=== PATIENT | female | born 1980 | race Two or more races ===

== ENCOUNTER 2020-10-19 07:19 | Emergency (ER) | payer OTHER, SELFPAY ==
[2020-10-19 07:28] VITALS: BP 144/95; PULSE 84; RESP 16; TEMP 36.8; O2SAT 96; BMI 16.1
--- NOTE | 2020-10-19 07:28 | ED.URI ---
HPI - URI/Sore Throat General Chief Complaint: Dyspnea Stated Complaint: sob Time Seen by Provider: 10/19/20 07:28 Source: patient Mode of arrival: ambulatory Limitations: no limitations History of Present Illness MD elicited complaint: cough, sore throat and other (asthma) Pertinent past history: asthma Onset (ago): week(s) (7) Consistency: constant Severity: moderate Able to tolerate fluids by mouth: Yes Exacerbating factors: swallowing Relieving factors: other (ran out of her INH) Context: sick contacts (kids had mild URI and one had ear infection) Associated symptoms: chills, myalgias, sore throat, cough and shortness of breath Treatments prior to arrival: none Related Data Home Medications Medication Instructions Recorded Confirmed pantoprazole 20 mg tablet,delayed 20 mg PO DAILY 10/16/20 release Previous Rx's Medication Instructions Recorded albuterol sulfate 2 puff INHALATION QID PRN #6.7 g 10/19/20 azithromycin See Rx Instructions PO .COMPLEX #6 10/19/20 tab pantoprazole 20 mg PO DAILY #30 tab 10/19/20 prednisone 40 mg PO DAILY 4 Days #8 tab 10/19/20 Allergies Allergy/AdvReac Type Severity Reaction Status Date / Time No Known Allergies Allergy Unverified 07/16/20 17:29 Review of Systems Review of Systems: Constitutional : No Fever, No Chills ENT/Mouth : pos sore throat, No Rhinorrhea, No Swallowing Difficulty Eyes: No Eye Pain, No Swelling, No Redness Cardiovascular : No Chest Pain, positive SOB, No Orthopnea, no Edema Respiratory : pos Cough, No Sputum, pos Wheezing, positive dyspnea Gastrointestinal : No Nausea, No Vomiting, No Diarrhea, No abdominal Pain, No Hematochezia, No Melena Genitourinary : No Dysuria, No Urinary Frequency, No Hematuria Musculoskeletal : No joint pain, pos Myalgias Skin : No Skin Lesions, No rash Neuro : No Weakness, No Numbness, No Dizziness, No Headache All other systems reviewed and are negative PMFSH Past Medical History Attestation statement: The following information was validated with the patient. Medical History Asthma GERD (gastroesophageal reflux disease) Hypertension SVT (supraventricular tachycardia) Social History Social History (Updated 10/19/20 @ 07:37 by Corie Win DO) Smoking Status: Current every day smoker Use of substances other than those prescribed or required for medical reasons: No Advance Directives: No Advance Directives Information Provided: No Physical Exam Vital Signs: Vital Signs: Last Vital Signs Temp 98.2 F 10/19/20 07:28 Pulse 84 10/19/20 07:28 Resp 16 10/19/20 07:28 BP 144/95 H 10/19/20 07:28 Pulse Ox 96 10/19/20 07:28 Body Mass Index 16.1 Appearance: Alert. Oriented X3. No acute distress. Eyes: Pupils equal, round and reactive to light. ENT: Pharynx normal. mild erythema no swelling no exudates Neck: Normal inspection. Neck supple. CVS: Normal heart rate and rhythm. Pulses normal. Respiratory: No respiratory distress. Breath sounds faint end exp wheezes Abdomen: Soft and nontender. Skin: Skin warm and dry. Normal skin color. Normal skin turgor. Extremities: No lower extremity edema. No calf ttp Neuro: Oriented X 3. No motor deficit. No sensory deficit. MDM - URI/Sore Throat MDM Narrative Medical decision making narrative: 39 yo female with asthma now with URI ran out of her INH has faint wheezes - INH and prednisone ordered, CXR and covid swab, no resp distress, 96% on RA - pharynx appears viral no exudates or swelling, anticipate DC after supportive medications Lab Data Labs: Lab Results 10/19/20 Range/Units 09:13 Coronavirus (PCR) POSITIVE A (Negative) Influenza Type A (PCR) NEGATIVE (Negative) Influenza Type B (PCR) NEGATIVE (Negative) RSV RNA Qual (PCR) NEGATIVE (Negative) Discharge Plan Discharge Clinical Impression: Asthma with exacerbation, Pneumonia, COVID-19 Patient Disposition: Home, Self-Care Instructions: Asthma (ED), Pneumonia (ED), COVID-19 (Coronavirus Disease 2019) (ED) Additional Instructions: return to ED for any worsening symptoms or concerns Prescriptions: New pantoprazole 20 mg tablet,delayed release (DR/EC) 20 mg PO DAILY Qty: 30 RF: 2 prednisone 20 mg tablet 40 mg PO DAILY 4 Days Qty: 8 RF: 0 azithromycin 500 mg tablet See Rx Instructions PO .COMPLEX Qty: 6 RF: 0 albuterol sulfate 90 mcg/actuation HFA aerosol inhaler 2 puff inhalation QID PRN (Reason: shortness of breath or wheezing) Qty: 6.7 RF: 0 No Action pantoprazole 20 mg tablet,delayed release (DR/EC) 20 mg PO DAILY RF: 0 Referrals: Physician,None [Primary Care Provider] - 5 days (if not better)
--- NOTE | 2020-10-19 07:34 | XR_ITS ---
EXAMINATION: XR CHEST CLINICAL INFORMATION: Cough COMPARISON: May 04, 2020 TECHNIQUE: AP portable view of the chest was obtained. FINDINGS: There appears be a small focus of disease within the right upper lobe adjacent to the anterior aspect of the right third rib. No pneumothorax or pleural effusion. Heart normal size. No evidence of pulmonary edema. XR/XR chest 1V IMPRESSION: Small focus of density right upper lobe which may be related to atelectasis or pneumonitis and does not appear to be in its entirety representing calcifying cartilage anterior rib..
[2020-10-19] MEDS: predniSONE 20 MG TABLET 60 MG PO (07:39)
[2020-10-19] MEDS: Albuterol Sulfate 90 MCG 8 GM INHALER 4 PUFF INHALE (08:04)
[2020-10-19 10:16] LABS: Influenza A PCR NEGATIVE (Negative); Influenza B PCR NEGATIVE (Negative); Resp Syncy Virus RNA Qual PCR NEGATIVE (Negative); SARS COV2 PCR INHOUSE POSITIVE (Negative)
[2020-10-19] MEDS: Omeprazole 40 MG CAPSULE.DR 20 MG PO (10:51)
== END 2020-10-19 11:44 | disposition home or self-care (01) ==
LOC: HO.ED 07:58
PROVIDERS: Emergency Provider Emergency Medicine
DX: U07.1 COVID-19 (principal); J12.89 Other viral pneumonia; J45.901 Unspecified asthma with (acute) exacerbation; I10 Essential (primary) hypertension
CPT/HCPCS: 0241U; 71045; 99283

== ENCOUNTER 2020-10-23 19:06 | Inpatient (IN) | payer OTHER, SELFPAY ==
[2020-10-23] VITALS (7 sets, daily range): BP systolic 151–197; BP diastolic 89–119; PULSE 67–82; RESP 20–28; TEMP 36.7–36.9; O2SAT 87–98; BMI 36.6
--- NOTE | 2020-10-23 20:09 | CT_ITS ---
EXAMINATION: CT CHEST, ABDOMEN AND PELVIS WITH CONTRAST CLINICAL INFORMATION: COVID positive. COMPARISON: No pertinent prior studies are available for comparison. TECHNIQUE: Multidetector volumetric imaging was performed from the thoracic inlet through the pubic symphysis without contrast. Sagittal and coronal reformatted images were obtained on the technologist workstation. Total exam dose-length product 844 mGy-cm FINDINGS: CHEST: Lung: Multifocal airspace/ground-glass opacity extensively throughout bilateral lungs. Findings likely related to inflammatory/infectious process given the clinical history. Pleura: No pleural effusion or pneumothorax. Mediastinum: Prevascular lymph node measuring 0.8 cm in short axis. Additional subcentimeter lymph nodes in the mediastinum. No hilar lymphadenopathy. Visualized thyroid gland appears unremarkable. Normal caliber aorta. Normal heart size. No pericardial effusion. Chest Wall/Axilla: No axillary or internal mammary lymphadenopathy. ABDOMEN/PELVIS: Liver, Gallbladder and Biliary Tree: Liver measures 21.3 cm craniocaudal. Marked diffuse fatty infiltration. No gallstones or acute inflammatory changes. Pancreas: There is stranding, inflammatory and fluid adjacent to the pancreas, and in the mesentery. This could be related to pancreatitis. Spleen: Normal size. No focal lesion. Adrenal Glands: Unremarkable. Kidneys and Ureters: The kidneys are normal in size, shape, and attenuation. No hydronephrosis, hydroureter, or calculi. Gastrointestinal Tract: Stomach and small bowel non-dilated. No colonic wall thickening or pericolonic inflammatory changes. The distal aspect of the appendix is thickened, measuring 1.2 cm AP. There is mild haziness in the right mesentery and adjacent to the right appendix. This could be related to the inflammatory changes otherwise present, but acute appendicitis cannot be entirely excluded. Abdominal Wall: No significant hernia is appreciated. Lymphovascular Structures: No lymphadenopathy. The aorta is unremarkable. Bladder: No focal mass or wall thickening seen. No bladder calculi. Pelvic Viscera: Unremarkable. Osseous Structures: No acute or suspicious osseous abnormality. CT/CT abdomen pelvis wo con IMPRESSION: 1. Extensive multifocal ground-glass and airspace opacities diffusely in bilateral hemithoraces. Findings likely reflect inflammatory/infectious process, given the clinical history of COVID positive. 2. Hepatomegaly. Marked hepatic steatosis. 3. Inflammatory changes adjacent to the pancreas and within the mesentery, suggestive of acute pancreatitis. Please clinically correlate, correlate with blood work. 4. Distal aspect of the appendix is thickened, measuring 1.2 cm. There is mild haziness adjacent to the appendix, and in the right-sided mesentery. Findings are nonspecific. Acute appendicitis cannot be entirely excluded.
--- NOTE | 2020-10-23 20:10 | ECG_ITS ---
Test Reason : ABD PAIN Blood Pressure : / mmHG Vent. Rate : 066 BPM Atrial Rate : 066 BPM P-R Int : 142 ms QRS Dur : 090 ms QT Int : 444 ms P-R-T Axes : 064 052 045 degrees QTc Int : 465 ms Normal sinus rhythm Normal ECG When compared with ECG of 04-MAY-2020 19:45, No significant change was found Referred By: Delma Morin Electronically Signed By:PARVIN MEDELLIN MD
--- NOTE | 2020-10-23 20:40 | ED.SOB ---
HPI - SOB/Dyspnea General Chief Complaint: Dyspnea Stated Complaint: SOB + Covid Time Seen by Provider: 10/23/20 20:09 Source: patient Mode of arrival: ambulatory Limitations: no limitations History of Present Illness HPI Narrative: 39-year-old female with past medical history of COVID positive on 10/19/2020, history of alcoholism, on methadone, hypertension presents with worsening shortness of breath and diffuse abdominal pain. When discharged on 10/19/2020 she was given azithromycin and prednisone. She states that she finished those medications but does not feel any better at this time. She reports drinking several large beers a day and that she does have withdrawals when she does not drink. She does have some chest pain, shortness of breath, abdominal pain, abdominal distention, and weakness. MD elicited complaint: shortness of breath, cough, pain with inspiration and anxiety Onset (ago): day(s) Context: recent illness Timing: constant Severity: severe Exacerbating factors: lying flat, exertion, movement, coughing, inspiration and talking Relieving factors: nothing Associated symptoms: fever, cough, wheezing and abdominal pain Related Data Home Medications Medication Instructions Recorded Confirmed metoprolol tartrate 100 mg PO BID 10/23/20 10/23/20 Previous Rx's Medication Instructions Recorded albuterol sulfate 2 puff INHALATION QID PRN #6.7 g 10/19/20 azithromycin See Rx Instructions PO .COMPLEX #6 10/19/20 tab pantoprazole 20 mg PO DAILY #30 tab 10/19/20 prednisone 40 mg PO DAILY 4 Days #8 tab 10/19/20 Allergies Allergy/AdvReac Type Severity Reaction Status Date / Time No Known Allergies Allergy Verified 10/23/20 22:37 Review of Systems Review of Systems: Constitutional: positive Fever, positive Chills, positive fatigue, positive Malaise ENT/Mouth: No sore throat, positive runny nose Eyes: No Discharge Cardiovascular: Positive Chest Pain, positive SOB Respiratory: Positive Cough, No Sputum, No Wheezing, No Smoke Exposure, No Dyspnea Gastrointestinal: Positive Nausea, No Vomiting, No Diarrhea positive abdominal pain Genitourinary: no irregular bleeding, No Dysuria, No Urinary Frequency, No Hematuria, No Urinary Incontinence, No Urgency, No Flank Pain, Musculoskeletal: positive Myalgia Skin: No rash Neuro: No Headache Yes all other systems are reviewed and are negative PMFSH Past Medical History Attestation statement: The following information was validated with the patient. Source: old records reviewed Medical History Asthma GERD (gastroesophageal reflux disease) Hypertension SVT (supraventricular tachycardia) Social History Social History Alcohol intake: current Alcohol intake frequency: 3 or more drinks per day Alcohol type: beer Smoking Status: Current every day smoker Use of substances other than those prescribed or required for medical reasons: No Advance Directives: No Advance Directives Information Provided: No Physical Exam Vital Signs: Vital Signs: Last Vital Signs Temp 98.1 F 10/23/20 22:23 Pulse 65 10/24/20 00:00 Resp 22 H 10/24/20 00:00 BP 153/74 H 10/24/20 00:00 Pulse Ox 93 10/24/20 00:00 Body Mass Index 36.6 Appearance: Alert. Oriented X3. Moderate distress. Eyes: Pupils equal, round and reactive to light. ENT: Pharynx normal. Neck: Normal inspection. Neck supple. CVS: Normal heart rate and rhythm. Pulses normal. Respiratory: No respiratory distress. Breath sounds normal. Abdomen: Soft and diffusely tender. Skin: Skin warm and dry. Normal skin color. Normal skin turgor. Extremities: No lower extremity edema. Neuro: No motor deficit. No sensory deficit. Course Course Course Narrative: 39-year-old female presents with worsening COVID-19 symptoms. She does describe diffuse abdominal pain and distension, does drink alcohol on daily basis, is on methadone for pain management. Plan of care is for CT scan of chest and abdomen, CBC, Chem 7, lactic and cultures. At 10:15 p.m. we started aggressive fluid resuscitation for pancreatitis, gave Zosyn and discussed this case with on-call surgery. Dr Wagoner reviewed the CT scan, feels that patient is stable enough for evaluation for tomorrow morning. Discussion with Dr. Wahl, plan of care is to admit for ETOH withdrawals, pancreatitis, COVID-19 and hypoxia. Focal assessment completed. At 11:15 p.m., focal assessment completed At 12:20 a.m., focal assessment completed. At 1:30 a.m., focal assessment completed. Patient did ambulate to the restroom without O2, O2 sats dropped to the 70s. Patient was returned to O2 at 2 L at 87%, titrated up to 4 L with an O2 sat of 93%. Reevaluation(s) Reevaluation #1: CT scan positive for hepatomegaly, pancreatitis, and suspected appendicitis. Dr. Wagoner contacted. Sepsis protocol started at this time. Time: 22:07 Consultations Consultation #1: Rizwana Time: 22:00 Consultation #2: Maryuri Time: 22:10 MDM - SOB/Dyspnea MDM Narrative Medical decision making narrative: COVID-19, hypoxia, appendicitis, pancreatitis, diverticulitis, constipation, SBO, ETOH withdrawal Differential Diagnosis Differential diagnosis: Likely pneumonia Medical Records Attestation: I reviewed the patient's medical records. Lab Data Attestation: I reviewed the patient's lab results. Result diagrams: 10/23/20 20:39 10/23/20 22:04 Labs: Lab Results 10/23/20 10/23/20 10/23/20 Range/Units 20:39 20:39 20:39 WBC 9.7 (4.8-10.8) X10*3/uL RBC 3.54 L (4.20-5.50) X10*6/uL Hgb 12.7 (12.0-16.0) g/dl Hct 35.9 L (37-47) % MCV 101.4 H (80-98) fL MCH 35.9 H (27.0-33.0) pg MCHC 35.4 H (31.0-35.0) g/dl RDW 12.9 (11.0-16.0) % Plt Count 251 (160-400) X10*3/uL MPV 10.5 (9.4-12.3) fL Immature Gran % (Auto) 0.9 H (0.0-0.4) % Neut % (Auto) 74.1 H (45-73) % Lymph % (Auto) 20.7 (20-40) % [place] % (Auto) 3.9 (2-11) % Eos % (Auto) 0.3 (0-4) % Baso % (Auto) 0.1 (0-2) % Lymph # (Auto) 2.0 (1.2-4.9) X10*3/uL [place] # (Auto) 0.4 (0.1-1.2) X10*3/uL Eos # (Auto) 0.0 (0.0-0.4) X10*3/uL Baso # (Auto) 0.0 (0.0-0.2) X10*3/uL Abs Immat Gran (auto) 0.09 H (0.00-0.03) X10*3/uL Absolute Neuts (auto) 7.2 (2.0-8.3) X10*3/uL Absolute Nucleated RBC 0.000 (0.0-0.012) X10*3/uL Nucleated RBC % (auto) 0.0 (0.0-0.2) /100WBC Sodium Cancelled Potassium Cancelled Chloride Cancelled Carbon Dioxide Cancelled Anion Gap Cancelled BUN Cancelled Creatinine Cancelled Estim Creat Clear Calc Cancelled Estimated GFR Cancelled Random Glucose Cancelled Lactic Acid (0.5-2.0) mmol/L Calcium Cancelled Magnesium Cancelled Total Bilirubin Cancelled Direct Bilirubin Cancelled AST Cancelled ALT Cancelled Alkaline Phosphatase Cancelled Troponin I High Sens (<3.5-17.0) ng/L Total Protein Cancelled Albumin Cancelled Triglycerides mg/dL Lipase Cancelled 10/23/20 10/23/20 10/23/20 Range/Units 20:39 21:30 22:04 WBC (4.8-10.8) X10*3/uL RBC (4.20-5.50) X10*6/uL Hgb (12.0-16.0) g/dl Hct (37-47) % MCV (80-98) fL MCH (27.0-33.0) pg MCHC (31.0-35.0) g/dl RDW (11.0-16.0) % Plt Count (160-400) X10*3/uL MPV (9.4-12.3) fL Immature Gran % (Auto) (0.0-0.4) % Neut % (Auto) (45-73) % Lymph % (Auto) (20-40) % [place] % (Auto) (2-11) % Eos % (Auto) (0-4) % Baso % (Auto) (0-2) % Lymph # (Auto) (1.2-4.9) X10*3/uL [place] # (Auto) (0.1-1.2) X10*3/uL Eos # (Auto) (0.0-0.4) X10*3/uL Baso # (Auto) (0.0-0.2) X10*3/uL Abs Immat Gran (auto) (0.00-0.03) X10*3/uL Absolute Neuts (auto) (2.0-8.3) X10*3/uL Absolute Nucleated RBC (0.0-0.012) X10*3/uL Nucleated RBC % (auto) (0.0-0.2) /100WBC Sodium 140 137 Potassium 3.2 L 3.1 L Chloride 103 100 Carbon Dioxide 23 25 Anion Gap 17 15 BUN 10 10 Creatinine 0.92 0.94 Estim Creat Clear Calc 97.9 95.8 Estimated GFR > 60 > 60 Random Glucose 92 88 Lactic Acid (0.5-2.0) mmol/L Calcium 8.2 L 8.3 L Magnesium 1.8 Total Bilirubin 2.9 H 3.0 H Direct Bilirubin 2.2 H 2.2 H AST 216 H 227 H ALT 118 H 122 H Alkaline Phosphatase 141 H 143 H Troponin I High Sens 4.0 (<3.5-17.0) ng/L Total Protein 7.0 7.2 Albumin 3.7 3.8 Triglycerides 221 mg/dL Lipase 1016 H 1089 H 12/25/20 Range/Units 22:04 WBC (4.8-10.8) X10*3/uL RBC (4.20-5.50) X10*6/uL Hgb (12.0-16.0) g/dl Hct (37-47) % MCV (80-98) fL MCH (27.0-33.0) pg MCHC (31.0-35.0) g/dl RDW (11.0-16.0) % Plt Count (160-400) X10*3/uL MPV (9.4-12.3) fL Immature Gran % (Auto) (0.0-0.4) % Neut % (Auto) (45-73) % Lymph % (Auto) (20-40) % [place] % (Auto) (2-11) % Eos % (Auto) (0-4) % Baso % (Auto) (0-2) % Lymph # (Auto) (1.2-4.9) X10*3/uL [place] # (Auto) (0.1-1.2) X10*3/uL Eos # (Auto) (0.0-0.4) X10*3/uL Baso # (Auto) (0.0-0.2) X10*3/uL Abs Immat Gran (auto) (0.00-0.03) X10*3/uL Absolute Neuts (auto) (2.0-8.3) X10*3/uL Absolute Nucleated RBC (0.0-0.012) X10*3/uL Nucleated RBC % (auto) (0.0-0.2) /100WBC Sodium Potassium Chloride Carbon Dioxide Anion Gap BUN Creatinine Estim Creat Clear Calc Estimated GFR Random Glucose Lactic Acid 1.8 (0.5-2.0) mmol/L Calcium Magnesium Total Bilirubin Direct Bilirubin AST ALT Alkaline Phosphatase Troponin I High Sens (<3.5-17.0) ng/L Total Protein Albumin Triglycerides mg/dL Lipase Imaging Data CT scan - chest: Attestation: I personally reviewed and interpreted this imaging study as follows: Radiologist's impression: EXAMINATION: CT CHEST, ABDOMEN AND PELVIS WITH CONTRAST CLINICAL INFORMATION: COVID positive. COMPARISON: No pertinent prior studies are available for comparison. TECHNIQUE: Multidetector volumetric imaging was performed from the thoracic inlet through the pubic symphysis without contrast. Sagittal and coronal reformatted images were obtained on the technologist workstation. Total exam dose-length product 844 mGy-cm FINDINGS: CHEST: Lung: Multifocal airspace/ground-glass opacity extensively throughout bilateral lungs. Findings likely related to inflammatory/infectious process given the clinical history. Pleura: No pleural effusion or pneumothorax. Mediastinum: Prevascular lymph node measuring 0.8 cm in short axis. Additional subcentimeter lymph nodes in the mediastinum. No hilar lymphadenopathy. Visualized thyroid gland appears unremarkable. Normal caliber aorta. Normal heart size. No pericardial effusion. Chest Wall/Axilla: No axillary or internal mammary lymphadenopathy. ABDOMEN/PELVIS: Liver, Gallbladder and Biliary Tree: Liver measures 21.3 cm craniocaudal. Marked diffuse fatty infiltration. No gallstones or acute inflammatory changes. Pancreas: There is stranding, inflammatory and fluid adjacent to the pancreas, and in the mesentery. This could be related to pancreatitis. Spleen: Normal size. No focal lesion. Adrenal Glands: Unremarkable. Kidneys and Ureters: The kidneys are normal in size, shape, and attenuation. No hydronephrosis, hydroureter, or calculi. Gastrointestinal Tract: Stomach and small bowel non-dilated. No colonic wall thickening or pericolonic inflammatory changes. The distal aspect of the appendix is thickened, measuring 1.2 cm AP. There is mild haziness in the right mesentery and adjacent to the right appendix. This could be related to the inflammatory changes otherwise present, but acute appendicitis cannot be entirely excluded. Abdominal Wall: No significant hernia is appreciated. Lymphovascular Structures: No lymphadenopathy. The aorta is unremarkable. Bladder: No focal mass or wall thickening seen. No bladder calculi. Pelvic Viscera: Unremarkable. Osseous Structures: No acute or suspicious osseous abnormality. CT/CT chest wo con IMPRESSION: 1. Extensive multifocal ground-glass and airspace opacities diffusely in bilateral hemithoraces. Findings likely reflect inflammatory/infectious process, given the clinical history of COVID positive. 2. Hepatomegaly. Marked hepatic steatosis. 3. Inflammatory changes adjacent to the pancreas and within the mesentery, suggestive of acute pancreatitis. Please clinically correlate, correlate with blood work. 4. Distal aspect of the appendix is thickened, measuring 1.2 cm. There is mild haziness adjacent to the appendix, and in the right-sided mesentery. Findings are nonspecific. Acute appendicitis cannot be entirely excluded. ECG Data Attestation: I personally reviewed and interpreted this ECG as follows: ECG interpretation date: 10/23/20 ECG interpretation time: 21:31 Prior ECG tracings: available for review Interpretation: Vent. Rate : 066 BPM Atrial Rate : 066 BPM P-R Int : 142 ms QRS Dur : 090 ms QT Int : 444 ms P-R-T Axes : 064 052 045 degrees QTc Int : 465 ms Normal sinus rhythm Normal ECG When compared with ECG of 04-MAY-2020 19:45, No significant change was found Critical Care Time Critical Care Time Critical Care Time: Yes Total Critical Care Time: 120 Attestation: I have personally provided critical care time exclusive of time spent on separately billable procedures. Time includes review of laboratory data, radiology results, discussion with consultants, and monitoring for potential decompensation. Interventions were performed as documented. Discharge Plan Discharge Clinical Impression: COVID-19, Hypoxia Alcohol withdrawal Qualifiers: Complication of substance-induced condition: uncomplicated Qualified Code(s): F10.230 - Alcohol dependence with withdrawal, uncomplicated Acute pancreatitis Qualifiers: Pancreatitis type: alcohol induced Acute pancreatitis complication: unspecified Qualified Code(s): K85.20 - Alcohol induced acute pancreatitis without necrosis or infection Patient Disposition: Admitted As Inpatient
[2020-10-23 20:45] LABS: MANUAL DIFF FLAG NO
[2020-10-23 20:47] LABS: Basophils Percent Auto 0.1 % (0-2); Eosinophils Percent Auto 0.3 % (0-4); Hematocrit 35.9 % (37-47); Hemoglobin 12.7 g/dl (12.0-16.0); Imm Gran Abs Auto 0.09 X10*3/uL (0.00-0.03); Imm Gran Pct Auto 0.9 % (0.0-0.4); Lymphocytes Percent Auto 20.7 % (20-40); Mean Corpuscular HGB Conc 35.4 g/dl (31.0-35.0); Mean Corpuscular Hemoglobin 35.9 pg (27.0-33.0); Mean Corpuscular Volume 101.4 fL (80-98); Mean Platelet Volume 10.5 fL (9.4-12.3); Monocytes Absolute Auto 0.4 X10*3/uL (0.1-1.2); Monocytes Percent Auto 3.9 % (2-11); Neutrophils Absolute Auto 7.2 X10*3/uL (2.0-8.3); Neutrophils Percent Auto 74.1 % (45-73); Platelet Count 251 X10*3/uL (160-400); Red Blood Count 3.54 X10*6/uL (4.20-5.50); Red Cell Distribution Width 12.9 % (11.0-16.0); White Blood Count 9.7 X10*3/uL (4.8-10.8)
[2020-10-23] MEDS: ondansetron HCL 4 MG/2 ML VIAL IVPUSH (21:24)
[2020-10-23] MEDS: Morphine Sulfate 4 MG/ML CARTRIDGE IVPUSH (21:24)
--- NOTE | 2020-10-23 21:45 | PC.NURSE ---
PT TESTED COVID + 4 DAYS AGO. C/O SOB X 3 DAYS, IN ADDITION TO SEVERE RUQ PAIN SINCE THIS AM. NO HX GI ISSUES. DENIES ANY GI SXS OTHER THAN CONSTIPATION. LS CLEAR THROUGHOUT. DRY COUGH PRESENT. 87% ON RA. PLACED ON 3L O2.
[2020-10-23] MEDS: Piperacillin Sodium/Tazobactam 3.375 GM in 0.9 % Sodium Chloride 50 ML IV (22:19)
[2020-10-23] MEDS: 0.9 % Sodium Chloride 2,993.7 ML 2993.7 ML IVCONT (22:19)
[2020-10-23] MEDS: LORazepam 2 MG/ML VIAL IVPUSH ×2 (22:19→22:46)
[2020-10-23 22:24] LABS: Alanine Aminotransferase 118 U/L (0-31); Albumin Level 3.7 g/dL (3.5-5.0); Alkaline Phosphatase 141 U/L (39-117); Anion Gap 17 (12-20); Aspartate Amino Transferase 216 U/L (5-31); Bilirubin Direct 2.2 mg/dL (0.0-0.5); Bilirubin Total 2.9 mg/dL (0.0-1.0); Blood Urea Nitrogen 10 mg/dL (9-16); Calcium 8.2 mg/dL (8.4-10.2); Carbon Dioxide 23 mmol/L (22-29); Chloride 103 mmol/L (96-108); Creatinine Clr Calc Pharmacy 97.9; Estimated Glomerular Filt Rate > 60; Glucose Random 92 mg/dL (60-115); Lipase 1016 U/L (8-78); Magnesium 1.8 mg/dL (1.6-2.6); Potassium 3.2 mmol/l (3.3-5.1); Sodium 140 mmol/L (135-145)
[2020-10-23] MEDS: HYDROmorphone HCl 0.5 MG/0.5 ML SYRINGE IVPUSH (22:31)
[2020-10-23] MEDS: Metoprolol Tartrate 100 MG TABLET PO (22:42)
[2020-10-23 22:58] LABS: Lactic Acid 1.8 mmol/L (0.5-2.0)
[2020-10-23 23:02] LABS: Alanine Aminotransferase 122 U/L (0-31); Albumin Level 3.8 g/dL (3.5-5.0); Alkaline Phosphatase 143 U/L (39-117); Anion Gap 15 (12-20); Aspartate Amino Transferase 227 U/L (5-31); Bilirubin Direct 2.2 mg/dL (0.0-0.5); Blood Urea Nitrogen 10 mg/dL (9-16); Calcium 8.3 mg/dL (8.4-10.2); Carbon Dioxide 25 mmol/L (22-29); Chloride 100 mmol/L (96-108); Creatinine Clr Calc Pharmacy 95.8; Estimated Glomerular Filt Rate > 60; Glucose Random 88 mg/dL (60-115); Lipase 1089 U/L (8-78); Potassium 3.1 mmol/l (3.3-5.1); Sodium 137 mmol/L (135-145); Total Protein 7.2 g/dL (6.5-8.0)
--- NOTE | 2020-10-23 23:06 | PC.NURSE ---
pt continued to exhibit tremors after first dose of ativan, bp elevated. second dose ativan given as ordered.
[2020-10-24] VITALS (10 sets, daily range): BP systolic 135–176; BP diastolic 74–100; PULSE 63–80; RESP 16–24; TEMP 36.1–37.4; O2SAT 74–98
[2020-10-24] MEDS: PHENobarbitaL sodium 130 MG/ML VIAL 274 MG IM (00:55)
[2020-10-24 01:24] LABS: Triglycerides 221 mg/dL
[2020-10-24] MEDS: PHENobarbitaL sodium 130 MG/ML VIAL 205 MG IM ×2 (05:22→09:53)
--- NOTE | 2020-10-24 06:51 | PC.NURSE ---
phenobarbital scheduled for 329 given at 05. next dose scheduled is at 0630 and not given yet due to prev dose given late. next dose would be at 0830. pt has been resting calm and cooperatively
--- NOTE | 2020-10-24 06:54 | PC.NURSE ---
continue pt has been sleeping hr in the 60's skin warm and dry. next phenobarb at 0630 was not given due to too early.
--- NOTE | 2020-10-24 07:53 | PC.NURSE ---
attempt to call [facility]. no answer.
--- NOTE | 2020-10-24 09:40 | PC.NURSE ---
MULTIPLE CONTACTS MADE WITH PHARMACY. NEW ORDER TO BE PLACED FOR 0830 PHENOBARB. BY [facility] IN PHARMACY.
--- NOTE | 2020-10-24 11:59 | P.CONGS_ITS ---
History of Present Illness Consult details Consult date: 10/24/20 Narrative: 39-year-old female patient presenting to the emergency department for complaints of upper abdominal pain. The pain is been present for least the past 24 hours is located a bandlike fashion over the upper abdomen. She reports the pain is generally dull and constant. She is unaware of any alleviating factors. Pain is not made worse with motion. Her appetite is not good at this time. She was diagnosed with COVID earlier this week and feels her breathing has gotten worse with increased shortness of breath. She also reports a history of drinking beer on a daily basis. Workup in the emergency department included a CT of the abdomen and pelvis revealed the liver to be markedly enlarged and changes to the pancreas suggestive of pancreatitis. Ground-glass appearance was noted in the lungs consistent with a viral infection. The appendix tip was noted to be slightly enlarged with some inflammatory changes surrounding this. Appendicitis could not be ruled out based on the CT. Patient's admitting WBC was normal. Review of Systems Constitutional: Constitutional: Denies chills, Denies fever(s), Denies headache(s) and Denies poor appetite ENT: Denies dizziness and Denies headache(s) Cardiovascular: Cardiovascular: Denies chest pain, Reports rapid heart rate, Denies palpitations and Denies slow heart rate Respiratory: Respiratory: Reports chest congestion, Reports cough, Denies pain on inspiration and Denies wheezing Gastrointestinal: Gastrointestinal: Reports abdominal pain, Reports bloating, Denies change in stool character, Denies constipation, Denies diarrhea, Denies nausea, Denies vomiting and Denies hematemesis Comments: GERD Musculoskeletal: Musculoskeletal: Denies back pain, Reports arthralgias, Denies joint swelling and Denies numbness Integumentary/Breasts: Skin/Breast: Denies change in pigmentation, Denies erythema and Denies rash Neurologic: Denies confusion, Denies dizziness, Denies headache(s) and Denies numbness Psychiatric: Psychiatric: Denies anxiety, Denies confusion and Denies depression Endocrine: Endocrine: Denies palpitations Hematologic/Lymphatic: Hematologic/Lymphatic: Denies easy bleeding, Denies easy bruising and Denies lymphadenopathy Allergic/Immunologic: Allergic/Immunologic: Denies wheezing PMFSH Past Medical History Medical History Asthma GERD (gastroesophageal reflux disease) Hypertension SVT (supraventricular tachycardia) Social History Social History Alcohol intake: current Alcohol intake frequency: 3 or more drinks per day Alcohol type: beer Smoking Status: Current every day smoker Use of substances other than those prescribed or required for medical reasons: No Advance Directives: No Advance Directives Information Provided: No Meds Allergies Allergy/AdvReac Type Severity Reaction Status Date / Time No Known Allergies Allergy Verified 10/23/20 22:37 Home Medications Medication Instructions Recorded Confirmed Type metoprolol tartrate 100 mg PO BID 10/23/20 10/23/20 History Physical Exam Vital Signs: Vital Signs: Last Vital Signs Temp 98.5 F 10/24/20 11:47 Pulse 68 10/24/20 11:47 Resp 20 10/24/20 11:47 BP 140/98 H 10/24/20 11:47 Pulse Ox 96 10/24/20 11:47 Body Mass Index 36.6 Const: General: cooperative, comfortable and well developed; No confusion Nutritional Appearance: well nourished Orientation/consciousness: patient oriented x3 and No confusion Eyes: Sclerae: sclerae normal EOM: EOMs intact bilaterally Neck: Neck: Yes normal visual inspection Resp: Other: On nasal O2 Effort & Inspection: Actively coughing, respiratory distress and tachypneic Cardio: Jugular venous distension: no JVD Rate: regular rate Rhythm: regular rhythm GI: Other: No right lower quadrant abdominal pain to deep palpation Inspection: Yes normal to inspection Palpation (GI): Soft to palpation, Tenderness to palpation present (GI) (Right upper and left upper quadrant without rebound guarding or rigidity. ) Greene's sign negative, no guarding and not rigid Percussion: Yes normal to percussion Auscultation: normal bowel sounds Skin: General skin exam: dry skin Rashes: no rashes Neuro: General: patient oriented x3, no focal motor deficits and No confusion Extrem: General: Yes full ROM and Yes no clubbing, cyanosis or edema Results Labs Result diagrams: 10/23/20 20:39 10/23/20 22:04 Labs: Abnormal lab results 10/23/20 10/23/20 10/23/20 Range/Units 20:39 21:30 22:04 RBC 3.54 L (4.20-5.50) X10*6/uL Hct 35.9 L (37-47) % MCV 101.4 H (80-98) fL MCH 35.9 H (27.0-33.0) pg MCHC 35.4 H (31.0-35.0) g/dl Immature Gran % (Auto) 0.9 H (0.0-0.4) % Neut % (Auto) 74.1 H (45-73) % Abs Immat Gran (auto) 0.09 H (0.00-0.03) X10*3/uL Potassium 3.2 L 3.1 L (3.3-5.1) mmol/l Calcium 8.2 L 8.3 L (8.4-10.2) mg/dL Total Bilirubin 2.9 H 3.0 H (0.0-1.0) mg/dL Direct Bilirubin 2.2 H 2.2 H (0.0-0.5) mg/dL AST 216 H 227 H (5-31) U/L ALT 118 H 122 H (0-31) U/L Alkaline Phosphatase 141 H 143 H (39-117) U/L Lipase 1016 H 1089 H (8-78) U/L Short CBC 10/23/20 Range/Units 20:39 WBC 9.7 (4.8-10.8) X10*3/uL Hgb 12.7 (12.0-16.0) g/dl Hct 35.9 L (37-47) % Plt Count 251 (160-400) X10*3/uL BMP 10/23/20 10/23/20 10/23/20 20:39 21:30 22:04 Sodium Cancelled 140 137 Potassium Cancelled 3.2 L 3.1 L Chloride Cancelled 103 100 Carbon Dioxide Cancelled 23 25 BUN Cancelled 10 10 Creatinine Cancelled 0.92 0.94 Calcium Cancelled 8.2 L 8.3 L Liver Function 10/23/20 10/23/20 10/23/20 Range/Units 20:39 21:30 22:04 Total Bilirubin Cancelled 2.9 H 3.0 H Direct Bilirubin Cancelled 2.2 H 2.2 H AST Cancelled 216 H 227 H ALT Cancelled 118 H 122 H Alkaline Phosphatase Cancelled 141 H 143 H Albumin Cancelled 3.7 3.8 All other labs normal. Assessment and Plan (1) COVID-19: Status: Acute (2) Hypoxia: Status: Acute (3) Alcohol withdrawal: Qualifiers: Complication of substance-induced condition: uncomplicated Qualified Code(s): F10.230 - Alcohol dependence with withdrawal, uncomplicated Status: Acute (4) Acute pancreatitis: Qualifiers: Acute pancreatitis complication: unspecified Pancreatitis type: alcohol induced Qualified Code(s): K85.20 - Alcohol induced acute pancreatitis without necrosis or infection Status: Acute 39-year-old female presenting with worsening respiratory symptoms, COVID- 19 positive, found to have abdominal pain in the upper abdomen. Workup was suggestive of pancreatitis as well as hepatomegaly. Patient has a significant alcohol history. CT findings of a thickened appendix at the tip with possible surrounding inflammation is difficult to interpret but based on physical examination does not appear to be acute appendicitis. She is being admitted to the hospitalist service for management of the pancreatitis and COVID symptoms. No surgical intervention recommended at this time.
--- NOTE | 2020-10-24 16:56 | PC.NURSE ---
HOSPITALIST AWARE OF PT REQUESTING PAIN MEDICATION. PT FOUND IN ROOM SELF MEDICATING WITH METHADONE FROM HOME. PT REMINDED WE COULD NOT GET A HOLD OF [facility]IT [facility]- AFTER MULTIPLE ATTEMPTS. PT EDUCATED TO NOT SELF MEDICATE. HOSPITALIST AWARE.
--- NOTE | 2020-10-24 17:31 | PC.NURSE ---
pt has sandwich and multiple drinks at bedside offered earlier still there. pt ordered a ed diet. awaiting from kitchen. pt is very hard to arouse. very drowsy. pt incoherent when woken up and is falling back asleep. vitals retaken. hospitalist aware.
--- NOTE | 2020-10-24 17:34 | PC.NURSE ---
unable to doc vitals at this time- vss as follows 80hr 94% on 3l 142/91bp l arm upper. rr 14.
--- NOTE | 2020-10-24 18:54 | PC.NURSE ---
pt states she fell asleep with water in her hand. linen is wet. pt assisted to change bed sheet, clothes and assisted back to bed. pt cannot keep eyes open during conversation and remains drowsy. provider is aware.
--- NOTE | 2020-10-24 19:26 | PC.NURSE ---
REPORT TAKEN FROM BRIDGETTE BUCK, FIRST CONTACT WITH PT. SITTING UP IN BED A&Ox4 SKIN PWD RESPIRATIONS EVEN SLIGHLTY TACHYPNEIC. SAO2 97-99% ON 4L NC. VSS. AFEBRILE. TOLERATING PO FLUIDS. BED ASSIGNMENT JUST RECEIVED, AWAITING CALLBACK FOR REPORT. PT AWARE OF PLAN OF CARE.
--- NOTE | 2020-10-24 19:40 | PC.NURSE ---
REPORT GIVEN TO CINDY RN, CINDY MENTIONED A PREVIOUS DOCUMENTATION FROM [facility]NS IN REGARDS TO PT SELF MEDICATING WITH HER HOME MEDS IN ROOM, THIS RN ASKED PT FOR ANY HOME MEDS SO THAT THEY COULD BE DOCUMENTED AND SECURED WITH PHARMACY FOR ADMISSION. PT RETRIEVED AN EMPTY PREDNISONE BOTTLE FROM [employer], STATED SHE FINISHED HER ZPACK AND DID NOT HAVE ANYTHING ELSE ON HER. RECIEVING STAFF MEMBER ON [facility] NOTIFIED OF THIS.
[2020-10-24] MEDS: PHENobarbitaL 15 MG TABLET 45 MG PO (21:00)
[2020-10-24] MEDS: Folic Acid 1 MG TABLET PO (21:01)
[2020-10-24] MEDS: Enoxaparin Sodium 40 MG/0.4 ML SYRINGE SUBCUT (21:01)
[2020-10-24] MEDS: Lactated Ringers 1,000 ML 200 ML IVCONT (21:01)
[2020-10-24] MEDS: Thiamine HCL 100 MG TABLET PO (21:01)
[2020-10-24] MEDS: Metoprolol Tartrate 100 MG TABLET PO (21:01)
[2020-10-24] MEDS: dexAMETHasone sod phosphate 4 MG/ML VIAL 6 MG IVPUSH (21:01)
[2020-10-24] MEDS: metroNIDAZOLE/NS 500 MG/100 ML PIGGYBACK 100 MG IV (21:02)
[2020-10-24] MEDS: Morphine Sulfate 4 MG/ML CARTRIDGE IVPUSH (21:19)
[2020-10-24] MEDS: levoFLOXacin/D5W 750 MG/150 ML PIGGYBACK 100 MG IV (22:56)
[2020-10-25] VITALS (9 sets, daily range): BP systolic 111–177; BP diastolic 76–85; PULSE 60–110; RESP 18–24; TEMP 36.4–38.6; O2SAT 91–94
--- NOTE | 2020-10-25 | US_ITS ---
EXAMINATION: US ABDOMEN LIMITED CLINICAL INFORMATION: Pancreatitis.. COMPARISON: CT abdomen 10/23/2020. TECHNIQUE: Real-time imaging of the right upper quadrant abdominal viscera. FINDINGS: PANCREAS: The pancreas is heterogeneous. LIVER: The liver is enlarged with a left lobe measuring 16.0 cm in the right lobe measuring 21.7 cm. The liver is slightly echogenic with areas of focal fatty sparing. There is a trace free fluid along the anterior inferior aspect of right hepatic lobe. No intrahepatic ductal dilatation seen. GALLBLADDER: Normal. The gallbladder is physiologically distended without evidence of stones, sludge, polyps, wall thickening or pericholecystic fluid. COMMON BILE DUCT: Normal in caliber measuring 0.8 cm in diameter. RIGHT KIDNEY: Normal. No hydronephrosis. No renal calculi or focal parenchymal lesions. The kidney measures 12.8 cm in maximum dimension. FREE FLUID: None. US/US abdomen limited IMPRESSION: Hepatic steatosis with areas of focal fatty sparing. There is hepatomegaly with trace free fluid along the anterior inferior aspect of right hepatic lobe. The pancreas is is heterogenous but no focal enlargement seen.
[2020-10-25] MEDS: Lactated Ringers 1,000 ML 200 ML IVCONT ×3 (02:04→17:25)
[2020-10-25] MEDS: Morphine Sulfate 4 MG/ML CARTRIDGE IVPUSH ×4 (03:16→21:11)
[2020-10-25] MEDS: metroNIDAZOLE/NS 500 MG/100 ML PIGGYBACK 100 MG IV ×3 (04:45→21:03)
[2020-10-25] MEDS: Omeprazole 20 MG CAPSULE.DR PO (04:45)
[2020-10-25 05:52] LABS: MANUAL DIFF FLAG NO
[2020-10-25 05:57] LABS: Basophils Percent Auto 0.2 % (0-2); Eosinophils Absolute Auto 0.1 X10*3/uL (0.0-0.4); Eosinophils Percent Auto 0.5 % (0-4); Hemoglobin 11.1 g/dl (12.0-16.0); Imm Gran Abs Auto 0.06 X10*3/uL (0.00-0.03); Imm Gran Pct Auto 0.6 % (0.0-0.4); Lymphocytes Absolute Auto 1.3 X10*3/uL (1.2-4.9); Lymphocytes Percent Auto 13.5 % (20-40); Mean Corpuscular HGB Conc 35.8 g/dl (31.0-35.0); Mean Corpuscular Hemoglobin 36.2 pg (27.0-33.0); Mean Platelet Volume 11.3 fL (9.4-12.3); Monocytes Absolute Auto 0.2 X10*3/uL (0.1-1.2); Monocytes Percent Auto 2.3 % (2-11); Neutrophils Percent Auto 82.9 % (45-73); Platelet Count 175 X10*3/uL (160-400); Red Blood Count 3.07 X10*6/uL (4.20-5.50); Red Cell Distribution Width 12.7 % (11.0-16.0); White Blood Count 9.7 X10*3/uL (4.8-10.8)
[2020-10-25 06:27] LABS: Anion Gap 16 (12-20); Blood Urea Nitrogen 8 mg/dL (9-16); Calcium 7.3 mg/dL (8.4-10.2); Carbon Dioxide 23 mmol/L (22-29); Chloride 100 mmol/L (96-108); Creatinine Clr Calc Pharmacy 155.4; Estimated Glomerular Filt Rate > 60; Glucose Random 90 mg/dL (60-115); Potassium 3.3 mmol/l (3.3-5.1); Sodium 136 mmol/L (135-145)
[2020-10-25] MEDS: Metoprolol Tartrate 100 MG TABLET PO ×2 (08:30→21:05)
[2020-10-25] MEDS: PHENobarbitaL 15 MG TABLET 45 MG PO ×2 (08:30→21:15)
[2020-10-25] MEDS: Thiamine HCL 100 MG TABLET PO (08:30)
[2020-10-25] MEDS: dexAMETHasone sod phosphate 4 MG/ML VIAL 6 MG IVPUSH (08:30)
[2020-10-25] MEDS: Folic Acid 1 MG TABLET PO (09:36)
--- NOTE | 2020-10-25 14:27 | HO.PM.IMPN ---
Subjective Subjective Date of Service: 10/25/20 Interval History: Seen in f/u for acute alcoholic pancreatitis, covid PNA and alcohol withdrwal. Still has epig pain but is better Review of Systems Gen: no fever Resp: no sob, no cough CV: no chest, no BRICENO, no leg edema GI: abdominal pain Neuro: No confusion Physical Exam Vital Signs: Vital Signs: Last Vital Signs Temp 101.4 F H 10/25/20 11:21 Pulse 110 H 10/25/20 11:21 Resp 18 10/25/20 11:21 BP 111/76 10/25/20 11:21 Pulse Ox 92 10/25/20 11:21 Body Mass Index 36.6 General: AO X 3, no acute distress Resp: normal lung expansion CVS: S1,S2,RRR GI: +BS, NT, no distention Skin: No rash Neuro: motor grossly intact Psych: appropriate affect Objective Data Current Medications Generic Name Dose Route Start Last Admin Trade Name Freq PRN Reason Stop Dose Admin Acetaminophen 650 mg 10/24/20 20:39 Acetaminophen 325 Mg Tablet PO Q6H PRN Pain, Mild (Pain Scale 1-3) Albuterol Sulfate 2 puff 10/24/20 20:39 Albuterol Sulfate 90 Mcg 8 Gm Inhaler INHALE QID PRN shortness of breath or wheezing Dexamethasone Sodium Phosphate 6 mg 10/24/20 20:39 10/25/20 08:30 Dexamethasone Sod Phosphate 4 Mg/Ml Vial IVPUSH 6 mg DAILY JEFF Administration Docusate Sodium 100 mg 10/24/20 20:39 Docusate Sodium 100 Mg Capsule PO DAILY PRN Constipation Enoxaparin Sodium 40 mg 10/24/20 21:00 10/24/20 21:01 Enoxaparin Sodium 40 Mg/0.4 Ml Syringe SUBCUT 40 mg Q24H JEFF Administration Folic Acid 1 mg 10/24/20 20:39 10/25/20 09:36 Folic Acid 1 Mg Tablet PO 1 mg DAILY JEFF Administration Lactated Ringer's 1,000 mls @ 200 mls/hr 10/24/20 20:39 10/25/20 12:44 Lr IVCONT Not Given .Q5H JEFF Metronidazole 500 mg in 100 mls @ 100 mls/hr 10/24/20 20:39 10/25/20 13:15 Flagyl IV 100 mls/hr Q8H JEFF Administration Levofloxacin 750 mg in 150 mls @ 100 mls/hr 10/24/20 21:00 10/25/20 00:57 Levaquin IV Infused Q24H [facility] Infusion Medication 1 each 10/24/20 09:00 No Benzodiazepines MISCELLANE DAILY [facility] Methadone HCl 90 mg 10/25/20 14:30 Methadone Hcl 1 Mg/0.1 Ml Oral.Conc PO DAILY [facility] Metoprolol Tartrate 100 mg 10/24/20 21:00 10/25/20 08:30 Metoprolol Tartrate 100 Mg Tablet PO 100 mg BID [facility] Administration Morphine Sulfate 4 mg 10/24/20 20:39 10/25/20 09:36 Morphine Sulfate 4 Mg/Ml Cartridge IVPUSH 4 mg Q4H PRN Administration Pain, Severe (Pain Scale 7-10) Omeprazole 20 mg 10/25/20 06:30 10/25/20 04:45 Omeprazole 20 Mg Capsule.Dr PO 20 mg DAILY@0630 [facility] Administration Ondansetron HCl 4 mg 10/24/20 20:39 Ondansetron Hcl 4 Mg/2 Ml Vial IVPUSH Q8H PRN Nausea and Vomiting Pharmacy Consult 1 each 10/23/20 22:39 Consult Rx Perform Med Rec MISCELLANE ONCE PRN Consult order Phenobarbital 45 mg 10/24/20 21:00 10/25/20 08:30 Phenobarbital 15 Mg Tablet PO 10/26/20 09:01 45 mg BID [facility] Administration Phenobarbital 15 mg 10/26/20 21:00 Phenobarbital 15 Mg Tablet PO 10/28/20 09:01 BID [facility] Phenobarbital 15 mg 10/28/20 21:00 Phenobarbital 15 Mg Tablet PO 10/29/20 21:01 BEDTIME [facility] Sodium Chloride 3 ml 10/24/20 20:39 10/25/20 08:31 0.9 % Sodium Chloride Flush 3 Ml Syringe IVFLUSH Not Given QSHIFT [facility] Thiamine HCl 100 mg 10/24/20 20:39 10/25/20 08:30 Thiamine Hcl 100 Mg Tablet PO 100 mg DAILY [facility] Administration Labs CBC & Chem 7: 10/25/20 04:53 10/25/20 04:53 Microbiology Microbiology Results: Microbiology 10/23/20 22:04 Blood - Venous Blood Culture - Preliminary No growth after 24 hours. 10/23/20 22:04 Blood - Venous Blood Culture - Preliminary No growth after 24 hours. Assessment and Plan (1) COVID-19: Status: Acute (2) Alcohol withdrawal: Status: Acute (3) Acute pancreatitis: Status: Acute (4) Hypoxia: Status: Acute Assessment and Plan: (H and P not yet available) 39-year-old female with past medical history opioid dependence on Methadone, recent diagnosis of COVID on 10/19/2020 and sent home with Prednisone and Azithromycin, history of alcoholisms, hypertension. She presented with worsening shortness of breath and diffuse abdominal pain. CT of abdomen showed acute pancreatitis and Lipase level was over 1000 and concern of alcohol withdrawal as well, and hypoxia from covid. 1. Acute hypoxic respiratory failure from covid 19 PNA. She is still afebril and requiring Oxygen -Continue cortisteroid but change to Dexamethasone -continue Oxygen -ID cosult to see if need any additional treatment. -Continue Levaquin for possible superimpose bacterial pneumonia. Not sure about indication for Flagyl so will d/c 2. Acute Alcoholic Pancratitis--CT no stone. Seen by surgery, no surgical issue -NPO, start Liquid once Lipase is going down. IVF in the meantime 3. Alcohol withdrawal--Phenobarbital protocol, thiamine folate, CARE team consult before discharge 4. Opioid dependence--Continue Methadone 5.
[2020-10-25 15:12] LABS: Lipase 530 U/L (8-78)
--- NOTE | 2020-10-25 15:55 | MHC.CM.PN ---
CM ATTEMPTED TO CONTACT PT ON HER CELL PHONE NUMBER LISTED [phone]. CALL WENT TO . A MESSAGE WAS LEFT REQUESTING A CALL BACK.
[2020-10-25] MEDS: levoFLOXacin/D5W 750 MG/150 ML PIGGYBACK 100 MG IV (21:03)
[2020-10-25] MEDS: Enoxaparin Sodium 40 MG/0.4 ML SYRINGE SUBCUT (21:16)
[2020-10-26] VITALS (11 sets, daily range): BP systolic 132–161; BP diastolic 69–92; PULSE 55–84; RESP 18–22; TEMP 36.2–37.1; O2SAT 94–96; BMI 36.6
[2020-10-26] MEDS: Lactated Ringers 1,000 ML 200 ML IVCONT ×2 (01:24→08:15)
[2020-10-26] MEDS: metroNIDAZOLE/NS 500 MG/100 ML PIGGYBACK 100 MG IV (04:04)
[2020-10-26] MEDS: HYDROmorphone HCl 0.5 MG/0.5 ML SYRINGE IVPUSH (04:04)
[2020-10-26 04:07] LABS: HIV AB/AG Nonreactive (Nonreactive); HIV Num 1 0.11 S/CO (0.00-0.99); ~HepC Num1 0.14 S/CO (0.00-0.79); ~Hepatitis C Antibody Nonreactive (Nonreactive)
[2020-10-26] MEDS: Omeprazole 20 MG CAPSULE.DR PO (06:25)
[2020-10-26] MEDS: Metoprolol Tartrate 100 MG TABLET PO (08:16)
[2020-10-26] MEDS: dexAMETHasone sod phosphate 4 MG/ML VIAL 6 MG IVPUSH (08:16)
[2020-10-26] MEDS: Thiamine HCL 100 MG TABLET PO (08:16)
[2020-10-26] MEDS: Folic Acid 1 MG TABLET PO (08:16)
[2020-10-26] MEDS: PHENobarbitaL 15 MG TABLET 45 MG PO (08:16)
[2020-10-26] MEDS: Morphine Sulfate 4 MG/ML CARTRIDGE IVPUSH (08:17)
--- NOTE | 2020-10-26 09:01 | P.PNIM_ITS ---
Subjective Subjective Date of Service: 10/26/20 Interval History: Seen in f/u for acute alcoholic pancreatitis, covid PNA and alcohol withdrwal. Having severe epig pain going to back 08/08, worse with liquid diet Review of Systems Gen: no fever Resp: no sob, no cough CV: no chest, no BRICENO, no leg edema GI: abdominal pain Neuro: No confusion Physical Exam Vital Signs: Vital Signs: Last Vital Signs Temp 98.5 F 10/26/20 08:00 Pulse 84 10/26/20 08:16 Resp 18 10/26/20 08:17 BP 136/82 10/26/20 08:16 Pulse Ox 94 10/26/20 08:00 Body Mass Index 36.6 Const: Other: General: AO X 3, no acute distress Resp: normal effort CVS: S1,S2,RRR GI:epig tenderness Skin: No rash Neuro: motor grossly intact Psych: appropriate affect Objective Data Current Medications Generic Name Dose Route Start Last Admin Trade Name Freq PRN Reason Stop Dose Admin Acetaminophen 650 mg 10/24/20 20:39 Acetaminophen 325 Mg Tablet PO Q6H PRN Pain, Mild (Pain Scale 1-3) Albuterol Sulfate 2 puff 10/24/20 20:39 Albuterol Sulfate 90 Mcg 8 Gm Inhaler INHALE QID PRN shortness of breath or wheezing Dexamethasone Sodium Phosphate 6 mg 10/24/20 20:39 10/26/20 08:16 Dexamethasone Sod Phosphate 4 Mg/Ml Vial IVPUSH 6 mg DAILY JEFF Administration Docusate Sodium 100 mg 10/24/20 20:39 Docusate Sodium 100 Mg Capsule PO DAILY PRN Constipation Enoxaparin Sodium 40 mg 10/24/20 21:00 10/25/20 21:16 Enoxaparin Sodium 40 Mg/0.4 Ml Syringe SUBCUT 40 mg Q24H JEFF Administration Folic Acid 1 mg 10/24/20 20:39 10/26/20 08:16 Folic Acid 1 Mg Tablet PO 1 mg DAILY JEFF Administration Lactated Ringer's 1,000 mls @ 200 mls/hr 10/24/20 20:39 10/26/20 08:15 Lr IVCONT 200 mls/hr .Q5H JEFF Administration Metronidazole 500 mg in 100 mls @ 100 mls/hr 10/24/20 20:39 10/26/20 05:10 Flagyl IV Infused Q8H [facility] Infusion Levofloxacin 750 mg in 150 mls @ 100 mls/hr 10/24/20 21:00 10/26/20 00:31 Levaquin IV Infused Q24H [facility] Infusion Medication 1 each 10/24/20 09:00 No Benzodiazepines MISCELLANE DAILY [facility] Methadone HCl 90 mg 10/25/20 14:30 10/26/20 08:16 Methadone Hcl 1 Mg/0.1 Ml Oral.Conc PO 90 mg DAILY JEFF Administration Metoprolol Tartrate 100 mg 10/24/20 21:00 10/26/20 08:16 Metoprolol Tartrate 100 Mg Tablet PO 100 mg BID JEFF Administration Morphine Sulfate 4 mg 10/24/20 20:39 10/26/20 08:17 Morphine Sulfate 4 Mg/Ml Cartridge IVPUSH 4 mg Q4H PRN Administration Pain, Severe (Pain Scale 7-10) Omeprazole 20 mg 10/25/20 06:30 10/26/20 06:25 Omeprazole 20 Mg Capsule.Dr PO 20 mg DAILY@0630 [facility] Administration Ondansetron HCl 4 mg 10/24/20 20:39 Ondansetron Hcl 4 Mg/2 Ml Vial IVPUSH Q8H PRN Nausea and Vomiting Pharmacy Consult 1 each 10/23/20 22:39 Consult Rx Perform Med Rec MISCELLANE ONCE PRN Consult order Phenobarbital 15 mg 10/26/20 21:00 Phenobarbital 15 Mg Tablet PO 10/28/20 09:01 BID [facility] Phenobarbital 15 mg 10/28/20 21:00 Phenobarbital 15 Mg Tablet PO 10/29/20 21:01 BEDTIME [facility] Sodium Chloride 3 ml 10/24/20 20:39 10/26/20 08:15 0.9 % Sodium Chloride Flush 3 Ml Syringe IVFLUSH Not Given QSHIFT [facility] Thiamine HCl 100 mg 10/24/20 20:39 10/26/20 08:16 Thiamine Hcl 100 Mg Tablet PO 100 mg DAILY [facility] Administration Labs CBC & Chem 7: 10/25/20 04:53 10/25/20 04:53 Microbiology Microbiology Results: Microbiology 10/23/20 22:04 Blood - Venous Blood Culture - Preliminary No growth after 48 hours. 10/23/20 22:04 Blood - Venous Blood Culture - Preliminary No growth after 48 hours. Assessment and Plan (1) COVID-19: Status: Acute (2) Alcohol withdrawal: Status: Acute (3) Acute pancreatitis: Status: Acute (4) Hypoxia: Status: Acute Assessment and Plan: (H and P not yet available) 39-year-old female with past medical history opioid dependence on Methadone, recent diagnosis of COVID on 10/19/2020 and sent home with Prednisone and Azithromycin, history of alcoholisms, hypertension. She presented with worsening shortness of breath and diffuse abdominal pain. CT of abdomen showed acute pancreatitis and Lipase level was over 1000 and concern of alcohol withdrawal as well, and hypoxia from covid. 1. Acute hypoxic respiratory failure from covid 19 PNA. She is still febril and requiring Oxygen -Continue cortisteroid (Dexamethasone) -continue Oxygen -ID cosult to see if need any additional treatment. -Continue Levaquin for possible superimpose bacterial pneumonia. Not sure about indication for Flagyl so will d/c 2. Acute Alcoholic Pancratitis--CT no stone. Seen by surgery, no surgical issue -NPO since having more pain, reapeat lipase, Dilaudid for pain, IVF 3. Alcohol withdrawal--Phenobarbital protocol, thiamine folate, CARE team consult before discharge 4. Opioid dependence--Continue Methadone
[2020-10-26] MEDS: Dextrose 5 % and 0.45 % NaCl 1,000 ML 100 ML IVCONT ×2 (09:52→18:30)
--- NOTE | 2020-10-26 12:42 | MHC.CM.PN ---
pt lives c addi lindsay in their apt. she reports she is independent in her care. she denies the need for vna at in. she will most likely need help c a ride home at in- [facility] [place] [facility]. in plan is home no svcs. cm to cont. to follow.
--- NOTE | 2020-10-26 16:03 | P.CNID_ITS ---
History of Present Illness Data of Consult Service Date: 10/26/20 Requesting physician: [facility] Primary Care Provider: Unknown Physician HPI Reason for consult: COVID,pancreatitis She presents to hospital with abdominal discomfort 05/08 and found to have pancreatitis. She has also been drinking quite a bit of alcohol. She has also been short of breath and diagnosed with COVID on 10/19 She is on 4 liters oxygen Review of Systems Constitutional: Constitutional: Denies headache(s) ENT: Denies dizziness and Denies headache(s) Musculoskeletal: Musculoskeletal: Denies numbness Neurologic: Denies confusion, Denies dizziness, Denies headache(s) and Denies numbness Psychiatric: Psychiatric: Denies confusion PMFSH Past Medical History Medical History Asthma GERD (gastroesophageal reflux disease) Hypertension SVT (supraventricular tachycardia) Family History Family history: reviewed and not pertinent Social History Social History Household Members: Family Housing: Apartment Do you presently have visiting nurse or other home services: No Alcohol intake: current Alcohol intake frequency: 3 or more drinks per day Alcohol type: beer Smoking Status: Current every day smoker Tobacco Type: Cigarette Smoked in Last 30 Days: Yes Patient Interested in Nicotine Replacement: Yes Patient Given Instructions on How to Stop Smoking: No Second Hand Smoke Exposure: No Use of substances other than those prescribed or required for medical reasons: No Have you been hit, kicked, punched, or otherwise hurt by someone within the past year? If so, by whom?: No Do you feel safe in your current relationship?: No Is there a partner from a previous relationship who is making you feel unsafe now?: No Are you made to feel afraid or neglected: No Advance Directives: No Advance Directives Information Provided: No Do you have thoughts of harming others: None Do you have a plan to hurt others: No Plan Recently lost weight without trying: No service: No Current occupational status: unemployed Meds Allergies Allergy/AdvReac Type Severity Reaction Status Date / Time No Known Allergies Allergy Verified 10/23/20 22:37 Home Medications Medication Instructions Recorded Confirmed Type metoprolol tartrate 100 mg PO BID 10/23/20 10/23/20 History methadone 91 mg PO DAILY 10/25/20 10/25/20 History Physical Exam Vital Signs: Vital Signs: Last Vital Signs Temp 97.2 F 10/26/20 15:46 Pulse 62 10/26/20 15:46 Resp 18 10/26/20 15:46 BP 161/92 H 10/26/20 15:46 Pulse Ox 95 10/26/20 15:46 Body Mass Index 36.6 Const: General: cooperative; No confusion Orientation/consciousness: oriented to person, oriented to place, oriented to time and No confusion HENMT: Head: Yes normal to inspection Mouth: Normal oral and palatal mucosa present Resp: Effort & Inspection: normal respiratory effort Cardio: Rate: regular rate Rhythm: regular rhythm GI: Palpation (GI): Soft to palpation and Tenderness to palpation present (GI) : General: Yes no CVA tenderness Back/Spine/Pelvis: Back: no CVA tenderness Skin: General skin exam: no rashes or lesions noted Neuro: General: oriented to person, oriented to place, oriented to time and No confusion Assessment and Plan (1) COVID-19: Problem details: She has some oxygen requirement but LFTs elevated Recheck No Remdesivir at this time Status: Acute (2) Hypoxia: Status: Acute (3) Alcohol withdrawal: Qualifiers: Complication of substance-induced condition: uncomplicated Qualified Code(s): F10.230 - Alcohol dependence with withdrawal, uncomplicated Status: Acute (4) Acute pancreatitis: Qualifiers: Acute pancreatitis complication: unspecified Pancreatitis type: alcohol induced Qualified Code(s): K85.20 - Alcohol induced acute pancreatitis without necrosis or infection Problem details: Can stop Levaquin and Flagyl after 5 days cover pancreatitis Status: Acute Results Labs CBC & Chem 7: 10/25/20 04:53 10/25/20 04:53 Labs: Short CBC 10/23/20 10/23/20 10/23/20 Range/Units 20:39 21:30 22:04 ALT Cancelled 118 H 122 H Microbiology Microbiology Results: Microbiology 10/23/20 22:04 Blood - Venous Blood Culture - Preliminary No growth after 48 hours. 10/23/20 22:04 Blood - Venous Blood Culture - Preliminary No growth after 48 hours.
[2020-10-26] MEDS: HYDROmorphone HCl 1 MG/ML SYRINGE IVPUSH ×2 (17:34→21:22)
[2020-10-26 17:51] LABS: Alanine Aminotransferase 76 U/L (0-31); Albumin Level 3.4 g/dL (3.5-5.0); Alkaline Phosphatase 118 U/L (39-117); Aspartate Amino Transferase 114 U/L (5-31); Bilirubin Direct 1.8 mg/dL (0.0-0.5); Bilirubin Total 2.5 mg/dL (0.0-1.0); Total Protein 6.1 g/dL (6.5-8.0)
[2020-10-26] MEDS: Enoxaparin Sodium 40 MG/0.4 ML SYRINGE SUBCUT (20:00)
[2020-10-26] MEDS: levoFLOXacin/D5W 750 MG/150 ML PIGGYBACK 100 MG IV (20:01)
[2020-10-26] MEDS: PHENobarbitaL 15 MG TABLET PO (20:01)
[2020-10-26] MEDS: 0.9 % Sodium Chloride Flush 3 ML SYRINGE IVFLUSH (20:01)
[2020-10-27] VITALS (8 sets, daily range): BP systolic 128–171; BP diastolic 84–94; PULSE 57–89; RESP 18–20; TEMP 36.3–36.6; O2SAT 94–98
[2020-10-27] MEDS: HYDROmorphone HCl 1 MG/ML SYRINGE IVPUSH ×5 (01:29→21:32)
[2020-10-27] MEDS: Acetaminophen 325 MG TABLET 650 MG PO ×2 (01:29→16:52)
--- NOTE | 2020-10-27 04:00 | PC.NURSE ---
Pt c/o of new hearing loss with ambulation that resolves shortly after resting. SpO2 86% on 4 L nasal cannula after ambulation, recovers quickly to >90%No other complaints, vss. MD made aware. Educated pt to use O2 when ambulating and to ask for assistance if needed. Extension tubing provided for O2.
[2020-10-27] MEDS: Dextrose 5 % and 0.45 % NaCl 1,000 ML 100 ML IVCONT ×2 (05:45→08:02)
[2020-10-27] MEDS: Omeprazole 20 MG CAPSULE.DR PO (05:45)
[2020-10-27] MEDS: dexAMETHasone sod phosphate 4 MG/ML VIAL 6 MG IVPUSH (07:57)
[2020-10-27] MEDS: Folic Acid 1 MG TABLET PO (07:58)
[2020-10-27] MEDS: Metoprolol Tartrate 100 MG TABLET PO ×2 (07:58→20:06)
[2020-10-27] MEDS: PHENobarbitaL 15 MG TABLET PO ×2 (07:58→20:06)
[2020-10-27] MEDS: Thiamine HCL 100 MG TABLET PO (07:58)
[2020-10-27] MEDS: 0.9 % Sodium Chloride Flush 3 ML SYRINGE IVFLUSH ×2 (07:59→23:32)
[2020-10-27 10:43] LABS: Alanine Aminotransferase 59 U/L (0-31); Albumin Level 3.3 g/dL (3.5-5.0); Alkaline Phosphatase 104 U/L (39-117); Aspartate Amino Transferase 82 U/L (5-31); Bilirubin Direct 1.7 mg/dL (0.0-0.5); Bilirubin Total 2.3 mg/dL (0.0-1.0); Total Protein 6.1 g/dL (6.5-8.0)
[2020-10-27] MEDS: Lactated Ringers 1,000 ML 80 ML IVCONT (11:27)
[2020-10-27] MEDS: Lactated Ringers 1,000 ML 100 ML IVCONT (11:27)
[2020-10-27] MEDS: metroNIDAZOLE/NS 500 MG/100 ML PIGGYBACK 100 MG IV ×2 (13:44→20:06)
--- NOTE | 2020-10-27 13:57 | HO.PM.IMPN ---
Subjective Subjective Date of Service: 10/27/20 Interval History: acute alcoholic pancreatitis, covid PNA and alcohol withdrawal. Review of Systems Still abdominal pain , no chest pain or sob. Physical Exam Vital Signs: Vital Signs: Last Vital Signs Temp 97.4 F 10/27/20 12:00 Pulse 69 10/27/20 12:00 Resp 18 10/27/20 12:00 BP 128/92 H 10/27/20 12:00 Pulse Ox 98 10/27/20 12:00 Body Mass Index 36.6 Physical exam: Consideration: Still has abdominal. Cvs: rrr, [id number] , no murmur res: fair air netry, no rales or wheezing abd: still has epigastric discomfort , soft , nondistended, no rebound or guarding. ext pulses present , no cyanosis neuro: axo3 , nonfocal. Objective Data Current Medications Generic Name Dose Route Start Last Admin Trade Name Freq PRN Reason Stop Dose Admin Acetaminophen 650 mg 10/24/20 20:39 10/27/20 01:29 Acetaminophen 325 Mg Tablet PO 650 mg Q6H PRN Administration Pain, Mild (Pain Scale 1-3) Albuterol Sulfate 2 puff 10/24/20 20:39 Albuterol Sulfate 90 Mcg 8 Gm Inhaler INHALE QID PRN shortness of breath or wheezing Dexamethasone Sodium Phosphate 6 mg 10/24/20 20:39 10/27/20 07:57 Dexamethasone Sod Phosphate 4 Mg/Ml Vial IVPUSH 6 mg DAILY JFEF Administration Docusate Sodium 100 mg 10/24/20 20:39 Docusate Sodium 100 Mg Capsule PO DAILY PRN Constipation Enoxaparin Sodium 40 mg 10/24/20 21:00 10/26/20 20:00 Enoxaparin Sodium 40 Mg/0.4 Ml Syringe SUBCUT 40 mg Q24H JEFF Administration Folic Acid 1 mg 10/24/20 20:39 10/27/20 07:58 Folic Acid 1 Mg Tablet PO 1 mg DAILY JEFF Administration Hydromorphone HCl 1 mg 10/26/20 09:03 10/27/20 11:27 Hydromorphone Hcl 1 Mg/Ml Syringe IVPUSH 1 mg Q4H PRN Administration Pain, Severe (Pain Scale 7-10) Metronidazole 500 mg in 100 mls @ 100 mls/hr 10/24/20 20:39 10/27/20 13:44 Flagyl IV 100 mls/hr Q8H JEFF Administration Levofloxacin 750 mg in 150 mls @ 100 mls/hr 10/24/20 21:00 10/26/20 21:27 Levaquin IV Infused Q24H JEFF Infusion Lactated Ringer's 1,000 mls @ 100 mls/hr 10/27/20 09:45 10/27/20 11:27 Lr IVCONT 100 mls/hr .Q10H JEFF Administration Medication 1 each 10/24/20 09:00 No Benzodiazepines MISCELLANE DAILY JEFF Methadone HCl 90 mg 10/25/20 14:30 10/27/20 07:58 Methadone Hcl 1 Mg/0.1 Ml Oral.Conc PO 90 mg DAILY JEFF Administration Metoprolol Tartrate 100 mg 10/24/20 21:00 10/27/20 07:58 Metoprolol Tartrate 100 Mg Tablet PO 100 mg BID JEFF Administration Omeprazole 20 mg 10/25/20 06:30 10/27/20 05:45 Omeprazole 20 Mg Capsule.Dr PO 20 mg DAILY@0630 [facility] Administration Ondansetron HCl 4 mg 10/24/20 20:39 Ondansetron Hcl 4 Mg/2 Ml Vial IVPUSH Q8H PRN Nausea and Vomiting Pharmacy Consult 1 each 10/23/20 22:39 Consult Rx Perform Med Rec MISCELLANE ONCE PRN Consult order Phenobarbital 15 mg 10/26/20 21:00 10/27/20 07:58 Phenobarbital 15 Mg Tablet PO 10/28/20 09:01 15 mg BID JEFF Administration Phenobarbital 15 mg 10/28/20 21:00 Phenobarbital 15 Mg Tablet PO 10/29/20 21:01 BEDTIME [facility] Sodium Chloride 3 ml 10/24/20 20:39 10/27/20 07:59 0.9 % Sodium Chloride Flush 3 Ml Syringe IVFLUSH 3 ml QSHIFT JEFF Administration Thiamine HCl 100 mg 10/24/20 20:39 10/27/20 07:58 Thiamine Hcl 100 Mg Tablet PO 100 mg DAILY JEFF Administration Labs CBC & Chem 7: 10/25/20 04:53 10/25/20 04:53 Microbiology Microbiology Results: Microbiology 10/23/20 22:04 Blood - Venous Blood Culture - Preliminary No growth after 48 hours. 10/23/20 22:04 Blood - Venous Blood Culture - Preliminary No growth after 48 hours. Assessment and Plan (1) COVID-19: Problem details: She has some oxygen requirement but LFTs elevated Recheck No Remdesivir at this time Status: Acute (2) Hypoxia: Status: Acute (3) Acute pancreatitis: Problem details: Can stop Levaquin and Flagyl after 5 days cover pancreatitis Status: Acute (4) Alcohol withdrawal: Status: Acute Assessment and Plan: (H and P not yet available) 39-year-old female with past medical history opioid dependence on Methadone, recent diagnosis of COVID on 10/19/2020 and sent home with Prednisone and Azithromycin, history of alcoholisms, hypertension. She presented with worsening shortness of breath and diffuse abdominal pain. CT of abdomen showed acute pancreatitis and Lipase level was over 1000 and concern of alcohol withdrawal as well, and hypoxia from covid. 1. Acute hypoxic respiratory failure from covid 19 PNA. She is still febril and requiring Oxygen Continue cortisteroid (Dexamethasone), levaquin , continue oxygen ID conn -continue levaquin and flagyl? pancreatitis conn Id fu 2. Acute Alcoholic Pancratitis--CT no stone. Seen by surgery, no surgical issue -NPO since having more pain, repeat lipase, Dilaudid for pain, IVF 3. Alcohol withdrawal--Phenobarbital protocol, thiamine folate, CARE team consult before discharge 4. Opioid dependence--Continue Methadone
[2020-10-27] MEDS: Enoxaparin Sodium 40 MG/0.4 ML SYRINGE SUBCUT (20:05)
[2020-10-27] MEDS: levoFLOXacin/D5W 750 MG/150 ML PIGGYBACK 100 MG IV (21:32)
[2020-10-28] MEDS: HYDROmorphone HCl 1 MG/ML SYRINGE IVPUSH ×4 (01:27→20:29)
[2020-10-28] MEDS: Acetaminophen 325 MG TABLET 650 MG PO (01:28)
[2020-10-28] MEDS: Lactated Ringers 1,000 ML 100 ML IVCONT (01:35)
[2020-10-28 03:28] VITALS: BP 155/75; PULSE 57; RESP 17; TEMP 36.7; O2SAT 93
[2020-10-28] MEDS: metroNIDAZOLE/NS 500 MG/100 ML PIGGYBACK 100 MG IV ×3 (05:35→20:28)
[2020-10-28] MEDS: Omeprazole 20 MG CAPSULE.DR PO (05:35)
[2020-10-28] MEDS: Butalb/Acetamin/Caff 50/325/40 TABLET 1 TAB PO (06:42)
[2020-10-28 07:49] VITALS: BP 139/98; PULSE 77; RESP 16; TEMP 36.6; O2SAT 97
[2020-10-28 08:28] LABS: Anion Gap 17 (12-20); Blood Urea Nitrogen 7 mg/dL (9-16); Calcium 7.9 mg/dL (8.4-10.2); Carbon Dioxide 22 mmol/L (22-29); Chloride 102 mmol/L (96-108); Creatinine Clr Calc Pharmacy 136.5; Estimated Glomerular Filt Rate > 60; Glucose Random 68 mg/dL (60-115); Potassium 3.1 mmol/l (3.3-5.1); Sodium 138 mmol/L (135-145)
[2020-10-28 08:35] LABS: Alanine Aminotransferase 50 U/L (0-31); Albumin Level 3.3 g/dL (3.5-5.0); Alkaline Phosphatase 101 U/L (39-117); Aspartate Amino Transferase 68 U/L (5-31); Bilirubin Total 1.9 mg/dL (0.0-1.0); Total Protein 6.4 g/dL (6.5-8.0)
[2020-10-28] MEDS: PHENobarbitaL 15 MG TABLET PO ×2 (09:41→20:29)
[2020-10-28] MEDS: Metoprolol Tartrate 100 MG TABLET PO ×2 (09:41→20:29)
[2020-10-28] MEDS: Thiamine HCL 100 MG TABLET PO (09:41)
[2020-10-28] MEDS: Folic Acid 1 MG TABLET PO (09:41)
[2020-10-28] MEDS: dexAMETHasone sod phosphate 4 MG/ML VIAL 6 MG IVPUSH (09:41)
[2020-10-28] MEDS: 0.9 % Sodium Chloride Flush 3 ML SYRINGE IVFLUSH ×2 (09:41→20:30)
--- NOTE | 2020-10-28 11:28 | HO.PM.IMPN ---
Subjective Subjective Date of Service: 10/28/20 Interval History: acute alcoholic pancreatitis, covid PNA and alcohol withdrawal. Review of Systems Patient says shortness of breath slightly better, still has abdominal pain above. Physical Exam Vital Signs: Vital Signs: Last Vital Signs Temp 97.8 F 10/28/20 07:49 Pulse 77 10/28/20 07:49 Resp 16 10/28/20 07:49 BP 139/98 H 10/28/20 07:49 Pulse Ox 97 10/28/20 07:49 Body Mass Index 36.6 Physical exam: Constitutional: Not in acute distress Cvs: rrr, [id number] , no murmur res: Fair air entry, no rales or wheezing abd: no rebound or guarding ,had abd discomfort epigastric area, bs present. ext pulses present , no cyanosis neuro: axo3 , nonfocal. Objective Data Current Medications Generic Name Dose Route Start Last Admin Trade Name Freq PRN Reason Stop Dose Admin Acetaminophen 650 mg 10/24/20 20:39 10/28/20 01:28 Acetaminophen 325 Mg Tablet PO 650 mg Q6H PRN Administration Pain, Mild (Pain Scale 1-3) Albuterol Sulfate 2 puff 10/24/20 20:39 Albuterol Sulfate 90 Mcg 8 Gm Inhaler INHALE QID PRN shortness of breath or wheezing Dexamethasone Sodium Phosphate 6 mg 10/24/20 20:39 10/28/20 09:41 Dexamethasone Sod Phosphate 4 Mg/Ml Vial IVPUSH 6 mg DAILY JEFF Administration Docusate Sodium 100 mg 10/24/20 20:39 Docusate Sodium 100 Mg Capsule PO DAILY PRN Constipation Enoxaparin Sodium 40 mg 10/24/20 21:00 10/27/20 20:05 Enoxaparin Sodium 40 Mg/0.4 Ml Syringe SUBCUT 40 mg Q24H JEFF Administration Folic Acid 1 mg 10/24/20 20:39 10/28/20 09:41 Folic Acid 1 Mg Tablet PO 1 mg DAILY JEFF Administration Hydromorphone HCl 1 mg 10/26/20 09:03 10/28/20 09:46 Hydromorphone Hcl 1 Mg/Ml Syringe IVPUSH 1 mg Q4H PRN Administration Pain, Severe (Pain Scale 7-10) Metronidazole 500 mg in 100 mls @ 100 mls/hr 10/24/20 20:39 10/28/20 06:52 Flagyl IV Infused Q8H JEFF Infusion Levofloxacin 750 mg in 150 mls @ 100 mls/hr 10/24/20 21:00 10/27/20 23:16 Levaquin IV Infused Q24H JEFF Infusion Lactated Ringer's 1,000 mls @ 100 mls/hr 10/27/20 09:45 10/28/20 01:35 Lr IVCONT Infused .Q10H JEFF Infusion Medication 1 each 10/24/20 09:00 No Benzodiazepines MISCELLANE DAILY JEFF Methadone HCl 90 mg 10/25/20 14:30 10/28/20 09:41 Methadone Hcl 1 Mg/0.1 Ml Oral.Conc PO 90 mg DAILY JEFF Administration Metoprolol Tartrate 100 mg 10/24/20 21:00 10/28/20 09:41 Metoprolol Tartrate 100 Mg Tablet PO 100 mg BID JEFF Administration Omeprazole 20 mg 10/25/20 06:30 10/28/20 05:35 Omeprazole 20 Mg Capsule.Dr PO 20 mg DAILY@0630 JEFF Administration Ondansetron HCl 4 mg 10/24/20 20:39 Ondansetron Hcl 4 Mg/2 Ml Vial IVPUSH Q8H PRN Nausea and Vomiting Pharmacy Consult 1 each 10/23/20 22:39 Consult Rx Perform Med Rec MISCELLANE ONCE PRN Consult order Phenobarbital 15 mg 10/28/20 21:00 Phenobarbital 15 Mg Tablet PO 10/29/20 21:01 BEDTIME JEFF Sodium Chloride 3 ml 10/24/20 20:39 10/28/20 09:41 0.9 % Sodium Chloride Flush 3 Ml Syringe IVFLUSH 3 ml QSHIFT JEFF Administration Thiamine HCl 100 mg 10/24/20 20:39 10/28/20 09:41 Thiamine Hcl 100 Mg Tablet PO 100 mg DAILY JEFF Administration Labs CBC & Chem 7: 10/25/20 04:53 10/28/20 07:05 Microbiology Microbiology Results: Microbiology 10/23/20 22:04 Blood - Venous Blood Culture - Preliminary No growth after 48 hours. 10/23/20 22:04 Blood - Venous Blood Culture - Preliminary No growth after 48 hours. Assessment and Plan (1) COVID-19: Problem details: She has some oxygen requirement but LFTs elevated Recheck No Remdesivir at this time Status: Acute (2) Hypoxia: Status: Acute (3) Alcohol withdrawal: Status: Acute (4) Acute pancreatitis: Problem details: Can stop Levaquin and Flagyl after 5 days cover pancreatitis Status: Acute Assessment and Plan: 39-year-old female with past medical history opioid dependence on Methadone, recent diagnosis of COVID on 10/19/2020 and sent home with Prednisone and Azithromycin, history of alcoholisms, hypertension. She presented with worsening shortness of breath and diffuse abdominal pain. CT of abdomen showed acute pancreatitis and Lipase level was over 1000 and concern of alcohol withdrawal as well, and hypoxia from covid. 1. Acute hypoxic respiratory failure from covid 19 PNA. She is still febril and requiring Oxygen Continue cortisteroid (Dexamethasone), levaquin , continue oxygen ID conn -continue levaquin andwill dc flagyl -no clear indiaction. Id fu 2. Acute Alcoholic Pancratitis--CT no stone. Seen by surgery, no surgical issue clear liquid diet , repeat lipase, Dilaudid for pain, IVF 3. Alcohol withdrawal--Phenobarbital protocol, thiamine folate, CARE team consult before discharge 4. Opioid dependence--Continue Methadone
[2020-10-28 12:00] VITALS: BP 113/78; PULSE 71; RESP 20; TEMP 35.8; O2SAT 94
[2020-10-28 15:19] VITALS: BP 114/76; PULSE 69; RESP 16; TEMP 36.7; O2SAT 94
[2020-10-28 20:00] VITALS: BP 149/89; PULSE 64; RESP 20; TEMP 36.8; O2SAT 93
[2020-10-28] MEDS: levoFLOXacin/D5W 750 MG/150 ML PIGGYBACK 100 MG IV (20:29)
[2020-10-28] MEDS: Enoxaparin Sodium 40 MG/0.4 ML SYRINGE SUBCUT (20:29)
[2020-10-29] VITALS (8 sets, daily range): BP systolic 119–149; BP diastolic 58–90; PULSE 66–77; RESP 16–20; TEMP 36–37.1; O2SAT 93–99
[2020-10-29] MEDS: HYDROmorphone HCl 1 MG/ML SYRINGE IVPUSH ×5 (02:27→19:48)
[2020-10-29] MEDS: Lactated Ringers 1,000 ML 100 ML IVCONT (04:26)
[2020-10-29] MEDS: metroNIDAZOLE/NS 500 MG/100 ML PIGGYBACK 100 MG IV (05:12)
[2020-10-29] MEDS: Omeprazole 20 MG CAPSULE.DR PO (05:13)
[2020-10-29 07:19] LABS: Anion Gap 17 (12-20); Blood Urea Nitrogen 8 mg/dL (9-16); Calcium 7.9 mg/dL (8.4-10.2); Carbon Dioxide 21 mmol/L (22-29); Chloride 103 mmol/L (96-108); Creatinine Clr Calc Pharmacy 138.6; Estimated Glomerular Filt Rate > 60; Glucose Random 98 mg/dL (60-115); Potassium 2.6 mmol/l (3.3-5.1); Sodium 138 mmol/L (135-145)
[2020-10-29] MEDS: Folic Acid 1 MG TABLET PO (09:23)
[2020-10-29] MEDS: Potassium Chloride/H20 10 MEQ/100 ML PIGGYBACK 100 MEQ IV ×4 (09:23→15:22)
[2020-10-29] MEDS: Metoprolol Tartrate 100 MG TABLET PO ×2 (09:23→20:41)
[2020-10-29] MEDS: Thiamine HCL 100 MG TABLET PO (09:23)
[2020-10-29] MEDS: Potassium Chloride Packet 20 MEQ PACKET 40 MEQ PO ×2 (09:23→19:36)
[2020-10-29] MEDS: dexAMETHasone sod phosphate 4 MG/ML VIAL 6 MG IVPUSH (09:24)
--- NOTE | 2020-10-29 09:42 | MHC.CM.PN ---
dc plan remains the same at this time, for patient to return home c room s any svcs. c to help c transportation at dc. cm to cont. to follow.
--- NOTE | 2020-10-29 11:12 | HO.PM.IMPN ---
Subjective Subjective Date of Service: 10/29/20 Interval History: Acute pancreatitis so, COVID pneumonia. Review of Systems Shortness of breath slowly improving, also tolerating some clear liquids today Says her abdominal pain is also getting slowly better. Denies any cough or phlegm. Physical Exam Vital Signs: Vital Signs: Last Vital Signs Temp 96.8 F 10/29/20 07:58 Pulse 77 10/29/20 09:23 Resp 17 10/29/20 07:58 BP 131/58 L 10/29/20 09:23 Pulse Ox 97 10/29/20 07:58 Body Mass Index 36.6 Physical exam: Constitutional: Not in distress. Cvs: rrr, [id number] , no murmur res: Fair air entry, no rales or wheezing. abd: no rebound or guarding ,nt, bs present. ext pulses present , no cyanosis neuro: axo3 , nonfocal. Objective Data Current Medications Generic Name Dose Route Start Last Admin Trade Name Freq PRN Reason Stop Dose Admin Acetaminophen 650 mg 10/24/20 20:39 10/28/20 01:28 Acetaminophen 325 Mg Tablet PO 650 mg Q6H PRN Administration Pain, Mild (Pain Scale 1-3) Albuterol Sulfate 2 puff 10/24/20 20:39 Albuterol Sulfate 90 Mcg 8 Gm Inhaler INHALE QID PRN shortness of breath or wheezing Dexamethasone Sodium Phosphate 6 mg 10/24/20 20:39 10/29/20 09:24 Dexamethasone Sod Phosphate 4 Mg/Ml Vial IVPUSH 6 mg DAILY JEFF Administration Docusate Sodium 100 mg 10/24/20 20:39 Docusate Sodium 100 Mg Capsule PO DAILY PRN Constipation Enoxaparin Sodium 40 mg 10/24/20 21:00 10/28/20 20:29 Enoxaparin Sodium 40 Mg/0.4 Ml Syringe SUBCUT 40 mg Q24H JEFF Administration Folic Acid 1 mg 10/24/20 20:39 10/29/20 09:23 Folic Acid 1 Mg Tablet PO 1 mg DAILY JEFF Administration Hydromorphone HCl 1 mg 10/26/20 09:03 10/29/20 10:44 Hydromorphone Hcl 1 Mg/Ml Syringe IVPUSH 1 mg Q4H PRN Administration Pain, Severe (Pain Scale 7-10) Metronidazole 500 mg in 100 mls @ 100 mls/hr 10/24/20 20:39 10/29/20 06:15 Flagyl IV Infused Q8H JEFF Infusion Levofloxacin 750 mg in 150 mls @ 100 mls/hr 10/24/20 21:00 10/28/20 22:19 Levaquin IV Infused Q24H JEFF Infusion Lactated Ringer's 1,000 mls @ 100 mls/hr 10/27/20 09:45 10/29/20 04:26 Lr IVCONT 100 mls/hr .Q10H JEFF Administration Potassium Chloride 10 meq in 100 mls @ 100 mls/hr 10/29/20 08:00 10/29/20 09:23 IV 10/29/20 11:59 100 mls/hr Q1H JEFF Administration Medication 1 each 10/24/20 09:00 No Benzodiazepines MISCELLANE DAILY JEFF Methadone HCl 90 mg 10/25/20 14:30 10/29/20 09:23 Methadone Hcl 1 Mg/0.1 Ml Oral.Conc PO 90 mg DAILY JEFF Administration Metoprolol Tartrate 100 mg 10/24/20 21:00 10/29/20 09:23 Metoprolol Tartrate 100 Mg Tablet PO 100 mg BID JEFF Administration Omeprazole 20 mg 10/25/20 06:30 10/29/20 05:13 Omeprazole 20 Mg Capsule.Dr PO 20 mg DAILY@0630 [facility] Administration Ondansetron HCl 4 mg 10/24/20 20:39 Ondansetron Hcl 4 Mg/2 Ml Vial IVPUSH Q8H PRN Nausea and Vomiting Pharmacy Consult 1 each 10/23/20 22:39 Consult Rx Perform Med Rec MISCELLANE ONCE PRN Consult order Phenobarbital 15 mg 10/28/20 21:00 10/28/20 20:29 Phenobarbital 15 Mg Tablet PO 10/29/20 21:01 15 mg BEDTIME JEFF Administration Sodium Chloride 3 ml 10/24/20 20:39 10/29/20 09:23 0.9 % Sodium Chloride Flush 3 Ml Syringe IVFLUSH Not Given QSHIFT JEFF Thiamine HCl 100 mg 10/24/20 20:39 10/29/20 09:23 Thiamine Hcl 100 Mg Tablet PO 100 mg DAILY JEFF Administration Labs CBC & Chem 7: 10/25/20 04:53 10/29/20 06:16 Microbiology Microbiology Results: Microbiology 10/23/20 22:04 Blood - Venous Blood Culture - Final No growth after 5 days. 10/23/20 22:04 Blood - Venous Blood Culture - Final No growth after 5 days. Assessment and Plan (1) COVID-19: Problem details: She has some oxygen requirement but LFTs elevated Recheck No Remdesivir at this time Status: Acute (2) Hypoxia: Status: Acute (3) Acute pancreatitis: Problem details: Can stop Levaquin and Flagyl after 5 days cover pancreatitis Status: Acute (4) Alcohol withdrawal: Status: Acute Assessment and Plan: 39-year-old female with past medical history opioid dependence on Methadone, recent diagnosis of COVID on 10/19/2020 and sent home with Prednisone and Azithromycin, history of alcoholisms, hypertension. She presented with worsening shortness of breath and diffuse abdominal pain. CT of abdomen showed acute pancreatitis and Lipase level was over 1000 and concern of alcohol withdrawal as well, and hypoxia from covid. 1. Acute hypoxic respiratory failure from covid 19 PNA. She is still febril and requiring Oxygen Continue cortisteroid (Dexamethasone), levaquin , continue oxygen ID conn -continue levaquin 2. Acute Alcoholic Pancratitis--CT no stone. Seen by surgery, no surgical issue full liquid diet , repeat lipase, Dilaudid for pain. 3. Alcohol withdrawal--Phenobarbital protocol, thiamine folate, CARE team consult before discharge 4. Opioid dependence--Continue Methadone
--- NOTE | 2020-10-29 17:53 | PC.NURSE ---
Pt c/o pain in back/ abd throughout day, iv dilaudid given per emar. Pt ambulating in room by self, rings as needed. 40MEQ of IV k+ given, burned slightly, ice packs given with relief. Pt titrated to 1L NC , o2 97%, pt placed on RA, tolerating well. Pt had no c/o of sob.
[2020-10-29] MEDS: Magnesium Sulfate/D5W 1 GM/100 ML PIGGYBACK IV (19:36)
[2020-10-29] MEDS: levoFLOXacin/D5W 750 MG/150 ML PIGGYBACK 100 MG IV (20:41)
[2020-10-29] MEDS: 0.9 % Sodium Chloride Flush 3 ML SYRINGE IVFLUSH (20:41)
[2020-10-29] MEDS: Enoxaparin Sodium 40 MG/0.4 ML SYRINGE SUBCUT (20:41)
[2020-10-29] MEDS: PHENobarbitaL 15 MG TABLET PO (20:41)
[2020-10-29 22:10] LABS: Magnesium 2.1 mg/dL (1.6-2.6); Potassium 3.6 mmol/l (3.3-5.1)
[2020-10-29] MEDS: Acetaminophen 325 MG TABLET 650 MG PO (23:02)
[2020-10-30] VITALS (8 sets, daily range): BP systolic 114–134; BP diastolic 53–91; PULSE 71–93; RESP 12–19; TEMP 36.7–37.3; O2SAT 94–98
[2020-10-30] MEDS: HYDROmorphone HCl 1 MG/ML SYRINGE IVPUSH ×4 (00:57→22:37)
[2020-10-30] MEDS: Acetaminophen 325 MG TABLET 650 MG PO (05:12)
[2020-10-30] MEDS: Omeprazole 20 MG CAPSULE.DR PO (05:13)
[2020-10-30 08:38] LABS: Anion Gap 16 (12-20); Blood Urea Nitrogen 4 mg/dL (9-16); Calcium 7.9 mg/dL (8.4-10.2); Carbon Dioxide 21 mmol/L (22-29); Chloride 106 mmol/L (96-108); Creatinine Clr Calc Pharmacy 145.4; Estimated Glomerular Filt Rate > 60; Glucose Random 88 mg/dL (60-115); Magnesium 1.9 mg/dL (1.6-2.6); Potassium 2.8 mmol/l (3.3-5.1); Sodium 140 mmol/L (135-145)
--- NOTE | 2020-10-30 09:24 | HO.PM.IMPN ---
Subjective Subjective Date of Service: 10/30/20 Interval History: Hypokalemia , acute pancreatitis , covid Review of Systems abd pain seems improving , still feels weak , denies chest pain or fever or chills Physical Exam Vital Signs: Vital Signs: Last Vital Signs Temp 98.0 F 10/30/20 08:00 Pulse 93 10/30/20 08:00 Resp 17 10/30/20 08:00 BP 117/53 L 10/30/20 08:00 Pulse Ox 95 10/30/20 08:00 Body Mass Index 36.6 Physical exam: Constitutional: Not in distress. Cvs: rrr, [id number] , no murmur res: Fair air entry, no rales or wheezing. abd: no rebound or guarding ,nt, bs present. ext pulses present , no cyanosis neuro: axo3 , nonfocal. Objective Data Current Medications Generic Name Dose Route Start Last Admin Trade Name Freq PRN Reason Stop Dose Admin Acetaminophen 650 mg 10/24/20 20:39 10/30/20 05:12 Acetaminophen 325 Mg Tablet PO 650 mg Q6H PRN Administration Pain, Mild (Pain Scale 1-3) Albuterol Sulfate 2 puff 10/24/20 20:39 Albuterol Sulfate 90 Mcg 8 Gm Inhaler INHALE QID PRN shortness of breath or wheezing Dexamethasone Sodium Phosphate 6 mg 10/24/20 20:39 10/29/20 09:24 Dexamethasone Sod Phosphate 4 Mg/Ml Vial IVPUSH 6 mg DAILY JEFF Administration Docusate Sodium 100 mg 10/24/20 20:39 Docusate Sodium 100 Mg Capsule PO DAILY PRN Constipation Enoxaparin Sodium 40 mg 10/24/20 21:00 10/29/20 20:41 Enoxaparin Sodium 40 Mg/0.4 Ml Syringe SUBCUT 40 mg Q24H JEFF Administration Folic Acid 1 mg 10/24/20 20:39 10/29/20 09:23 Folic Acid 1 Mg Tablet PO 1 mg DAILY JEFF Administration Hydromorphone HCl 1 mg 10/26/20 09:03 10/30/20 05:13 Hydromorphone Hcl 1 Mg/Ml Syringe IVPUSH 1 mg Q4H PRN Administration Pain, Severe (Pain Scale 7-10) Levofloxacin 750 mg in 150 mls @ 100 mls/hr 10/24/20 21:00 10/29/20 22:47 Levaquin IV Infused Q24H JEFF Infusion Potassium Chloride 10 meq in 100 mls @ 100 mls/hr 10/30/20 09:15 IV 10/30/20 11:14 Q1H JEFF Magnesium Sulfate/Dextrose 1 gm in 100 mls @ 100 mls/hr 10/30/20 09:09 IV 10/30/20 10:08 ONCE ONE Medication 1 each 10/24/20 09:00 No Benzodiazepines MISCELLANE DAILY JEFF Methadone HCl 90 mg 10/25/20 14:30 10/29/20 09:23 Methadone Hcl 1 Mg/0.1 Ml Oral.Conc PO 90 mg DAILY JEFF Administration Metoprolol Tartrate 100 mg 10/24/20 21:00 10/29/20 20:41 Metoprolol Tartrate 100 Mg Tablet PO 100 mg BID JEFF Administration Omeprazole 20 mg 10/25/20 06:30 10/30/20 05:13 Omeprazole 20 Mg Capsule.Dr PO 20 mg DAILY@0630 JEFF Administration Ondansetron HCl 4 mg 10/24/20 20:39 Ondansetron Hcl 4 Mg/2 Ml Vial IVPUSH Q8H PRN Nausea and Vomiting Pharmacy Consult 1 each 10/23/20 22:39 Consult Rx Perform Med Rec MISCELLANE ONCE PRN Consult order Sodium Chloride 3 ml 10/24/20 20:39 10/29/20 20:41 0.9 % Sodium Chloride Flush 3 Ml Syringe IVFLUSH 3 ml QSHIFT JEFF Administration Thiamine HCl 100 mg 10/24/20 20:39 10/29/20 09:23 Thiamine Hcl 100 Mg Tablet PO 100 mg DAILY JEFF Administration Labs CBC & Chem 7: 10/25/20 04:53 10/30/20 07:11 Microbiology Microbiology Results: Microbiology 10/23/20 22:04 Blood - Venous Blood Culture - Final No growth after 5 days. 10/23/20 22:04 Blood - Venous Blood Culture - Final No growth after 5 days. Assessment and Plan (1) COVID-19: Status: Acute (2) Hypoxia: Status: Acute (3) Acute pancreatitis: Problem details: Can stop Levaquin and Flagyl after 5 days cover pancreatitis Status: Acute (4) Alcohol withdrawal: Status: Acute Assessment and Plan: 39-year-old female with past medical history opioid dependence on Methadone, recent diagnosis of COVID on 10/19/2020 and sent home with Prednisone and Azithromycin, history of alcoholisms, hypertension. She presented with worsening shortness of breath and diffuse abdominal pain. CT of abdomen showed acute pancreatitis and Lipase level was over 1000 and concern of alcohol withdrawal as well, and hypoxia from covid. 1. Acute hypoxic respiratory failure from covid 19 PNA. She is still febril and requiring Oxygen Continue cortisteroid (Dexamethasone), levaquin , continue oxygen ID conn -continue levaquin 2. Acute Alcoholic Pancratitis--CT no stone. Seen by surgery, no surgical issue advanced diet, repeat lipase, Dilaudid for pain. 3. Alcohol withdrawal--Phenobarbital protocol, thiamine folate, CARE team consult before discharge 4. Opioid dependence--Continue Methadone 5. hypokalemia : still hypokaelmia yeserday received around 120 meq potassium added po and iv potassium, will give magnesium also since borderline.
[2020-10-30] MEDS: 0.9 % Sodium Chloride Flush 3 ML SYRINGE IVFLUSH ×3 (09:32→22:30)
[2020-10-30] MEDS: dexAMETHasone sod phosphate 4 MG/ML VIAL 6 MG IVPUSH (09:32)
[2020-10-30] MEDS: Thiamine HCL 100 MG TABLET PO (09:33)
[2020-10-30] MEDS: Folic Acid 1 MG TABLET PO (09:33)
[2020-10-30] MEDS: Metoprolol Tartrate 100 MG TABLET PO ×2 (09:34→22:30)
[2020-10-30] MEDS: Potassium Chloride Packet 20 MEQ PACKET 40 MEQ PO ×2 (09:43→15:22)
[2020-10-30] MEDS: Magnesium Sulfate/D5W 1 GM/100 ML PIGGYBACK IV (09:43)
[2020-10-30 10:07] LABS: Alanine Aminotransferase 41 U/L (0-31); Albumin Level 3.5 g/dL (3.5-5.0); Alkaline Phosphatase 98 U/L (39-117); Aspartate Amino Transferase 59 U/L (5-31); Bilirubin Direct 1.1 mg/dL (0.0-0.5); Bilirubin Total 1.4 mg/dL (0.0-1.0); Total Protein 6.2 g/dL (6.5-8.0)
--- NOTE | 2020-10-30 11:09 | MHC.RECOVSUP ---
Recovery Support note: Patient is a 39 year old Belarusian speaking female who presented to [facility] ED after feeling unwell upon finishing a course of medication. Patient was medically admitted. This greeting card writer consulted patient over the phone. Patient was pleasant and willing to discuss her alcohol use with this greeting card writer. Patient reports her Mother earlier this year and her drinking slowly increased to the point where patient was drinking every day. Patient reports that she had been wanting to stop this cycle of drinking however she had concerns regarding her heart condition and withdrawal. Patient reports confidence that after discharge she will be able to maintain sobriety stating I don't want to have to go through this again. Patient reports she has a strong support network of friends and family as well as an outpatient therapist. Discussed IOP with patient, patient was familiar with this form of support and reports she will consider it if she is interested in additional support. Patient reports she is looking forward to discharging and returning home. This greeting card writer available as needed.
[2020-10-30] MEDS: Enoxaparin Sodium 40 MG/0.4 ML SYRINGE SUBCUT (22:30)
[2020-10-30] MEDS: levoFLOXacin/D5W 750 MG/150 ML PIGGYBACK 200 MG IV (22:30)
[2020-10-31] VITALS: PULSE 65
[2020-10-31] MEDS: Acetaminophen 325 MG TABLET 650 MG PO (01:52)
[2020-10-31 04:00] VITALS: BP 139/85; PULSE 67; RESP 16; O2SAT 95
[2020-10-31] MEDS: HYDROmorphone HCl 1 MG/ML SYRINGE IVPUSH (04:56)
[2020-10-31] MEDS: Omeprazole 20 MG CAPSULE.DR PO (04:56)
[2020-10-31 06:27] LABS: Anion Gap 15 (12-20); Blood Urea Nitrogen 9 mg/dL (9-16); Calcium 8.3 mg/dL (8.4-10.2); Carbon Dioxide 20 mmol/L (22-29); Chloride 106 mmol/L (96-108); Creatinine Clr Calc Pharmacy 126.9; Estimated Glomerular Filt Rate > 60; Glucose Random 93 mg/dL (60-115); Potassium 3.5 mmol/l (3.3-5.1); Sodium 137 mmol/L (135-145)
[2020-10-31 08:00] VITALS: BP 141/86; PULSE 73; RESP 16; TEMP 37; O2SAT 97
[2020-10-31 09:19] VITALS: BP 141/86; PULSE 71
[2020-10-31] MEDS: dexAMETHasone sod phosphate 4 MG/ML VIAL 6 MG IVPUSH (09:19)
[2020-10-31] MEDS: 0.9 % Sodium Chloride Flush 3 ML SYRINGE IVFLUSH (09:19)
[2020-10-31] MEDS: Metoprolol Tartrate 100 MG TABLET PO (09:19)
[2020-10-31] MEDS: Folic Acid 1 MG TABLET PO (09:19)
[2020-10-31] MEDS: Thiamine HCL 100 MG TABLET PO (09:19)
--- NOTE | 2020-10-31 12:16 | MHC.CM.PN ---
Patient will be discharged home today no services. Family will provide transport.
--- NOTE | 2020-10-31 12:29 | PM.DS ---
DS: Providers Provider Date of admission: 10/24/20 01:08 Primary care physician: Unknown Physician Consults: 10/24/20 20:39 Consult to General Surgery Routine Consulting Provider: Vincenzo Wagoner Reason for consultation: Appendicitis Has provider been notified: Yes 10/25/20 14:48 Consult to Infectious Diseases Routine Consulting Provider: Silke Anna Reason for consultation: covid pneumonia 10/30/20 08:04 Consult to Crisis Stat Reason for consultation: alcohol use Has provider been notified: No DS: Diagnosis Discharge Diagnosis (1) COVID-19: Status: Acute (2) Hypoxia: Status: Acute (3) Acute pancreatitis: Status: Acute Problem details: Can stop Levaquin and Flagyl after 5 days cover pancreatitis (4) Alcohol withdrawal: Status: Acute DS: Medications Discharge Medications Home Medications: Home Medications Medication Instructions Recorded Confirmed metoprolol tartrate 100 mg PO BID 10/23/20 10/23/20 methadone 91 mg PO DAILY 10/25/20 10/25/20 Previous Rx's Medication Instructions Recorded albuterol sulfate 2 puff INHALATION QID PRN #6.7 g 10/19/20 azithromycin See Rx Instructions PO .COMPLEX #6 10/19/20 tab pantoprazole 20 mg PO DAILY #30 tab 10/19/20 dexamethasone 6 mg PO DAILY #4 tab 10/31/20 folic acid 1 mg PO DAILY #30 tab 10/31/20 potassium chloride 10 meq PO DAILY #3 tab 10/31/20 thiamine mononitrate (vit B1) 100 mg PO DAILY #30 tab 10/31/20 DS: Summary Hospital Course Hospital Course: 39-year-old female with past medical history opioid dependence on Methadone, recent diagnosis of COVID on 10/19/2020 and sent home with Prednisone and Azithromycin, history of alcoholisms, hypertension. She presented with worsening shortness of breath and diffuse abdominal pain. CT of abdomen showed acute pancreatitis and Lipase level was over 1000 and concern of alcohol withdrawal as well, and hypoxia from covid. Patient came to the hospital due to acute pancreatitis, alcohol withdrawal, COVID pneumonia. Subsequently started on bowel rest, IV fluid and pain management for pancreatitis conn-seems to be improved, her LFTs are also improving. 2. Alcohol withdrawal: Treated with phenobarb seems improved. Elevated LFT probably related to alcohol use: LFTs are improving, patient was advised to follow-up liver function tests in 1 week outpatient with PCP she says that she is going to make her own appointment. 3. COVID pneumonia : Patient received dexamethasone seems to be improved, does not require any oxygen. Patient is going to go home with dexamethasone complete the course . 4. Hypokalemia: Patient was given potassium and hypokalemia seems to be resolved. Will give limited potassium supply for 3 days. Patient is to follow-up renal function and electrolytes with PCP in a week, she says that she is going to make her appiontment. Above management discussed with the patient in detail length she understand and in agreement with the above plan, time spent 50 minutes and 50% time spent on counseling. Significant findings: As above. Procedures performed: None. Treatment and response: As above. Complications: None. Time Spent with Patient Time attestation: Total time spent providing and/or coordinating discharge services: Physical Exam Vital Signs: Vital Signs: Last Vital Signs Temp 98.6 F 10/31/20 08:00 Pulse 71 10/31/20 09:19 Resp 16 10/31/20 08:00 BP 141/86 H 10/31/20 09:19 Pulse Ox 97 10/31/20 08:00 Body Mass Index 36.6 Physical exam: Constitutional: Not in distress. Cvs: rrr, [id number] , no murmur res: Fair air entry, no rales or wheezing. abd: no rebound or guarding ,nt, bs present. ext pulses present , no cyanosis neuro: axo3 , nonfocal. DS: Data Data Completed and Pending Labs on day of discharge: 10/23/20 20:09 CT abdomen pelvis wo con Stat CT chest wo con Stat 10/23/20 20:10 ECG 12 lead EKG Stat EKG Documentation DIRECTED 10/23/20 20:39 Complete Blood Count Auto Diff Stat Troponin-I High Sensitivity Stat 10/23/20 21:16 Morphine Sulfate 4 mg IVPUSH ONCE ONE ondansetron HCL [Zofran] 4 mg IVPUSH ONCE ONE 10/23/20 21:30 Basic Metabolic Panel Stat Lipase Stat Liver Panel Stat Magnesium Stat 10/23/20 21:46 Piperacillin Sodium/Tazobactam [Zosyn] 3.375 gm 0.9 % Sodium Chloride [Ns] 50 ml IV ONCE 10/23/20 21:51 Vital Signs Q30M 0.9 % Sodium Chloride [Ns] 2,993.7 ml IVCONT 2,993.7 mls/hr LORazepam [Ativan] 2 mg IVPUSH ONCE ONE 10/23/20 22:04 Basic Metabolic Panel Stat Lactic Acid Stat Lipase Stat Liver Panel Stat Triglycerides Stat Blood Culture X2 [BC] Stat 10/23/20 22:09 Piperacillin Sodium/Tazobactam [Zosyn] 3.375 gm IV .STK-MED ONE 10/23/20 22:10 Piperacillin Sodium/Tazobactam [Zosyn] 3.375 gm IV .STK-MED ONE 10/23/20 22:18 HYDROmorphone HCl [Dilaudid] 0.5 mg IVPUSH ONCE ONE 10/23/20 22:31 LORazepam [Ativan] 2 mg IVPUSH ONCE ONE 10/23/20 22:36 Metoprolol Tartrate [Lopressor] 100 mg PO ONCE ONE 10/23/20 23:39 Consult Rx EtOH Phenob Dosing 1 each MISCELLANE ONCE ONE 10/24/20 00:30 PHENobarbitaL sodium 274 mg IM ONCE ONE 10/24/20 00:58 Transfer Order Routine 10/24/20 03:30 PHENobarbitaL sodium 205 mg IM Q3H 10/24/20 Breakfast NPO Diet 10/24/20 20:39 Lactated Ringers [Lr] 1,000 ml IVCONT 200 mls/hr Morphine Sulfate 4 mg IVPUSH Q4H PRN metroNIDAZOLE/NS [Flagyl] 500 mg in 100 ml IV Q8H 10/24/20 21:00 PHENobarbitaL 45 mg PO BID 10/25/20 US abdomen limited Routine 10/25/20 04:53 Basic Metabolic Panel Routine Complete Blood Count Auto Diff Routine Lipase Routine 10/25/20 14:25 Add Laboratory Test Routine 10/25/20 18:36 HIV Ab/Ag Routine Hepatitis C Antibody Routine 10/26/20 03:24 HYDROmorphone HCl [Dilaudid] 0.5 mg IVPUSH ONCE ONE 10/26/20 09:03 HYDROmorphone HCl [Dilaudid] 1 mg IVPUSH Q4H PRN 10/26/20 09:15 Dextrose 5 % and 0.45 % NaCl [D51/2Ns] 1,000 ml IVCONT 100 mls/hr 10/26/20 Lunch NPO Diet 10/26/20 16:47 Liver Panel Urgent 10/26/20 21:00 PHENobarbitaL 15 mg PO BID 10/27/20 09:30 Lactated Ringers [Lr] 1,000 ml IVCONT 80 mls/hr 10/27/20 09:45 Lactated Ringers [Lr] 1,000 ml IVCONT 100 mls/hr 10/27/20 09:52 Liver Panel Routine 10/28/20 06:00 Butalb/Acetamin/Caff 50/325/40 [Fioricet] 1 tab PO ONCE ONE 10/28/20 07:05 Basic Metabolic Panel DAILY Liver Panel Routine 10/28/20 Lunch Clear Liquid Diet 10/28/20 16:45 Potassium Chloride/H20 10 meq in 100 ml IV Q1H 10/28/20 21:00 PHENobarbitaL 15 mg PO BEDTIME 10/29/20 06:16 Basic Metabolic Panel DAILY 10/29/20 07:58 Potassium Chloride Packet [Klor-Con Packet] 40 meq PO ONCE ONE 10/29/20 08:00 Potassium Chloride/H20 10 meq in 100 ml IV Q1H 10/29/20 Lunch Full Liquid Diet 10/29/20 18:40 Potassium Chloride Packet [Klor-Con Packet] 40 meq PO ONCE ONE 10/29/20 18:42 Magnesium Sulfate/D5W 1 gm in 100 ml IV ONCE 10/29/20 20:17 Magnesium Routine Potassium Routine 10/30/20 07:11 Basic Metabolic Panel DAILY Liver Panel Routine Magnesium DAILY 10/30/20 09:09 Magnesium Sulfate/D5W 1 gm in 100 ml IV ONCE Potassium Chloride Packet [Klor-Con Packet] 40 meq PO ONCE ONE 10/30/20 09:15 Potassium Chloride/H20 10 meq in 100 ml IV Q1H 10/30/20 09:55 Add Laboratory Test Urgent 10/30/20 14:17 Potassium Chloride Packet [Klor-Con Packet] 40 meq PO ONCE ONE 10/31/20 05:47 Basic Metabolic Panel DAILY@0600 Laboratory Last Values WBC 9.7 X10*3/uL (4.8-10.8) 10/25/20 04:53 RBC 3.07 X10*6/uL (4.20-5.50) L 10/25/20 04:53 Hgb 11.1 g/dl (12.0-16.0) L 10/25/20 04:53 Hct 31.0 % (37-47) L 10/25/20 04:53 MCV 101.0 fL (80-98) H 10/25/20 04:53 MCH 36.2 pg (27.0-33.0) H 10/25/20 04:53 MCHC 35.8 g/dl (31.0-35.0) H 10/25/20 04:53 RDW 12.7 % (11.0-16.0) 10/25/20 04:53 Plt Count 175 X10*3/uL (160-400) D 10/25/20 04:53 MPV 11.3 fL (9.4-12.3) 10/25/20 04:53 Immature Gran % (Auto) 0.6 % (0.0-0.4) H 10/25/20 04:53 Neut % (Auto) 82.9 % (45-73) H 10/25/20 04:53 Lymph % (Auto) 13.5 % (20-40) L 10/25/20 04:53 [place] % (Auto) 2.3 % (2-11) 10/25/20 04:53 Eos % (Auto) 0.5 % (0-4) 10/25/20 04:53 Baso % (Auto) 0.2 % (0-2) 10/25/20 04:53 Lymph # (Auto) 1.3 X10*3/uL (1.2-4.9) 10/25/20 04:53 [place] # (Auto) 0.2 X10*3/uL (0.1-1.2) 10/25/20 04:53 Eos # (Auto) 0.1 X10*3/uL (0.0-0.4) 10/25/20 04:53 Baso # (Auto) 0.0 X10*3/uL (0.0-0.2) 10/25/20 04:53 Abs Immat Gran (auto) 0.06 X10*3/uL (0.00-0.03) H 10/25/20 04:53 Absolute Neuts (auto) 8.0 X10*3/uL (2.0-8.3) 10/25/20 04:53 Absolute Nucleated RBC 0.000 X10*3/uL (0.0-0.012) 10/25/20 04:53 Nucleated RBC % (auto) 0.0 /100WBC (0.0-0.2) 10/25/20 04:53 Sodium 137 mmol/L (135-145) 10/31/20 05:47 Potassium 3.5 mmol/l (3.3-5.1) D 10/31/20 05:47 Chloride 106 mmol/L (96-108) 10/31/20 05:47 Carbon Dioxide 20 mmol/L (22-29) L 10/31/20 05:47 Anion Gap 15 (12-20) 10/31/20 05:47 BUN 9 mg/dL (9-16) D 10/31/20 05:47 Creatinine 0.71 mg/dL (0.5-1.4) 10/31/20 05:47 Estim Creat Clear Calc 126.9 10/31/20 05:47 Estimated GFR > 60 10/31/20 05:47 Random Glucose 93 mg/dL (60-115) 10/31/20 05:47 Lactic Acid 1.8 mmol/L (0.5-2.0) 10/23/20 22:04 Calcium 8.3 mg/dL (8.4-10.2) L 10/31/20 05:47 Magnesium 1.9 mg/dL (1.6-2.6) 10/30/20 07:11 Total Bilirubin 1.4 mg/dL (0.0-1.0) H 10/30/20 07:11 Direct Bilirubin 1.1 mg/dL (0.0-0.5) H 10/30/20 07:11 AST 59 U/L (5-31) H 10/30/20 07:11 ALT 41 U/L (0-31) H 10/30/20 07:11 Alkaline Phosphatase 98 U/L (39-117) 10/30/20 07:11 Troponin I High Sens 4.0 ng/L (<3.5-17.0) 10/23/20 20:39 Total Protein 6.2 g/dL (6.5-8.0) L 10/30/20 07:11 Albumin 3.5 g/dL (3.5-5.0) 10/30/20 07:11 Triglycerides 221 mg/dL 10/23/20 22:04 Lipase 530 U/L (8-78) H 10/25/20 04:53 Hepatitis C Ab (EIA) Nonreactive (Nonreactive) 10/25/20 18:36 HIV 1&2 Ab/P24 Ag 4thGn Nonreactive (Nonreactive) 10/25/20 18:36 Discharge Plan Discharge Patient Disposition: Home, Self-Care Referrals: Physician,Unknown [Primary Care Provider] - Discharge Medications: New folic acid 1 mg Tablet 1 mg PO DAILY Qty: 30 RF: 0 thiamine mononitrate (vit B1) 100 mg Tablet 100 mg PO DAILY Qty: 30 RF: 0 potassium chloride 10 mEq tablet extended release 10 meq PO DAILY Qty: 3 RF: 0 dexamethasone 6 mg tablet 6 mg PO DAILY Qty: 4 RF: 0 Continued metoprolol tartrate 100 mg PO BID RF: 0 methadone 10 mg/mL Concentrate 91 mg PO DAILY RF: 0 pantoprazole 20 mg tablet,delayed release (DR/EC) 20 mg PO DAILY Qty: 30 RF: 2 azithromycin 500 mg tablet See Rx Instructions PO .COMPLEX Qty: 6 RF: 0 albuterol sulfate 90 mcg/actuation HFA aerosol inhaler 2 puff inhalation QID PRN (Reason: shortness of breath or wheezing) Qty: 6.7 RF: 0 Discontinued prednisone 20 mg tablet 40 mg PO DAILY 4 Days Qty: 8 RF: 0 Discharge Orders: Discharge Order (Routine); Ordered 10/31/20 Ordered By: Roxann Cartagena Diet: advance to usual diet, low fat, low cholesterol and low salt diet Activity on Discharge: As tolerated Visit Report Forms: Patient Portal Discharge page Care Plan Goals: Patient came to the hospital due to acute pancreatitis, alcohol withdrawal, COVID pneumonia. Subsequently started on bowel rest, IV fluid and pain management for pancreatitis conn-seems to be improved, her LFTs are also improving. 2. Alcohol withdrawal: Treated with phenobarb seems improved. Elevated LFT probably related to alcohol use: LFTs are improving, patient was advised to follow-up liver function tests in 1 week outpatient with PCP she says that she is going to make her own appointment. 3. COVID pneumonia : Patient received dexamethasone seems to be improved, does not require any oxygen. Patient is going to go home with dexamethasone complete the course . 4. Hypokalemia: Patient was given potassium and hypokalemia seems to be resolved. Will give limited potassium supply for 3 days. Patient is to follow-up renal function and electrolytes with PCP in a week, she says that she is going to make her appiontment appointment. Health Concerns: as above. Plan of Treatment: as above.
== END 2020-10-31 12:46 | disposition home or self-care (01) | DRG 137 ==
LOC: HO.ED 23:57 → HO.IMC 10-24 19:18 → HO.ISO 10-25 16:19
PROVIDERS: Internal Medicine; Nurse Practitioner Family; Admitting Provider Internal Medicine; Emergency Provider Emergency Medicine; Visit Provider Internal Medicine
DX: U07.1 COVID-19 (principal); J96.01 Acute respiratory failure with hypoxia; K85.20 Alcohol induced acute pancreatitis without necrosis or infection; F11.20 Opioid dependence, uncomplicated; E87.6 Hypokalemia; F10.230 Alcohol dependence with withdrawal, uncomplicated; J12.89 Other viral pneumonia; F17.210 Nicotine dependence, cigarettes, uncomplicated; K21.9 Gastro-esophageal reflux disease without esophagitis; Z71.6 Tobacco abuse counseling; Z79.899 Other long term (current) drug therapy
CPT/HCPCS: 36415; 71250; 74176; 76705; 80048; 80076; 83605; 83690; 83735; 84132; 84478; 84484; 85025; 86803; 87040; 87389; 93005; 96365; 96372; 96375; 96376; 99285; 99291; 99292; J1100; J1170; J1650; J1956; J2060; J2270; J2405; J2543; J2560; J3475

== ENCOUNTER 2021-01-18 15:45 | Outpatient (REF) | payer OTHER, SELFPAY ==
--- NOTE | ~2021-01-18 | US_ITS ---
EXAMINATION: US VENOUS ULTRASOUND WITH DOPPLER LOWER EXTREMITY, RIGHT CLINICAL INFORMATION: Swelling COMPARISON: None TECHNIQUE: Ultrasound of the deep veins is performed from the hip to the calf with compression sonography and color and pulse Doppler assessment. Spectral analysis with color-flow imaging is performed. FINDINGS: The visualized common femoral vein, superficial femoral vein, profunda femoral vein and popliteal veins are patent. There is hypoechoic material, absent low and decreased compression of a calf vein suggestive of calf DVT. There is no significant popliteal fossa cyst. US/US venous duplex LE RT IMPRESSION: Calf DVT. Findings were communicated to Dr. Roberts by telephone on 01/18/2021 at 4:45 PM.
[2021-01-18 16:52] LABS: Hemoglobin 14.6 g/dl (12.0-16.0); Mean Corpuscular Hemoglobin 35.2 pg (27.0-33.0); Mean Corpuscular Volume 103.6 fL (80-98); Mean Platelet Volume 10.2 fL (9.4-12.3); Platelet Count 208 X10*3/uL (160-400); Red Blood Count 4.15 X10*6/uL (4.20-5.50); Red Cell Distribution Width 13.1 % (11.0-16.0); White Blood Count 9.1 X10*3/uL (4.8-10.8)
[2021-01-18 17:21] LABS: Alanine Aminotransferase 59 U/L (0-31); Albumin Level 4.2 g/dL (3.5-5.0); Alkaline Phosphatase 122 U/L (39-117); Aspartate Amino Transferase 93 U/L (5-31); Bilirubin Direct 0.3 mg/dL (0.0-0.5); Bilirubin Total 0.7 mg/dL (0.0-1.0); Cholesterol 226 mg/dL; HDL Cholesterol 32 mg/dL; Total Protein 7.9 g/dL (6.5-8.0); Triglycerides 517 mg/dL
[2021-01-18 17:42] LABS: Thyroid Stimulating Hormone 1.86 uIU/mL (0.32-4.0)
[2021-01-18 17:56] LABS: Vitamin B12 518 pg/mL (200-900)
[2021-01-23 12:56] LABS: Vitamin D 25-OH, D2 <4 ng/mL; Vitamin D 25-OH, D3 8 ng/mL; Vitamin D 25-OH, Total 8 ng/mL (30-100)
== END 2021-01-18 15:46 | disposition home or self-care (01) ==
LOC: HO.US 15:45
PROVIDERS: PCP Internal Medicine; Visit Provider Internal Medicine
DX: I82.401 Acute embolism and thrombosis of unspecified deep veins of right lower extremity (principal); F33.2 Major depressive disorder, recurrent severe without psychotic features
CPT/HCPCS: 36415; 80061; 80076; 82306; 82607; 82746; 84443; 85027; 93971

== ENCOUNTER 2021-06-25 13:27 | Outpatient (REF) | payer OTHER, SELFPAY ==
--- NOTE | ~2021-06-25 | US_ITS ---
EXAMINATION: US DIAGNOSTIC ULTRASOUND BREAST, LEFT CLINICAL INFORMATION: Tender palpable region around the nipple. COMPARISON: None. TECHNIQUE: Ultrasound of the breast is performed with real-time yoder scale imaging and color Doppler. FINDINGS: Targeted left breast ultrasound demonstrates in the retroareolar region approximately 6:00 location a 1.3 x 0.7 x 1.3 cm hypoechoic partially cystic and partially solid lesion with distal sound enhancement consistent with possible region of phlegmon or small abscess which is not totally liquefied. No internal vascularity is seen. There is some peripheral vascularity present. There is skin thickening seen about this region with some edema. No suspicious shadowing mass is appreciated. Results are discussed with the patient at time of visit. Short-term follow-up ultrasound could be performed. US/US breast LT limited IMPRESSION: Left breast region of skin thickening and palpable nodular structure is likely infectious/inflammatory in nature. If symptoms do not improve with antibiotics then repeat short-term follow-up ultrasound could be performed with possible consideration of biopsy. Above information was called to referring provider's nurseMercedes on June 25, 2020 at approximately 2:30 PM. A prescription for antibiotics was going to be given to the patient by the provider's office. ASSESSMENT: BI-RADS 3: Probably Benign RECOMMENDATION: Clinical management
--- NOTE | ~2021-06-25 | MM_ITS ---
EXAMINATION: MM DIAGNOSTIC DIGITAL BREAST TOMOSYNTHESIS, BILATERAL US BREAST LIMITED, LEFT CLINICAL INFORMATION: Left breast tender lump below the nipple. The lifetime risk of breast cancer based on the Tyrer-Cuzick Model is 9.9%. COMPARISON: Mammography: None TECHNIQUE: Digital breast tomosynthesis is performed in both the craniocaudal and mediolateral oblique views along with computer-aided detection (CAD). Synthesized 2-D images are generated from the tomosynthesis. Targeted left breast ultrasound. FINDINGS: There is a small amount of deodorant present within both axillae. There are scattered areas of fibroglandular density (ACR BI-RADS breast composition Category b). No significant right breast abnormality is seen. No suspicious grouping of microcalcifications or abnormal dominant mass. Left breast mammogram demonstrates skin thickening as well as some increased parenchymal density anteriorly. No suspicious grouping of microcalcifications identified. In the region of tenderness and palpable abnormality, there appears to be a few adjacent circumscribed regions. Targeted left breast ultrasound demonstrates in the retroareolar region approximately 6 o'clock location a 1.3 x 0.7 x 1.3 cm hypoechoic partially cystic and partially solid lesion with distal sound enhancement consistent with possible region of phlegmon or small abscess which is not totally liquefied. No internal vascularity is seen. There is some peripheral vascularity present. There is skin thickening seen about this region with some edema. No suspicious shadowing mass is appreciated. Results are discussed with the patient at time of visit. Short-term followup ultrasound could be performed. MM/MM tomosynthesis diagnostic BI IMPRESSION: Left breast region of skin thickening and palpable nodular structure is likely infectious/inflammatory in nature. If symptoms do not improve with antibiotics, then repeat short-term followup ultrasound could be performed with possible consideration of biopsy. Above information was called to referring provider's nurse, Mercedes, on 06/25/2021 at approximately 2:30 PM. A prescription for antibiotics was going to be given to the patient by the provider's office. ASSESSMENT: BI-RADS 3: Probably Benign. RECOMMENDATION: Clinical management.
== END 2021-06-25 13:28 | disposition home or self-care (01) ==
LOC: HO.MAMMO 13:27
PROVIDERS: PCP Internal Medicine; Visit Provider Nurse Practitioner Family
DX: N63.25 Unspecified lump in the left breast, overlapping quadrants (principal)
CPT/HCPCS: 76642; 77062; 77066

== ENCOUNTER → 2021-07-29 08:39 | Outpatient (BNVA) | payer OTHER, SELFPAY | PROVIDERS: PCP Internal Medicine; Referring Provider Internal Medicine; Visit Provider Surgery | DX: N63.20 Unspecified lump in the left breast, unspecified quadrant (principal) | CPT/HCPCS: 99202 ==

== ENCOUNTER 2021-08-17 12:20 | Outpatient (REF) | payer OTHER, SELFPAY ==
--- NOTE | ~2021-08-17 | US_ITS ---
EXAMINATION: US VENOUS ULTRASOUND WITH DOPPLER LOWER EXTREMITY, RIGHT CLINICAL INFORMATION: Right lower extremity deep vein thrombosis. COMPARISON: Right lower extremity venous ultrasound dated 01/18/2021. TECHNIQUE: Ultrasound of the deep veins is performed from the hip to the calf with compression sonography and color and pulse Doppler assessment. Spectral analysis with color-flow imaging is performed. FINDINGS: There is normal venous compression and respiratory variation and augmented flow. The visualized common femoral vein, superficial femoral vein, profunda femoral vein, popliteal vein, and the trifurcation region shows no evidence of deep venous thrombosis. There is no significant popliteal fossa cyst. Previously seen calf vein thrombus no longer identified. If the patient's symptoms persist, follow-up ultrasound in 5 days 7 days might be of value to exclude proximal propagation from a nonvisualized calf vein. US/US venous duplex LE RT IMPRESSION: No DVT demonstrated in the right lower extremity. Previously seen right calf vein thrombus no longer identified.
[2021-08-17 13:31] LABS: Hematocrit 36.5 % (37-47); Hemoglobin 11.9 g/dl (12.0-16.0); Mean Corpuscular HGB Conc 32.6 g/dl (31.0-35.0); Mean Corpuscular Hemoglobin 32.2 pg (27.0-33.0); Mean Corpuscular Volume 98.9 fL (80-98); Mean Platelet Volume 11.1 fL (9.4-12.3); Platelet Count 237 X10*3/uL (160-400); Red Blood Count 3.69 X10*6/uL (4.20-5.50); Red Cell Distribution Width 15.3 % (11.0-16.0); White Blood Count 8.1 X10*3/uL (4.8-10.8)
[2021-08-17 13:50] LABS: Appearance Urine CLEAR; Color Urine YELLOW; Glucose Urine UA NEG (NEG); Leukocyte Esterase Urine NEG (NEG); Nitrite Urine NEG (NEG); Urine Blood NEG (NEG); Urine Ketones NEG (NEG); Urine Protein NEG (NEG-TRACE)
[2021-08-17 14:07] LABS: Alanine Aminotransferase 84 U/L (0-31); Albumin Level 3.6 g/dL (3.5-5.0); Alkaline Phosphatase 169 U/L (39-117); Anion Gap 15 (12-20); Aspartate Amino Transferase 188 U/L (5-31); Bilirubin Direct 0.4 mg/dL (0.0-0.5); Bilirubin Total 0.7 mg/dL (0.0-1.0); Blood Urea Nitrogen 2 mg/dL (9-16); Calcium 9.2 mg/dL (8.4-10.2); Carbon Dioxide 24 mmol/L (22-29); Chloride 103 mmol/L (96-108); Cholesterol 173 mg/dL; Estimated Glomerular Filt Rate > 60; Glucose Random 94 mg/dL (60-115); HDL Cholesterol 16 mg/dL; Potassium 4.1 mmol/L (3.3-5.1); Sodium 138 mmol/L (135-145); Total Protein 6.8 g/dL (6.5-8.0); Triglycerides 571 mg/dL
[2021-08-17 14:29] LABS: Thyroid Stimulating Hormone 1.55 uIU/mL (0.32-4.0)
== END 2021-08-17 12:21 | disposition home or self-care (01) ==
LOC: HO.US 12:20
PROVIDERS: PCP Internal Medicine; Visit Provider Internal Medicine
DX: I82.461 Acute embolism and thrombosis of right calf muscular vein (principal); R51.9 Headache, unspecified
CPT/HCPCS: 36415; 80048; 80061; 80076; 81003; 84443; 85027; 93971; U0005

== ENCOUNTER 2021-08-18 06:41 | Day surgery (SDC) | payer OTHER, SELFPAY ==
[2021-08-13 14:00] VITALS: BMI 33.3
--- NOTE | 2021-08-16 14:37 | HO.ANESPROP2 ---
Documented by User: Verna Francisco NP 08/17/21 14:37 HPI - Anesthesia Eval Consult details Narrative: 40yo F for Left Excision of Breast Cyst Methadone daily Xarelto for h/o DVT - Pt stopped a few weeks ago, but PCP wants [facility] prior to surgery. - scheduled 08/17/21 @ 1230 T/C to patient 08/16/21 1445 - confirmed she will attend [facility] and have ordered labs drawn 08/17 Increasing LFT's on 08/17/21 labs. Case reviewed with Dr Villegas and Dr Weber. Plan to proceed with [facility]. [facility] Active Problems Active Problems: All Active Problems (Updated 06/14/21 @ 16:58 by GILLES Munoz) Left breast lump (Acute) Screening for breast cancer (Acute) Frequent headaches (Acute) Alcohol abuse (Acute) Acute deep vein thrombosis (DVT) of right lower extremity (Acute) Endogenous depression (Acute) COVID-19 (Acute) Hypoxia (Acute) Alcohol withdrawal (Acute) Acute pancreatitis (Acute) Past Medical History Medical History Acute deep vein thrombosis (DVT) of right lower extremity Alcohol abuse Asthma GERD (gastroesophageal reflux disease) Hypertension Left breast lump Screening for breast cancer SVT (supraventricular tachycardia) Family History Family History Mother Substance abuse Father No problems noted. Maternal Aunt Cancer of unknown origin Surgical History Surgical History History of excision of pilonidal cyst No history of previous surgery Social History Social History Household Members: Family Housing: Apartment Do you presently have visiting nurse or other home services: No Alcohol intake: current Alcohol intake frequency: a few times a week Patient Tobacco Use Status: Current everyday Tobacco user Tobacco use type: Cigarette Cigarettes Per Day: 6 e-Cigarette/Vaping Use: Never Used Second Hand Smoke Exposure: No Use of substances other than those prescribed or required for medical reasons: Yes Substance Use Frequency: Daily Are you DNR?: No Advance Directives: No Advance Directives Information Provided: Yes service: No Current occupational status: unemployed Current occupational exposures/hazards: No Meds Allergies Allergy/AdvReac Type Severity Reaction Status Date / Time No Known Allergies Allergy Verified 08/18/21 07:43 Home Medications Medication Instructions Recorded Confirmed Last Taken Type methadone 10 mg/mL oral concentrate 78 mg PO DAILY ml 07/12/21 07/21/21 08/18/21 06:00 History Exam Exam Date and Time: August 16, 2021 1437 Height,Weight and Vital Signs: Height 5 ft 5 in Weight 90.718 kg Pertinent Lab Results Pertinent Lab Results: Laboratory Tests 08/17/21 08/17/21 13:19 13:19 WBC 8.1 Hgb 11.9 L Hct 36.5 L Plt Count 237 Sodium 138 Potassium 4.1 Chloride 103 Carbon Dioxide 24 BUN 2 L D Creatinine 0.75 Estimated GFR > 60 Calcium 9.2 D Total Bilirubin 0.7 Direct Bilirubin 0.4 AST 188 H ALT 84 H Alkaline Phosphatase 169 H D Total Protein 6.8 Albumin 3.6 Narrative Narrative: EKG 09/2020 Vent. Rate : 066 BPM ? ? Atrial Rate : 066 BPM ?? P-R Int : 142 ms? QRS Dur : 090 ms ? ? QT Int : 444 ms ? ? ? P-R-T Axes : 064 052 045 degrees ?? QTc Int : 465 ms ? Normal sinus rhythm Normal ECG When compared with ECG of 04-MAY-2020 19:45, No significant change was found Assessment and Plan Assessment Anesthesia Assessment: Chart Reviewed Documented by User: Meera Guthrie MD 08/18/21 08:27 [facility] Past Medical History Medical History Acute deep vein thrombosis (DVT) of right lower extremity Alcohol abuse Asthma GERD (gastroesophageal reflux disease) Hypertension Left breast lump Screening for breast cancer SVT (supraventricular tachycardia) Family History Family History Mother Substance abuse Father No problems noted. Maternal Aunt Cancer of unknown origin Surgical History Surgical History History of excision of pilonidal cyst No history of previous surgery History of Problems with Anesthesia: No Social History Social History Household Members: Family Housing: Apartment Do you presently have visiting nurse or other home services: No Alcohol intake: current Alcohol intake frequency: a few times a week Patient Tobacco Use Status: Current everyday Tobacco user Tobacco use type: Cigarette Cigarettes Per Day: 6 e-Cigarette/Vaping Use: Never Used Second Hand Smoke Exposure: No Use of substances other than those prescribed or required for medical reasons: Yes Substance Use Frequency: Daily Are you DNR?: No Advance Directives: No Advance Directives Information Provided: Yes service: No Current occupational status: unemployed Current occupational exposures/hazards: No Meds Allergies Allergy/AdvReac Type Severity Reaction Status Date / Time No Known Allergies Allergy Verified 08/18/21 07:43 Home Medications Medication Instructions Recorded Confirmed Last Taken Type methadone 10 mg/mL oral concentrate 78 mg PO DAILY ml 07/12/21 07/21/21 08/18/21 06:00 History Exam Airway Mallampati Class: I TM Dist: >3cm Neck ROM: Full Loose/Missing/Broken Teeth: No Heart: RRR Lungs: CTA Assessment and Plan Assessment Anesthesia Assessment: Anesthesia Plan Discussed Final Anesthetic Review History of Problems with Anesthesia: No NPO: Yes ASA Class: II Final Preanesthetic Review: Meds/Allgs Chart Reviewed, Consent Obtained/Reviewed and Anes Risks/Benef Reviewed Patient Risk: Low Procedure Risk: Low Anesthetic Plan Anesthetic Plan: GA Disposition: Standard PACU
[2021-08-18 07:59] LABS: UPreg QC Valid YES; Urine Pregnancy NEGATIVE (NEGATIVE)
[2021-08-18 08:06] VITALS: BP 111/64; PULSE 80; RESP 16; TEMP 36.6; O2SAT 97
[2021-08-18] MEDS: Lactated Ringers 1,000 ML 100 ML IVCONT (08:24)
--- NOTE | 2021-08-18 08:25 | MHC.SHP ---
Pre-Procedural Eval Section A Date of Service: 08/18/21 The patient is an INPATIENT: No Changes since office visit: Yes Patient answered all questions; No Cold of Flu in the past 2 weeks, No New Medical Problems and No Changes in Medication The History & Physical has been completed within 30 days and I have reviewed it.: Yes Section B Chief Complaint: lump of left breast Allergies: Allergies Allergy/AdvReac Type Severity Reaction Status Date / Time No Known Allergies Allergy Verified 08/18/21 07:43 Plan Diagnosis/Plan: Unchanged I have reviewed the history and physical and performed a pertinent physical examination on my patient. No changes have occurred unless specified.
--- NOTE | 2021-08-18 09:27 | P.OP_ITS ---
Operative Note Operative Note Date of Service: 08/18/21 Narrative: Preoperative diagnosis: Breast cyst left Postoperative diagnosis: Same Procedure: Excision of left breast cyst Surgeon: Vincenzo Wagoner MD Hydraulic Specialist: Erika Gan PA-C Anesthesia: General LMA Indications for procedure: 40-year-old female with a prior history of an abscess of the left breast located in the 6 o'clock position just below the nipple-areolar complex. Lesion is now resolved however there is a persistent palpable nodule consistent with a underlying cyst. She presents today for excision. Operative findings: 1 cm palpable nodule just below the areola in the left Breast at the 6 o'clock position Specimen: Left breast cyst Estimated blood loss: 1 mL Complications: None Procedure details: Patient was brought to the OR and placed in a supine position. After administering general anesthesia the patient's left breast was prepped with ChloraPrep and draped in a sterile fashion. A surgical time-out was called and consent confirmed. Patient received preoperative antibiotics and Venodyne boots were in place. Local anesthesia consisting of 0.5% Sensorcaine plain was infiltrated in a curvilinear fashion below the areola in the 6 o'clock position. Incision was then made at the margin of the areola carried out through subcutaneous tissue. Superior and inferior skin flaps were then created. Dissection was continued below the nipple-areolar complex in over the palpable cyst. A core of tissue surrounding this palpable nodule was then removed using electrocautery. Hemostasis was assured all times using electrocautery. Specimen was removed from the table and sent to pathology for further examination. Wounds were irrigated with saline solution and suctioned dry. Additional local was infiltrated at this time. Deep breast tissue was then reapproximated using interrupted 3-0 Polysorb sutures. Dermis was reapproximated using interrupted 3-0 Polysorb sutures. Skin was closed using a subcuticular 4-0 Polysorb suture. Steri-Strips 2 x 2 gauze and Tegaderm were then applied. The patient tolerated the procedure well. Sponge, instrument, and needle counts reported as correct. She was transferred to PACU in stable condition.
[2021-08-18 09:38] VITALS: BP 115/62; PULSE 76; RESP 16; TEMP 36.7; O2SAT 100
[2021-08-18 09:43] VITALS: BP 113/87; PULSE 72; RESP 16; O2SAT 100
[2021-08-18 09:48] VITALS: BP 115/65; PULSE 71; RESP 16; O2SAT 100
[2021-08-18 09:53] VITALS: BP 113/71; PULSE 75; RESP 16; O2SAT 95
[2021-08-18 10:08] VITALS: BP 117/69; PULSE 73; RESP 16; TEMP 36.7; O2SAT 98
== END 2021-08-18 10:39 | disposition home or self-care (01) ==
PROVIDERS: Nurse Practitioner; PCP Internal Medicine; Visit Provider Surgery
PROC: (CPT 19120; principal; 2021-08-18 09:10)
DX: N60.02 Solitary cyst of left breast (principal); J45.909 Unspecified asthma, uncomplicated; I10 Essential (primary) hypertension; I47.1 Supraventricular tachycardia; Z86.718 Personal history of other venous thrombosis and embolism; Z79.01 Long term (current) use of anticoagulants; Z79.899 Other long term (current) drug therapy; F10.10 Alcohol abuse, uncomplicated; F17.210 Nicotine dependence, cigarettes, uncomplicated
CPT/HCPCS: 19120; 81025; 88304; 88305; 88312; J0690; J1100; J2250; J2405; J3010

== ENCOUNTER → 2021-08-26 15:47 | Outpatient (BNVA) | payer OTHER, SELFPAY | PROVIDERS: PCP Internal Medicine; Referring Provider Internal Medicine; Visit Provider Surgery | DX: N63.20 Unspecified lump in the left breast, unspecified quadrant (principal) | CPT/HCPCS: 99212 ==

== ENCOUNTER 2021-08-28 | Inpatient (IN) | payer OTHER, SELFPAY ==
[2021-08-28] VITALS (11 sets, daily range): BP systolic 105–148; BP diastolic 61–92; PULSE 66–82; RESP 13–18; TEMP 36.2–36.9; O2SAT 96–100; BMI 32.1
--- NOTE | ~2021-08-28 | CT_ITS ---
EXAMINATION: CT ABDOMEN AND PELVIS WITH CONTRAST CLINICAL INFORMATION: Epigastric pain COMPARISON: Previous CT of the abdomen and pelvis September 2020 and abdominal ultrasound from earlier the same day TECHNIQUE: Multidetector volumetric images were obtained from the superior aspect of the liver through the pubic symphysis following administration 85 mL of Omnipaque 350 intravenous contrast. Sagittal and coronal reformatted images were obtained on the technologist's workstation. Oral contrast: Yes This CT examination was performed using dose optimization techniques as appropriate, variously including the following: *Automated exposure control *Adjustment of mA and/or kV according to patient size (this includes techniques or standardized protocols for targeted exams where dose is matched to indication/reason for exam; i.e. extremities or head) *Use of iterative reconstruction technique DLP: 705 mGy-cm FINDINGS: LUNG BASES: The visualized lung bases are unremarkable. LIVER, GALLBLADDER, AND BILIARY TREE: The liver is enlarged and low in attenuation suggestive of fatty infiltration. No focal liver lesion is seen. Intrahepatic bile ducts are normal in caliber. There is mild dilatation of the common bile duct measuring 9 mm. This is similar to previous exam. No common bile duct stone is appreciated by CT. The gallbladder is unremarkable with no evidence of radiopaque gallstones, gallbladder wall thickening, or obvious pericholecystic inflammatory changes. PANCREAS: The pancreas is normal in size and enhances normally. There is a small amount of fluid seen surrounding the pancreas and stranding of the peripancreatic fat. Findings are suggestive of mild acute pancreatitis. The main pancreatic duct does not appear dilated. SPLEEN: Unremarkable. ADRENAL GLANDS: Unremarkable. KIDNEYS AND URETERS: The kidneys are normal in size, shape, and attenuation. No hydronephrosis, hydroureter, or calculi seen. No perinephric stranding. BLADDER: Unremarkable. GASTROINTESTINAL TRACT: The small and large bowel are unremarkable. The base of the appendix is normal in caliber and filled with air. The tip of the appendix is slightly prominent measuring 1 cm and not filled with air. The surrounding periappendiceal fat is normal. ABDOMINAL WALL: No significant hernia is appreciated. LYMPH NODES: Normal. VASCULAR: Unremarkable. PELVIC VISCERA: Unremarkable. OSSEOUS STRUCTURES: Unremarkable. CT/CT abdomen pelvis w con IMPRESSION: Mild pancreatitis. Enlarged fatty liver. Mild dilatation of the common bile duct. Findings are similar to September 2020 exam. Abnormal appearing tip of the appendix. This is also similar to September 2020 exam. Chronic tip appendicitis or other process such as mucocele or potential solid neoplasm of the appendix should be excluded.
--- NOTE | ~2021-08-28 | US_ITS ---
EXAMINATION: US ABDOMEN LIMITED CLINICAL INFORMATION: Right upper quadrant/epigastric pain. COMPARISON: 10/25/2020 TECHNIQUE: Real-time imaging of the right upper quadrant abdominal viscera. FINDINGS: PANCREAS: Heterogeneous appearance of the parenchyma again noted. LIVER: The liver is normal in size. The liver contour is normal. There is increased liver parenchymal echogenicity, consistent with hepatic steatosis. Focal sparing is noted near the gallbladder. No focal hepatic lesion. There is no intrahepatic biliary duct dilatation seen. GALLBLADDER: The gallbladder is physiologically distended without evidence of stones, sludge, polyps, wall thickening or pericholecystic fluid. Sonographic Greene sign is reportedly negative. COMMON BILE DUCT: Mildly dilated, measuring 0.9 cm in diameter. RIGHT KIDNEY: No hydronephrosis. No renal calculi or focal parenchymal lesions. The kidney measures 11.9 cm in maximum dimension. FREE FLUID: None. US/US abdomen limited IMPRESSION: 1. Mildly dilated common bile duct, of uncertain clinical significance. No gallstones are visualized. If clinically warranted, consider assessment with MRCP. 2. Hepatic steatosis.
[2021-08-28 03:19] LABS: Basophils Absolute Auto 0.1 X10*3/uL (0.0-0.2); Basophils Percent Auto 0.4 % (0-2); Mean Corpuscular HGB Conc 33.2 g/dl (31.0-35.0); PLT CLUMP 1; Red Cell Distribution Width 16.4 % (11.0-16.0); SCAN SMEAR FLAG 1
[2021-08-28 03:21] LABS: Eosinophils Absolute Auto 0.6 X10*3/uL (0.0-0.4); Eosinophils Percent Auto 4.9 % (0-4); Hematocrit 41.6 % (37-47); Hemoglobin 13.8 g/dl (12.0-16.0); Imm Gran Abs Auto 0.04 X10*3/uL (0.00-0.03); Imm Gran Pct Auto 0.3 % (0.0-0.4); Lymphocytes Absolute Auto 2.6 X10*3/uL (1.2-4.9); Lymphocytes Percent Auto 20.8 % (20-40); MANUAL DIFF FLAG NO; Mean Corpuscular Hemoglobin 33.1 pg (27.0-33.0); Mean Corpuscular Volume 99.8 fL (80-98); Mean Platelet Volume 12.3 fL (9.4-12.3); Monocytes Absolute Auto 1.1 X10*3/uL (0.1-1.2); Monocytes Percent Auto 8.9 % (2-11); Neutrophils Absolute Auto 8.1 X10*3/uL (2.0-8.3); Neutrophils Percent Auto 64.7 % (45-73); Red Blood Count 4.17 X10*6/uL (4.20-5.50); White Blood Count 12.5 X10*3/uL (4.8-10.8)
[2021-08-28 03:38] LABS: Platelet Count 140 X10*3/uL (160-400)
[2021-08-28 03:39] LABS: Alanine Aminotransferase 89 U/L (0-31); Alkaline Phosphatase 195 U/L (39-117); Anion Gap 18 (12-20); Aspartate Amino Transferase 171 U/L (5-31); Bilirubin Direct 0.7 mg/dL (0.0-0.5); Blood Urea Nitrogen 5 mg/dL (9-16); Calcium 9.7 mg/dL (8.4-10.2); Carbon Dioxide 24 mmol/L (22-29); Chloride 101 mmol/L (96-108); Creatinine Clr Calc Pharmacy 106.9; Estimated Glomerular Filt Rate > 60; Glucose Random 101 mg/dL (60-115); Lipase 1050 U/L (8-78); Potassium 4.8 mmol/L (3.3-5.1); Sodium 138 mmol/L (135-145); Total Protein 8.1 g/dL (6.5-8.0)
[2021-08-28 03:45] LABS: Appearance Urine HAZY; Color Urine YELLOW; Glucose Urine UA NEG (NEG); Leukocyte Esterase Urine NEG (NEG); Nitrite Urine NEG (NEG); Specific Gravity - Urine 1.015 (1.005-1.025); UACC Culture Trigger NO; Urine Blood NEG (NEG); Urine Ketones NEG (NEG); Urine Protein NEG (NEG-TRACE)
[2021-08-28 03:47] LABS: UPreg QC Valid YES; Urine Pregnancy NEGATIVE (NEGATIVE)
--- NOTE | 2021-08-28 04:40 | ED.ABDPAIN ---
HPI - Abdominal Pain General Chief Complaint: Abdominal Pain Stated Complaint: stomach pain Time Seen by Provider: 08/28/21 03:39 Source: patient Mode of arrival: ambulatory History of Present Illness HPI narrative: 40-year-old female without significant past medical history presents with onset of significant nausea/vomiting that began this morning with right upper quadrant/epigastric pain that radiated into her right back, and patient states she did last drink alcohol evening. Patient states then throughout the day she has been nauseous with chills and significant right upper quadrant pain and states that she still has her gallbladder in is never been informed that she has gallstones. Otherwise, she denies any shortness of breath/chest pain/palpitations/ symptoms. Related Data Home Medications Medication Instructions Recorded Confirmed methadone 10 mg/mL oral concentrate 78 mg PO DAILY ml 07/12/21 07/21/21 Previous Rx's Medication Instructions Recorded cholecalciferol (vitamin D3) 1,250 1,250 mcg PO QWEEK #14 cap 02/14/21 mcg (50,000 unit) capsule rivaroxaban 15 mg tablet (Xarelto) 15 mg PO BID #180 tab 05/20/21 folic acid 1 mg tablet 1 mg PO DAILY #90 tab 06/10/21 metoprolol tartrate 100 mg tablet 100 mg PO BID #180 tab 06/22/21 bupropion HCl 150 mg tablet,12 hr 150 mg PO Q12H #180 cap 07/13/21 sustained-release pantoprazole 20 mg tablet,delayed 20 mg PO DAILY #90 tab 07/16/21 release albuterol sulfate 90 mcg/actuation 2 puff INHALATION QID PRN 30 Days 07/26/21 aerosol inhaler #6.7 g oxycodone 5 mg tablet 5 mg PO Q6H PRN #10 tab 08/18/21 Allergies Allergy/AdvReac Type Severity Reaction Status Date / Time No Known Allergies Allergy Verified 08/18/21 07:43 Review of Systems Review of Systems Pertinent positives and negatives as stated in HPI 10 point review of systems is otherwise negative. Physical Exam Vital Signs: Vital Signs: Last Vital Signs Temp 97.8 F 08/28/21 07:37 Pulse 73 08/28/21 07:37 Resp 13 08/28/21 07:37 BP 105/72 08/28/21 07:37 Pulse Ox 97 08/28/21 07:37 Body Mass Index 32.1 VITAL SIGNS: Reviewed. GENERAL: Well developed, well nourished, in no acute distress. HEAD: Normocephalic/atraumatic EYES: PERRLA, EOMI OROPHARYNX: no oral lesions noted, posterior pharynx clear LUNGS: Normal breath sounds. No adventitious sounds or accessory muscle use. SpO2<96> CARDIOVASCULAR: Regular rate and rhythm without noted murmurs, no JVD or lower extremity edema. ABDOMEN: Soft, exquisitely tender in the right upper quadrant/epigastrium without rebound, non-distended with bowel sounds. SKIN: Inspection of the skin reveals no rashes NEUROLOGIC: Alert and oriented x 4. Course Course Course Narrative: This is a 40-year-old female with history and clinical presentation consistent with after reviewing all laboratory investigations pancreatitis, however unclear whether not this is secondary to gallstones or alcohol or a combination thereof. Patient will receive IV fluids and then ultrasound to better identify the source of patient's pancreatitis. Review of all investigations consistent with acute pancreatitis and after the ultrasound findings were reviewed which does not identify any gallstones and instead demonstrate significant fatty infiltration of the liver most consistent with patient's known history of alcohol use. Therefore, patient will be admitted to the inpatient hospitalist for acute alcoholic pancreatitis and though the CBD was noted to be dilated this is only a mild increase from prior. Patient is receiving pain medication, IV fluid boluses is been placed on a CIWA protocol. CT scan is pending to better evaluate patient's pancreas. MDM - Abdominal Pain Lab Data Result diagrams: 08/28/21 03:12 08/28/21 03:12 Labs: Lab Results 08/28/21 08/28/21 08/28/21 Range/Units 03:12 03:12 03:40 WBC 12.5 H (4.8-10.8) X10*3/uL RBC 4.17 L (4.20-5.50) X10*6/uL Hgb 13.8 (12.0-16.0) g/dl Hct 41.6 (37-47) % MCV 99.8 H (80-98) fL MCH 33.1 H (27.0-33.0) pg MCHC 33.2 (31.0-35.0) g/dl RDW 16.4 H (11.0-16.0) % Plt Count 140 L D (160-400) X10*3/uL MPV 12.3 (9.4-12.3) fL Immature Gran % (Auto) 0.3 (0.0-0.4) % Neut % (Auto) 64.7 (45-73) % Lymph % (Auto) 20.8 (20-40) % [place] % (Auto) 8.9 (2-11) % Eos % (Auto) 4.9 H (0-4) % Baso % (Auto) 0.4 (0-2) % Lymph # (Auto) 2.6 (1.2-4.9) X10*3/uL [place] # (Auto) 1.1 (0.1-1.2) X10*3/uL Eos # (Auto) 0.6 H (0.0-0.4) X10*3/uL Baso # (Auto) 0.1 (0.0-0.2) X10*3/uL Abs Immat Gran (auto) 0.04 H (0.00-0.03) X10*3/uL Absolute Neuts (auto) 8.1 (2.0-8.3) X10*3/uL Absolute Nucleated RBC 0.000 (0.0-0.012) X10*3/uL Nucleated RBC % (auto) 0.0 (0.0-0.2) /100WBC Sodium 138 (135-145) mmol/L Potassium 4.8 (3.3-5.1) mmol/L Chloride 101 (96-108) mmol/L Carbon Dioxide 24 (22-29) mmol/L Anion Gap 18 (12-20) BUN 5 L D (9-16) mg/dL Creatinine 0.78 (0.5-1.4) mg/dL Estim Creat Clear Calc 106.9 Estimated GFR > 60 Random Glucose 101 (60-115) mg/dL Calcium 9.7 (8.4-10.2) mg/dL Total Bilirubin 2.0 H (0.0-1.0) mg/dL Direct Bilirubin 0.7 H (0.0-0.5) mg/dL AST 171 H (5-31) U/L ALT 89 H (0-31) U/L Alkaline Phosphatase 195 H (39-117) U/L Total Protein 8.1 H (6.5-8.0) g/dL Albumin 4.0 (3.5-5.0) g/dL Triglycerides 298 mg/dL Cholesterol 262 D mg/dL LDL Cholesterol, Calc 178 mg/dl HDL Cholesterol 25 D mg/dL Lipase 1050 H (8-78) U/L Urine Color YELLOW Urine Appearance HAZY Urine pH 7.0 (5.0-8.0) Ur Specific [place] 1.015 (1.005-1.025) Urine Protein NEG (NEG-TRACE) MG/DL Urine Glucose (UA) NEG (NEG) MG/DL Urine Ketones NEG (NEG) MG/DL Urine Blood NEG (NEG) Urine Nitrite NEG (NEG) Ur Leukocyte Esterase NEG (NEG) Urine Test (NEGATIVE) COVID-19 (ROSIE) (Negative) COVID-19 Clin Com 08/28/21 08/28/21 Range/Units 03:40 05:43 WBC (4.8-10.8) X10*3/uL RBC (4.20-5.50) X10*6/uL Hgb (12.0-16.0) g/dl Hct (37-47) % MCV (80-98) fL MCH (27.0-33.0) pg MCHC (31.0-35.0) g/dl RDW (11.0-16.0) % Plt Count (160-400) X10*3/uL MPV (9.4-12.3) fL Immature Gran % (Auto) (0.0-0.4) % Neut % (Auto) (45-73) % Lymph % (Auto) (20-40) % [place] % (Auto) (2-11) % Eos % (Auto) (0-4) % Baso % (Auto) (0-2) % Lymph # (Auto) (1.2-4.9) X10*3/uL [place] # (Auto) (0.1-1.2) X10*3/uL Eos # (Auto) (0.0-0.4) X10*3/uL Baso # (Auto) (0.0-0.2) X10*3/uL Abs Immat Gran (auto) (0.00-0.03) X10*3/uL Absolute Neuts (auto) (2.0-8.3) X10*3/uL Absolute Nucleated RBC (0.0-0.012) X10*3/uL Nucleated RBC % (auto) (0.0-0.2) /100WBC Sodium (135-145) mmol/L Potassium (3.3-5.1) mmol/L Chloride (96-108) mmol/L Carbon Dioxide (22-29) mmol/L Anion Gap (12-20) BUN (9-16) mg/dL Creatinine (0.5-1.4) mg/dL Estim Creat Clear Calc Estimated GFR Random Glucose (60-115) mg/dL Calcium (8.4-10.2) mg/dL Total Bilirubin (0.0-1.0) mg/dL Direct Bilirubin (0.0-0.5) mg/dL AST (5-31) U/L ALT (0-31) U/L Alkaline Phosphatase (39-117) U/L Total Protein (6.5-8.0) g/dL Albumin (3.5-5.0) g/dL Triglycerides mg/dL Cholesterol mg/dL LDL Cholesterol, Calc mg/dl HDL Cholesterol mg/dL Lipase (8-78) U/L Urine Color Urine Appearance Urine pH (5.0-8.0) Ur Specific [place] (1.005-1.025) Urine Protein (NEG-TRACE) MG/DL Urine Glucose (UA) (NEG) MG/DL Urine Ketones (NEG) MG/DL Urine Blood (NEG) Urine Nitrite (NEG) Ur Leukocyte Esterase (NEG) Urine Test NEGATIVE (NEGATIVE) COVID-19 (ROSIE) Negative (Negative) COVID-19 Clin Com See Note Discharge Plan Discharge Clinical Impression: Acute pancreatitis, Alcohol abuse, Chronic appendicitis Patient Disposition: Admitted As Inpatient [facility] Past Medical History Source: nursing notes reviewed Medical History Acute deep vein thrombosis (DVT) of right lower extremity Alcohol abuse Asthma GERD (gastroesophageal reflux disease) Hypertension Left breast lump Screening for breast cancer SVT (supraventricular tachycardia) Surgical History History of excision of pilonidal cyst No history of previous surgery S/P lumpectomy, left breast (10/20/21) Family History Family History Mother Substance abuse Father No problems noted. Maternal Aunt Cancer of unknown origin Social History Social History Household Members: Family Housing: Apartment Do you presently have visiting nurse or other home services: No Alcohol intake: never Patient Tobacco Use Status: Current everyday Tobacco user Tobacco use type: Cigarette Cigarettes Per Day: 6 e-Cigarette/Vaping Use: Never Used Second Hand Smoke Exposure: No Use of substances other than those prescribed or required for medical reasons: No Advance Directives: No Advance Directives Information Provided: Yes Patient : No service: No Current occupational status: unemployed Current occupational exposures/hazards: No
[2021-08-28 04:58] LABS: Cholesterol 262 mg/dL; HDL Cholesterol 25 mg/dL; LDL Cholesterol Calculated 178 mg/dl; Triglycerides 298 mg/dL
[2021-08-28] MEDS: 0.9 % Sodium Chloride 2,000 ML 999 ML IV (05:04)
[2021-08-28] MEDS: Ketorolac Tromethamine 15 MG/ML VIAL IVPUSH (05:04)
[2021-08-28 06:04] LABS: COVID-19 Test Negative (Negative); IDNOW Serial# 9DD0AD1C
[2021-08-28] MEDS: iohexoL 350 MG/ML 100 ML INFUS..BTL 85 ML IV (06:48)
--- NOTE | 2021-08-28 08:00 | PC.NURSE ---
faxed clinic for methadone doseing
[2021-08-28] MEDS: Lactated Ringers 1,000 ML 150 ML IVCONT ×2 (11:08→17:52)
[2021-08-28] MEDS: Acetaminophen 325 MG TABLET 650 MG PO ×2 (12:27→17:51)
--- NOTE | 2021-08-28 14:22 | PC.NURSE ---
pt asleep at this time. previously given Tylenol for 7/10 Abdominal pain
--- NOTE | 2021-08-28 15:07 | PM.IMHP ---
History of Present Illness Date of Service: 08/28/21 <Jo Ann García NP - Last Filed: 08/28/21 15:48> Chief Complaint: Abdominal pain <Jo Ann García NP - Last Filed: 08/28/21 15:48> 40-year-old woman presented to the ER with nausea, vomiting and abdominal pain to the right upper quadrant epigastric area. She does have history pancreatitis in the past. She drinks alcohol on . She denied any recent travel, sick contacts. Abdominal CT showed mild pancreatitis with enlarged fatty liver and mild dilatation of the common bile duct , hepatic steatosis. White blood cell count mildly elevated at 12.5, total bilirubin 2.0, elevated AST and ALT, lipase 1050. her vital signs are stable wound she was not noted to have any fever. In the ER she was given IV fluids, Toradol. She will be admitted for further management and treatment of acute pancreatitis. <Jo Ann García NP - Last Filed: 08/28/21 15:48> Review of Systems Review of Systems: Denies any recent fever chills or decrease in appetite respiratory denies any shortness of breath coverage production cardiovascular denies chest pain gastrointestinal see HPI genitourinary denies any dysuria frequency or hematuria musculoskeletal denies any joint pain or swelling neuropsych denies any weakness or seizures all other systems reviewed are negative <Jo Ann García NP - Last Filed: 08/28/21 15:48> [facility] Medical History: Medical History Acute deep vein thrombosis (DVT) of right lower extremity Alcohol abuse Asthma GERD (gastroesophageal reflux disease) Hypertension Left breast lump Screening for breast cancer SVT (supraventricular tachycardia) <Jo Ann García NP - Last Filed: 08/28/21 15:48> Family History: Family History Mother Substance abuse Father No problems noted. Maternal Aunt Cancer of unknown origin <Jo Ann García NP - Last Filed: 08/28/21 15:48> Pertinent family history: . <Jo Ann García NP - Last Filed: 08/28/21 15:48> Surgical History: Surgical History History of excision of pilonidal cyst No history of previous surgery S/P lumpectomy, left breast (08/18/21) <Jo Ann García NP - Last Filed: 08/28/21 15:48> Social History: Social History Household Members: Family Housing: Apartment Do you presently have visiting nurse or other home services: No Alcohol intake: never Patient Tobacco Use Status: Current everyday Tobacco user Tobacco use type: Cigarette Cigarettes Per Day: 6 e-Cigarette/Vaping Use: Never Used Second Hand Smoke Exposure: No Use of substances other than those prescribed or required for medical reasons: No Advance Directives: No Advance Directives Information Provided: Yes Patient : No service: No Current occupational status: unemployed Current occupational exposures/hazards: No <Jo Ann García NP - Last Filed: 08/28/21 15:48> Meds Allergies/Adverse reactions: Allergies Allergy/AdvReac Type Severity Reaction Status Date / Time No Known Allergies Allergy Verified 08/18/21 07:43 <Jo Ann García NP - Last Filed: 08/28/21 15:48> Active Medications: Current Medications Acetaminophen (Acetaminophen 325 Mg Tablet) 650 mg PO Q6H PRN PRN Reason: Pain, Mild (Pain Scale 1-3) Last Admin: 08/28/21 12:27 Dose: 650 mg Documented by: Lactated Ringer's (Lr) 1,000 mls @ 150 mls/hr IVCONT .[id number] JEFF Last Admin: 08/28/21 11:08 Dose: 150 mls/hr Documented by: Ondansetron HCl (Ondansetron Hcl 4 Mg/2 Ml Vial) 4 mg IVPUSH Q8H PRN PRN Reason: Nausea and Vomiting Sodium Chloride (0.9 % Sodium Chloride Flush 3 Ml Syringe) 3 ml IVFLUSH QSHIFT JEFF <Jo Ann García NP - Last Filed: 08/28/21 15:48> Home medications: Home Medications Medication Instructions Recorded Confirmed Last Taken Type methadone 10 mg/mL oral concentrate 79 mg PO DAILY ml 07/12/21 08/28/21 08/18/21 06:00 History <Jo Ann García NP - Last Filed: 08/28/21 15:48> Physical Exam Vital Signs and Narrative: Vital Signs: Last Vital Signs Temp 98.1 F 08/28/21 14:32 Pulse 71 08/28/21 14:32 Resp 16 08/28/21 14:32 BP 130/79 08/28/21 14:32 Pulse Ox 98 08/28/21 14:32 Body Mass Index 32.1 <Jo Ann García NP - Last Filed: 08/28/21 15:48> Appearing in no acute distress head is normocephalic atraumatic eyes pupils are PERRLA sclera is anicteric mouth throat mucous membranes are intact and moist neck is supple no lymphadenopathy, no JVD noted lung sounds are clear to auscultation heart regular rate rhythm, clear S1, S2 positive bowel sounds, abdomen is soft, nontender neuro patient is alert x3, no focal deficits <Jo Ann García NP - Last Filed: 08/28/21 15:48> Results Labs CBC and Chem 7: : 08/28/21 03:12 08/28/21 03:12 <Jo Ann García NP - Last Filed: 08/28/21 15:48> Labs: Laboratory Results - last 24 hr 08/28/21 08/28/21 08/28/21 03:12 03:12 03:40 MCV 99.8 H MCH 33.1 H MCHC 33.2 RDW 16.4 H Plt Count 140 L D MPV 12.3 Immature Gran % (Auto) 0.3 Neut % (Auto) 64.7 Lymph % (Auto) 20.8 [place] % (Auto) 8.9 Eos % (Auto) 4.9 H Baso % (Auto) 0.4 Lymph # (Auto) 2.6 [place] # (Auto) 1.1 Eos # (Auto) 0.6 H Baso # (Auto) 0.1 Abs Immat Gran (auto) 0.04 H Absolute Neuts (auto) 8.1 Absolute Nucleated RBC 0.000 Nucleated RBC % (auto) 0.0 Anion Gap 18 Estim Creat Clear Calc 106.9 Estimated GFR > 60 Random Glucose 101 Calcium 9.7 Total Bilirubin 2.0 H Direct Bilirubin 0.7 H AST 171 H ALT 89 H Alkaline Phosphatase 195 H Total Protein 8.1 H Albumin 4.0 Triglycerides 298 Cholesterol 262 D LDL Cholesterol, Calc 178 HDL Cholesterol 25 D Lipase 1050 H Urine Color YELLOW Urine Appearance HAZY Urine pH 7.0 Ur Specific [place] 1.015 Urine Protein NEG Urine Glucose (UA) NEG Urine Ketones NEG Urine Blood NEG Urine Nitrite NEG Ur Leukocyte Esterase NEG Urine Test COVID-19 (ROSIE) COVID-19 Clin Com 08/28/21 08/28/21 03:40 05:43 MCV MCH MCHC RDW Plt Count MPV Immature Gran % (Auto) Neut % (Auto) Lymph % (Auto) [place] % (Auto) Eos % (Auto) Baso % (Auto) Lymph # (Auto) [place] # (Auto) Eos # (Auto) Baso # (Auto) Abs Immat Gran (auto) Absolute Neuts (auto) Absolute Nucleated RBC Nucleated RBC % (auto) Anion Gap Estim Creat Clear Calc Estimated GFR Random Glucose Calcium Total Bilirubin Direct Bilirubin AST ALT Alkaline Phosphatase Total Protein Albumin Triglycerides Cholesterol LDL Cholesterol, Calc HDL Cholesterol Lipase Urine Color Urine Appearance Urine pH Ur Specific [place] Urine Protein Urine Glucose (UA) Urine Ketones Urine Blood Urine Nitrite Ur Leukocyte Esterase Urine Test NEGATIVE COVID-19 (ROSIE) Negative COVID-19 Clin Com See Note <Jo Ann García NP - Last Filed: 08/28/21 15:48> Imaging Radiologist's Impressions: Impressions Abdomen Ultrasound 08/28/21 04:40 IMPRESSION: 1. Mildly dilated common bile duct, of uncertain clinical significance. No gallstones are visualized. If clinically warranted, consider assessment with MRCP. 2. Hepatic steatosis. Abdomen/Pelvis CT 08/28/21 05:51 IMPRESSION: Mild pancreatitis. Enlarged fatty liver. Mild dilatation of the common bile duct. Findings are similar to September 2020 exam. Abnormal appearing tip of the appendix. This is also similar to September 2020 exam. Chronic tip appendicitis or other process such as mucocele or potential solid neoplasm of the appendix should be excluded. <Jo Ann García NP - Last Filed: 08/28/21 15:48> Assessment and Plan (1) Acute pancreatitis: Status: Acute <Jo Ann García NP - Last Filed: 08/28/21 15:48> (2) Transaminitis: Status: Acute <Jo Ann García NP - Last Filed: 08/28/21 15:48> 40 year old women admitted with acute pancreatitis, last alcoholic drink as patient reports. Acute pancreatitis IV fluid hydration Clear liquid diet GI consultation Pain management Supportive care Transaminitis. ? passed stone GI consultation No stones noted on ultrasound or CT scan however she does have a mildly dilated CBD Trend History of substance abuse Continue methadone History of SVT/tachycardia Continue metoprolol Mental health Continue home medications History of DVT No longer on Xarelto DVT prophylaxis with Lovenox Attending Dr. Parra Full code <Jo Ann García NP - Last Filed: 08/28/21 15:48> 40 year old women admitted with acute pancreatitis, last alcoholic drink as patient reports. Acute pancreatitis IV fluid hydration Clear liquid diet GI consultation Pain management Supportive care Transaminitis. ? passed stone GI consultation No stones noted on ultrasound or CT scan however she does have a mildly dilated CBD Trend History of substance abuse Continue methadone History of SVT/tachycardia Continue metoprolol Mental health Continue home medications History of DVT No longer on Xarelto DVT prophylaxis with Lovenox Attending Dr. Parra Full code ATTENDING ADDENDUM: I saw and evaluated the patient .? The case was discussed with midlevel provider . I personally reviewed the HPI, PH, FH, SH, ROS and medications. I repeated pertinent portions of the examination and reviewed the relevant imaging and laboratory data. I agree with the findings, assessment and plan as documented. At this time, based on her current clinical condition and treatment, I expect the patient to remain in the hospital less than 3 days. Will keep NPO, hydrate and follow serial abd exam. O/w I agree with above. . TM. <Preston Parra MD - Last Filed: 08/28/21 16:19> Quality Stroke Does the patient have a stroke diagnosis?: No <Jo Ann García NP - Last Filed: 08/28/21 15:48> VTE Prior VTE?: No <Jo Ann García NP - Last Filed: 08/28/21 15:48> VTE Risk Level:: Medical - moderate - high <Jo Ann García NP - Last Filed: 08/28/21 15:48> VTE Device Contraindication: Treatment Not Indicated <Jo Ann García NP - Last Filed: 08/28/21 15:48> VTE Drug Contraindication: N/A - Med Ordered <Jo Ann García NP - Last Filed: 08/28/21 15:48>
[2021-08-28] MEDS: Enoxaparin Sodium 40 MG/0.4 ML SYRINGE SUBCUT (16:55)
[2021-08-28] MEDS: ondansetron HCL 4 MG/2 ML VIAL IVPUSH (17:34)
--- NOTE | 2021-08-28 18:12 | PM.EVENT ---
Event Note Date of Service: 08/28/21 Event Note: Imp: EtOH-induced pancreatitis and hepatitis based on her clinical history and negative GB U/S. Her CT and clinical appearance do not appear worrisome. Rec: Continue supportive care, F/U labs in AM, and advance diet slowly as tolerated. I have advised patient of the need to stay off all alcohol detention. She understood and was comfortable with this plan. Thanks
--- NOTE | 2021-08-28 21:31 | CONS_ITS ---
DATE OF SERVICE: 08/28/2021 REASON FOR CONSULTATION: Pancreatitis and elevated LFTs. HISTORY OF PRESENT ILLNESS: The patient is a 40-year-old female, who has a history of alcohol use and describes drinking at least 3 beers on the day prior to admission. She was admitted here at the end of 2019 with what appeared to be alcohol-induced pancreatitis at that time. She reports that she had been feeling well up until the morning of this admission when she developed the onset of some upper abdominal pain with associated nausea and vomiting. This worsened when she tried to eat. She did not notice any hematemesis nor coffee-grounds emesis. She denies any jaundice. She denies any diarrhea, hematochezia, nor melena. She has not noticed any increase in abdominal girth nor edema. She denies any current use of drugs, although is on chronic methadone at home. Since admission here yesterday, she does report that she is feeling better today, but she is still having some upper abdominal pain, but has had no further vomiting. She is having some sips of clear liquids. She denies any known family history of pancreatitis nor liver disease. She has not been on any new medication. MEDICATIONS: Her present medications at home have included albuterol inhaler, Wellbutrin, methadone, metoprolol, pantoprazole. Her medications here in the hospital include albuterol, Wellbutrin, Lovenox, folic acid, metoprolol, morphine p.r.n., omeprazole, and Zofran. PAST MEDICAL HISTORY: She had a recent breast cyst removed by Dr. Wagoner on August 18. She just had surgery for pilonidal cyst. She does have asthma, hypertension, gastroesophageal reflux, depression, and previous history of substance abuse. Alcohol abuse. History of SVT. History of DVT. SOCIAL HISTORY: She drinks at least several beers several times per week by her admission. She does smoke. FAMILY HISTORY: Noncontributory. REVIEW OF SYSTEMS: CONSTITUTIONAL: Up until the day before admission, she was feeling well with good energy and good appetite. SKIN: No rash. No pruritus. CARDIAC: No chest pain. PULMONARY: No cough or hemoptysis. GASTROINTESTINAL: As above. PHYSICAL EXAMINATION: GENERAL: The patient is a pleasant, alert female, in no distress. SKIN: Warm and dry. Anicteric sclerae. NECK: Supple without lymphadenopathy. CHEST: Clear. CARDIAC: Normal S1 and S2. ABDOMEN: Soft, nondistended. Normal bowel sounds with some mild diffuse tenderness, but without mass, rebound, or guarding. EXTREMITIES: Without edema. LABORATORY DATA: White blood cell count 12.5, hemoglobin 13.8, platelets 140,000. Normal electrolytes. BUN 5, creatinine 0.8, total bilirubin 2.0, direct bilirubin 0.7, AST 171, ALT 89, alkaline phosphatase 195. LFTs on August 17 revealed an AST of 188 and ALT of 84, and alkaline phosphatase of 169 with a normal bilirubin. Albumin 4.0. Lipase 1050. Hepatitis C was negative in September 2020. COVID was negative on this admission. She had an ultrasound of her abdomen this morning describing a normal-appearing gallbladder without any sign of stones. Common bile duct was 9 mm. The liver appeared normal, without any sign of intrahepatic bile duct dilatation. There was no ascites. CAT scan of the abdomen revealed a fatty liver and unremarkable gallbladder. There was a small amount of fluid seen surrounding the pancreas with some stranding of the peripancreatic fat suggestive of mild acute pancreatitis. These findings were similar to the CAT scan in September 2020 when she was admitted for pancreatitis. IMPRESSION: Given the patient's clinical history, this certainly seems consistent with another episode of alcohol-induced pancreatitis as well as alcohol-induced hepatitis based on her laboratories. Given the negative gallbladder ultrasound, I do not think the mild dilatation of the common bile duct seen on the imaging studies is of any clinical significance and may be it is a result of the edema in the region of the head of the pancreas. I do not think this requires an MRCP nor ERCP for further evaluation at this time. At this point, her alcohol-induced pancreatitis and hepatitis both seem mild and I would simply continue supportive care and follow up laboratories in the morning. I think her diet can be advanced as tolerated based on her pain and laboratories. I did review with the patient the need to stay off all alcohol long-term, including beer, given the issues that she is having with the alcohol-induced hepatitis and pancreas. She understood this and was comfortable with this plan. Thank you for the consultation. MD REINA Powell/ERICK / [id number]
[2021-08-28] MEDS: Metoprolol Tartrate 100 MG TABLET PO (22:21)
[2021-08-29] MEDS: Lactated Ringers 1,000 ML 150 ML IVCONT (02:09)
[2021-08-29] MEDS: Morphine Sulfate 2 MG/ML CARTRIDGE IVPUSH ×2 (02:31→08:26)
[2021-08-29 06:57] LABS: MANUAL DIFF FLAG NO
[2021-08-29 07:02] LABS: Basophils Percent Auto 0.5 % (0-2); Eosinophils Absolute Auto 0.5 X10*3/uL (0.0-0.4); Eosinophils Percent Auto 6.1 % (0-4); Hematocrit 31.8 % (37.0-47.0); Hemoglobin 10.6 g/dl (12.0-16.0); Imm Gran Abs Auto 0.02 X10*3/uL (0.00-0.03); Imm Gran Pct Auto 0.3 % (0.0-0.4); Lymphocytes Absolute Auto 2.7 X10*3/uL (1.2-4.9); Lymphocytes Percent Auto 34.8 % (20-40); Mean Corpuscular HGB Conc 33.3 g/dl (31.0-35.0); Mean Corpuscular Volume 99.1 fL (80.0-98.0); Mean Platelet Volume 12.1 fL (9.4-12.3); Monocytes Absolute Auto 0.9 X10*3/uL (0.1-1.2); Monocytes Percent Auto 11.9 % (2-11); Neutrophils Absolute Auto 3.61 x10*3/uL (2.0-8.3); Neutrophils Percent Auto 46.4 % (45-73); Platelet Count 158 X10*3/uL (160-400); Red Blood Count 3.21 X10*6/uL (4.20-5.50); Red Cell Distribution Width 16.3 % (11.0-16.0); White Blood Count 7.8 X10*3/uL (4.8-10.8)
[2021-08-29 07:18] LABS: INTERNATIONAL NORM RATIO 1.2 (0.9-1.1); Prothrombin Time 13.2 SEC (9.9-13.0)
[2021-08-29 07:36] LABS: Alanine Aminotransferase 52 U/L (0-31); Albumin Level 2.8 g/dL (3.5-5.0); Alkaline Phosphatase 128 U/L (39-117); Anion Gap 16 (12-20); Aspartate Amino Transferase 100 U/L (5-31); Bilirubin Direct 0.6 mg/dL (0.0-0.5); Bilirubin Total 1.7 mg/dL (0.0-1.0); Blood Urea Nitrogen 6 mg/dL (9-16); Calcium 8.2 mg/dL (8.4-10.2); Carbon Dioxide 21 mmol/L (22-29); Chloride 107 mmol/L (96-108); Creatinine Clr Calc Pharmacy 130.3; Estimated Glomerular Filt Rate > 60; Glucose Random 76 mg/dL (60-115); Sodium 139 mmol/L (135-145); Total Protein 5.8 g/dL (6.5-8.0)
[2021-08-29 07:58] LABS: Lipase 180 U/L (8-78)
[2021-08-29 08:00] VITALS: BP 126/89; PULSE 74; RESP 18; TEMP 36.5; O2SAT 99
[2021-08-29] MEDS: methADONE HCl 20 MG/2 ML ORAL.CONC 80 MG PO (08:18)
[2021-08-29] MEDS: Folic Acid 1 MG TABLET PO (08:20)
[2021-08-29 08:21] VITALS: BP 126/89; PULSE 74
[2021-08-29] MEDS: Omeprazole 20 MG CAPSULE.DR PO (08:21)
[2021-08-29] MEDS: buPROPion HCl XL 300 MG TAB.ER.24H PO (08:21)
[2021-08-29] MEDS: Metoprolol Tartrate 100 MG TABLET PO (08:21)
[2021-08-29] MEDS: 0.9 % Sodium Chloride Flush 3 ML SYRINGE IVFLUSH (08:25)
--- NOTE | 2021-08-29 10:16 | P.DS_ITS ---
DS: Providers Provider Date of Service: 08/29/21 <Jo Ann García NP - Last Filed: 08/29/21 15:47> Date of admission: 08/28/21 08:28 <Jo Ann García NP - Last Filed: 08/29/21 15:47> Primary care physician: Stanton Roberts MD <Jo Ann García NP - Last Filed: 08/29/21 15:47> Consults: 08/28/21 08:28 Consult to Gastroenterology Routine Consulting Provider: Eloy Rodriguez Reason for consultation: pancreatitis, elevated LFT Has provider been notified: No <Jo Ann García NP - Last Filed: 08/29/21 15:47> Attending physician on discharge: Preston Parra <Jo Ann García NP - Last Filed: 08/29/21 15:47> Discharging clinician: Jo Ann García <Jo Ann García NP - Last Filed: 08/29/21 15:47> DS: Diagnosis Discharge Diagnosis (1) Acute pancreatitis: Status: Resolved <J oAnn García NP - Last Filed: 08/29/21 15:47> (2) Transaminitis: Status: Acute <Jo Ann García NP - Last Filed: 08/29/21 15:47> DS: Summary Hospital Course Hospital Course: 40-year-old woman presented to the ER with nausea, vomiting and abdominal pain to the right upper quadrant epigastric area.? She does have history pancreatitis in the past.? She drinks alcohol on .? She denied any recent travel, sick contacts.? Abdominal CT showed mild pancreatitis with enlarged fatty liver and mild dilatation of the common bile duct , hepatic steatosis.? White blood cell count mildly elevated at 12.5, total bilirubin 2.0, elevated AST and ALT, lipase 1050. her vital signs are stable wound she was not noted to have any fever.? In the ER she was given IV fluids, Toradol.? She will be admitted for further management and treatment of acute pancreatitis. Alcohol-induced pancreatitis. Treated with IV fluids, pain medication. Patient was advanced to a regular diet did well, pain was significantly reduced. She was encouraged to stop drinking alcohol which is the culprit for her episodes of pancreatitis. She is agreeable hopefully she will continue to sees from alcohol intake. She is comfortable discharged today she will recheck her liver enzymes in 3 days they have continually trended down. <Jo Ann García NP - Last Filed: 08/29/21 15:47> Time Spent with Patient Time attestation: Total time spent providing and/or coordinating discharge services: <Jo Ann García NP - Last Filed: 08/29/21 15:47> Discharge coordination time: Greater than 30 minutes <Jo Ann García NP - Last Filed: 08/29/21 15:47> Quality: Stroke Does the patient have a stroke diagnosis?: No <Jo Ann García NP - Last Filed: 08/29/21 15:47> Physical Exam Vital Signs: Vital Signs: Last Vital Signs Temp 97.7 F 08/29/21 08:00 Pulse 74 08/29/21 08:21 Resp 18 08/29/21 08:00 BP 126/89 08/29/21 08:21 Pulse Ox 99 08/29/21 08:00 Body Mass Index 32.1 <Jo Ann García NP - Last Filed: 08/29/21 15:47> Appearing in no acute distress head is normocephalic atraumatic eyes pupils are PERRLA sclera is anicteric mouth throat mucous membranes are intact and moist neck is supple no lymphadenopathy, no JVD noted lung sounds are clear to auscultation heart regular rate rhythm, clear S1, S2 positive bowel sounds, abdomen is soft, nontender neuro patient is alert x3, no focal deficits <Jo Ann García NP - Last Filed: 08/29/21 15:47> DS: Data Data Completed and Pending Completed studies during hospitalization [Text1]: Procedures Detoxification Services for Substance Abuse Treatment (10/24/20) <Jo Ann García NP - Last Filed: 08/29/21 15:47> Labs on day of discharge: Laboratory Results - last 24 hr 08/29/21 08/29/21 08/29/21 06:27 06:27 06:27 WBC RBC Hgb Hct MCV MCH MCHC RDW Plt Count MPV Immature Gran % (Auto) Neut % (Auto) Lymph % (Auto) [place] % (Auto) Eos % (Auto) Baso % (Auto) Lymph # (Auto) [place] # (Auto) Eos # (Auto) Baso # (Auto) Abs Immat Gran (auto) Absolute Neuts (auto) Absolute Nucleated RBC Nucleated RBC % (auto) PT INR Sodium Cancelled 139 Potassium Cancelled 5.0 Chloride Cancelled 107 Carbon Dioxide Cancelled 21 L Anion Gap Cancelled 16 BUN Cancelled 6 L Creatinine Cancelled 0.64 Estim Creat Clear Calc Cancelled 130.3 Estimated GFR Cancelled > 60 Random Glucose Cancelled 76 Calcium Cancelled 8.2 L D Total Bilirubin 1.7 H Direct Bilirubin 0.6 H AST 100 H ALT 52 H Alkaline Phosphatase 128 H D Total Protein 5.8 L D Albumin 2.8 L D Lipase 180 H 08/29/21 08/29/21 06:28 06:28 WBC 7.8 RBC 3.21 L Hgb 10.6 L Hct 31.8 L MCV 99.1 H MCH 33.0 MCHC 33.3 RDW 16.3 H Plt Count 158 L MPV 12.1 Immature Gran % (Auto) 0.3 Neut % (Auto) 46.4 Lymph % (Auto) 34.8 [place] % (Auto) 11.9 H Eos % (Auto) 6.1 H Baso % (Auto) 0.5 Lymph # (Auto) 2.7 [place] # (Auto) 0.9 Eos # (Auto) 0.5 H Baso # (Auto) 0.0 Abs Immat Gran (auto) 0.02 Absolute Neuts (auto) 3.61 Absolute Nucleated RBC 0.000 Nucleated RBC % (auto) 0.0 PT 13.2 H INR 1.2 H Sodium Potassium Chloride Carbon Dioxide Anion Gap BUN Creatinine Estim Creat Clear Calc Estimated GFR Random Glucose Calcium Total Bilirubin Direct Bilirubin AST ALT Alkaline Phosphatase Total Protein Albumin Lipase <Jo Ann García NP - Last Filed: 08/29/21 15:47> Discharge Plan Discharge Anticipated Discharge Date/Time: 08/29/21 10:12 <Jo Ann García NP - Last Filed: 08/29/21 15:47> Patient Disposition: Home, Self-Care <Jo Ann García NP - Last Filed: 08/29/21 15:47> Discharge Diagnosis: Pancreatitis <Jo Ann García NP - Last Filed: 08/29/21 15:47> Pancreatitis <Preston aPrra MD - Last Filed: 09/03/21 10:58> Referrals: Stanton Roberts MD [Primary Care Provider] - 1 Week <Jo Ann García NP - Last Filed: 08/29/21 15:47> Discharge Medications: Continued cholecalciferol (vitamin D3) 1,250 mcg (50,000 unit) capsule 1,250 mcg PO QWEEK Qty: 14 RF: 1 Xarelto 15 mg tablet 15 mg PO BID Qty: 180 RF: 1 folic acid 1 mg tablet 1 mg PO DAILY Qty: 90 RF: 1 metoprolol tartrate 100 mg tablet 100 mg PO BID Qty: 180 RF: 1 bupropion HCl 150 mg tablet sustained-release 12 hr 150 mg PO Q12H Qty: 180 RF: 1 pantoprazole 20 mg tablet,delayed release (DR/EC) 20 mg PO DAILY Qty: 90 RF: 1 albuterol sulfate 90 mcg/actuation HFA aerosol inhaler 2 puff inhalation QID PRN (Reason: shortness of breath or wheezing) 30 Days Qty: 6.7 RF: 3 methadone 10 mg/mL concentrate 79 mg PO DAILY RF: 0 <Jo Ann García NP - Last Filed: 08/29/21 15:47> Discharge Orders: Discharge Order (Routine); Ordered 08/29/21 Ordered By: Jo Ann García <Jo Ann García NP - Last Filed: 08/29/21 15:47> Diet: advance to usual diet <Jo Ann García NP - Last Filed: 08/29/21 15:47> advance to usual diet <Preston Parra MD - Last Filed: 09/03/21 10:58> Activity on Discharge: As tolerated <Jo Ann García NP - Last Filed: 08/29/21 15:47> As tolerated <Preston Parra MD - Last Filed: 09/03/21 10:58> Stand Alone Forms: Patient Portal Discharge page <Jo Ann García NP - Last Filed: 08/29/21 15:47> Other Ambulatory Orders: Liver Panel (Routine) Timeframe: [id number] Facility: [facility] - Location: Laboratory Ordered By: Jo Ann García <Jo Ann García NP - Last Filed: 08/29/21 15:47> Care Plan Goals: Stop drinking alcohol <Jo Ann García NP - Last Filed: 08/29/21 15:47> Health Concerns: alcohol-induced pancreatitis <Jo Ann García NP - Last Filed: 08/29/21 15:47> Plan of Treatment: Follow-up with primary care provider as needed Checking labs at the end of the week <Jo Ann García NP - Last Filed: 08/29/21 15:47> Assessment: See discharge summary I saw the patient and discussed discharge plan and disposition with casey morales and I agree witht the above <Jo Ann García NP - Last Filed: 08/29/21 15:47> Discharge Date/Time: 08/29/21 15:48 <Jo Ann García NP - Last Filed: 08/29/21 15:47>
--- NOTE | 2021-08-29 10:19 | MHC.CM.PN ---
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
--- NOTE | 2021-08-29 14:39 | MHC.CM.PN ---
pt dcd home today no sjkilled services ordered by
[2021-08-29 15:21] VITALS: BP 151/84; PULSE 73; RESP 20; TEMP 36.1; O2SAT 93
== END 2021-08-29 15:48 | disposition home or self-care (01) | DRG 280 ==
LOC: HO.ED 06:49 → HO.EDOVER 08:36 → HO.IMC 18:12
PROVIDERS: Internal Medicine; Admitting Provider Nurse Practitioner Acute Care; Emergency Provider Student in an Organized Health Care Education/Training Program; PCP Internal Medicine; Visit Provider Nurse Practitioner Acute Care
DX: K70.10 Alcoholic hepatitis without ascites (principal); K85.90 Acute pancreatitis without necrosis or infection, unspecified; F11.20 Opioid dependence, uncomplicated; K86.0 Alcohol-induced chronic pancreatitis; I47.1 Supraventricular tachycardia; F39 Unspecified mood [affective] disorder; K76.0 Fatty (change of) liver, not elsewhere classified; F10.10 Alcohol abuse, uncomplicated; F17.210 Nicotine dependence, cigarettes, uncomplicated; K21.9 Gastro-esophageal reflux disease without esophagitis; Z20.822 Contact with and (suspected) exposure to COVID-19; Z86.718 Personal history of other venous thrombosis and embolism; Z71.6 Tobacco abuse counseling; Z79.01 Long term (current) use of anticoagulants; Z79.899 Other long term (current) drug therapy
CPT/HCPCS: 36415; 74177; 76705; 80048; 80053; 80061; 80076; 81003; 81025; 82248; 83690; 85025; 85610; 87635; 99219; 99285; J1650; J1885; J2270; J2405; Q9967

== ENCOUNTER 2022-05-19 08:05 | Outpatient (REF) | payer OTHER, SELFPAY ==
--- NOTE | 2022-05-19 08:08 | EMG_ITS ---
Bilateral median and ulnar motor and sensory studies were performed. Bilateral radial and sensory studies were performed and paraspinal muscles were tested with a needle. IMPRESSION: 1. Mild to moderate bilateral median neuropathy across carpal tunnel. 2. Mild right ulnar neuropathy across cubital tunnel. MD URIEL Pollock/ERICK / [phone]
== END 2022-05-19 08:06 | disposition home or self-care (01) ==
LOC: HO.NEURO 08:05
PROVIDERS: PCP Internal Medicine; Visit Provider Nurse Practitioner Family
DX: R20.0 Anesthesia of skin (principal)
CPT/HCPCS: 95886; 95911

== ENCOUNTER → 2022-07-20 13:57 | Outpatient (BNVA) | payer OTHER, SELFPAY | PROVIDERS: PCP Internal Medicine; Visit Provider Physician Assistant | DX: G56.03 Carpal tunnel syndrome, bilateral upper limbs (principal); G56.21 Lesion of ulnar nerve, right upper limb | CPT/HCPCS: 99202 ==

== ENCOUNTER → 2022-08-23 15:28 | Outpatient (BNVA) | payer OTHER, SELFPAY | PROVIDERS: PCP Internal Medicine; Visit Provider Orthopaedic Surgery | DX: G56.21 Lesion of ulnar nerve, right upper limb (principal); G56.03 Carpal tunnel syndrome, bilateral upper limbs | CPT/HCPCS: 99202 ==

== ENCOUNTER → 2022-11-09 14:56 | Outpatient (BNVA) | payer OTHER, SELFPAY | PROVIDERS: PCP Internal Medicine; Visit Provider Orthopaedic Surgery | DX: G56.03 Carpal tunnel syndrome, bilateral upper limbs (principal); G56.21 Lesion of ulnar nerve, right upper limb | CPT/HCPCS: 99212 ==

== ENCOUNTER 2023-04-20 17:00 | Emergency (ER) | payer OTHER, SELFPAY ==
--- NOTE | ~2023-04-20 | XR_ITS ---
EXAMINATION: XR WRIST, RIGHT CLINICAL INFORMATION: Wrist pain. COMPARISON: None available. TECHNIQUE: Four views of the right wrist. FINDINGS: No acute fractures or malalignment. No significant degenerative changes. No unexpected radiopaque foreign bodies. XR/XR wrist RT min 3V IMPRESSION: No discrete fracture or malalignment. If pain persists, recommend a follow-up radiograph or correlation with CT or MRI as early nondisplaced fractures could be radiographically occult.
[2023-04-20 17:18] VITALS: BP 144/105; PULSE 74; RESP 16; TEMP 36.8; O2SAT 98; BMI 32.6
--- NOTE | 2023-04-20 17:19 | ED.GENADULT ---
HPI - General Adult General Stated complaint: Right hand injury Related Data Home Medications Medication Instructions Recorded Confirmed methadone 10 mg/mL oral concentrate 60 mg PO DAILY 02/21/22 02/21/22 Previous Rx's Medication Instructions Recorded folic acid 1 mg tablet 1 mg PO DAILY #90 tabs 02/21/22 cholecalciferol (vitamin D3) 1,250 1,250 mcg PO QWEEK #14 caps 09/13/22 mcg (50,000 unit) capsule albuterol sulfate 90 mcg/actuation 2 puff inhalation QID PRN 12/16/22 aerosol inhaler shortness of breath or wheezing 30 days #6.7 grams bupropion HCl 150 mg tablet,12 hr 150 mg PO Q12H #180 caps 12/19/22 sustained-release pantoprazole 20 mg tablet,delayed 20 mg PO DAILY #90 tabs 01/22/23 release metoprolol tartrate 100 mg tablet 100 mg PO BID #180 tabs 01/27/23 Allergies Allergy/AdvReac Type Severity Reaction Status Date / Time No Known Allergies Allergy Verified 11/09/22 16:04 [facility] Past Medical History Medical History (Updated 11/09/22 @ 16:07 by Jesika Lara, CIELO) Acute deep vein thrombosis (DVT) of right lower extremity Alcohol abuse Asthma Chronic appendicitis Chronic neck pain Depression GERD (gastroesophageal reflux disease) H/O supraventricular tachycardia Hypertension Left breast lump Methadone use Numbness and tingling of both upper extremities On beta eri at home Screening for breast cancer SVT (supraventricular tachycardia) Surgical History History of excision of pilonidal cyst S/P lumpectomy, left breast Family History Family History Mother Substance abuse Father No problems noted. 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 to a significant other at home: Yes (3 year old) Do you presently have visiting nurse or other home services: No Alcohol intake: current Alcohol intake frequency: a few times a week Patient Tobacco Use Status: Current everyday Tobacco user Tobacco use type: Cigarette Cigarettes Per Day: 10 e-Cigarette/Vaping Use: Never Used Second Hand Smoke Exposure: No Substance Use Type: Marijuana Advance Directives Date on File: 08/30/21 service: No Current occupational status: unemployed Current occupational exposures/hazards: No Cognitive needs: No Hearing needs: No Vision needs: Yes (glasses) Course Course Course Narrative: This is an RME: Additional HPI, ROS, PE not included below will be deferred to primary provider. This is a [id number] presenting to the ER for evaluation of R wrist pain x 5 days after window falling onto her right wrist. TTP overlying distal radius with some edema noted. radial pulses palpated. Elbow and hand nontender. Plan: Wrist xray ordered. Discharge Plan Discharge Prescriptions: No Action cholecalciferol (vitamin D3) 1,250 mcg (50,000 unit) capsule 1,250 mcg PO QWEEK Qty: 14 1RF albuterol sulfate 90 mcg/actuation HFA aerosol inhaler 2 puff inhalation QID PRN (Reason: shortness of breath or wheezing) 30 Days Qty: 6.7 3RF bupropion HCl 150 mg tablet sustained-release 12 hr 150 mg PO Q12H Qty: 180 1RF pantoprazole 20 mg tablet,delayed release (DR/EC) 20 mg PO DAILY Qty: 90 1RF metoprolol tartrate 100 mg tablet 100 mg PO BID Qty: 180 1RF methadone 10 mg/mL concentrate 60 mg PO DAILY Rx Instructions: Dose per [employer] verified by RN on 08/28/21 folic acid 1 mg tablet 1 mg PO DAILY Qty: 90 1RF
--- NOTE | 2023-04-20 19:09 | ED.UPPEXIN ---
HPI - Extremity Injury (Upper) General Chief Complaint: Extremity Injury, Upper Stated Complaint: Right hand injury Time Seen by Provider: 04/20/23 18:57 Source: patient Mode of arrival: ambulatory Limitations: no limitations History of Present Illness MD complaint: injury to: right and wrist Onset (ago): day(s) (5) Other injuries: none Handedness: right Place: home Severity: moderate Relieving factors: immobilization Exacerbating factors: movement of extremity Context: direct blow (heavy old window fell on top of hand) Associated symptoms: denies other symptoms Related Data Home Medications Medication Instructions Recorded Confirmed methadone 10 mg/mL oral concentrate 60 mg PO DAILY 02/21/22 02/21/22 Previous Rx's Medication Instructions Recorded folic acid 1 mg tablet 1 mg PO DAILY #90 tabs 02/21/22 cholecalciferol (vitamin D3) 1,250 1,250 mcg PO QWEEK #14 caps 09/13/22 mcg (50,000 unit) capsule albuterol sulfate 90 mcg/actuation 2 puff inhalation QID PRN 12/16/22 aerosol inhaler shortness of breath or wheezing 30 days #6.7 grams bupropion HCl 150 mg tablet,12 hr 150 mg PO Q12H #180 caps 12/19/22 sustained-release pantoprazole 20 mg tablet,delayed 20 mg PO DAILY #90 tabs 01/22/23 release metoprolol tartrate 100 mg tablet 100 mg PO BID #180 tabs 01/27/23 Allergies Allergy/AdvReac Type Severity Reaction Status Date / Time No Known Allergies Allergy Verified 11/09/22 16:04 Review of Systems Review of Systems: Constitutional : No Fever, No Chills Cardiovascular : No Chest Pain, No SOB Respiratory : No Cough, No Dyspnea Gastrointestinal : No Nausea, No Vomiting, No Diarrhea, No abdominal Pain Genitourinary : No Dysuria, No Hematuria Musculoskeletal : positive joint pain, No Myalgias, pos Joint Swelling Skin : No Skin lacerations, No rash Neuro : No Weakness, No Numbness All other systems reviewed and are negative [facility] Past Medical History Medical History (Updated 04/20/23 @ 19:15 by Irma Win DO) Acute deep vein thrombosis (DVT) of right lower extremity Alcohol abuse Asthma Chronic appendicitis Chronic neck pain Depression GERD (gastroesophageal reflux disease) H/O supraventricular tachycardia Hypertension Left breast lump Methadone use Numbness and tingling of both upper extremities On beta eri at home Screening for breast cancer SVT (supraventricular tachycardia) Surgical History History of excision of pilonidal cyst S/P lumpectomy, left breast Family History Family History Mother Substance abuse Father No problems noted. 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 pediatric acute care unit nurse to a significant other at home: Yes (3 year old) Do you presently have visiting nurse or other home services: No Alcohol intake: current Alcohol intake frequency: a few times a week Patient Tobacco Use Status: Current everyday Tobacco user Tobacco use type: Cigarette Cigarettes Per Day: 10 e-Cigarette/Vaping Use: Never Used Second Hand Smoke Exposure: No Substance Use Type: Marijuana Advance Directives: Yes Advance Directives on File: Yes Advance Directives Date on File: 08/30/21 service: No Current occupational status: unemployed Current occupational exposures/hazards: No Cognitive needs: No Hearing needs: No Vision needs: Yes (glasses) Physical Exam Vital Signs: Vital Signs: Last Vital Signs Temp 98.3 F 04/20/23 17:18 Pulse 74 04/20/23 17:18 Resp 16 04/20/23 17:18 BP 144/105 H 04/20/23 17:18 Pulse Ox 98 04/20/23 17:18 O2 Del Method Room Air 04/20/23 17:18 BMI result Body Mass Index 32.6 Appearance: Alert. Oriented X3. No acute distress. Eyes: Pupils equal, round and reactive to light. ENT: Pharynx normal. Neck: Normal inspection. Neck supple. CVS: Pulses normal. Respiratory: No respiratory distress. Abdomen: atraumatic Skin: Skin warm and dry. Normal skin color. Extremities: No lower extremity edema. ttp along dorsum of R wrist resolving contusion - distal NV intact Neuro: Oriented X 3. No motor deficit. No sensory deficit. Medical Decision Making Medical Decision Making MDM Narrative: 42 yo female R hand dominant here with R hand pain NV intact after window dropped on it - xray ordered at this time NV intact, small contusion noted pain on dorsum. no other injuries noted. Differential Diagnosis Differential Diagnoses: The differential diagnosis associated with the presentation includes fracture, strain, tendonitis Independent Interpretation I performed an independent interpretation of an: Plain X-Ray (no obvious fracture) External Record Review External record reviewed: Inpatient record Procedures Orthopedic Splinting/Casting Injury #1: Side: right Upper Extremity Injury Location: wrist Upper Extremity Immobilizer: wrist splint Additional Comments: NV intact afterwards Discharge Plan Discharge Clinical Impression: Contusion of right wrist Qualifiers: Encounter type: initial encounter Qualified Code(s): S60.211A - Contusion of right wrist, initial encounter Patient Disposition: Home, Self-Care Instructions: Wrist Injury (ED), Contusion in Adults (ED) Additional Instructions: return to ED for any worsening symptoms or concerns return for worsening pain, numbness, tingling, No fracture noted on xray. if this persists you should see your doctor for repeat xrays in 5 days or even MRI. Prescriptions: No Action cholecalciferol (vitamin D3) 1,250 mcg (50,000 unit) capsule 1,250 mcg PO QWEEK Qty: 14 1RF albuterol sulfate 90 mcg/actuation HFA aerosol inhaler 2 puff inhalation QID PRN (Reason: shortness of breath or wheezing) 30 Days Qty: 6.7 3RF bupropion HCl 150 mg tablet sustained-release 12 hr 150 mg PO Q12H Qty: 180 1RF pantoprazole 20 mg tablet,delayed release (DR/EC) 20 mg PO DAILY Qty: 90 1RF metoprolol tartrate 100 mg tablet 100 mg PO BID Qty: 180 1RF methadone 10 mg/mL concentrate 60 mg PO DAILY Rx Instructions: Dose per [employer] verified by RN on 08/28/21 folic acid 1 mg tablet 1 mg PO DAILY Qty: 90 1RF Interventions: ED Discharge Assessment Last Done: 04/20/23 19:28 Discharge Date/Time: 04/20/23 19:28
== END 2023-04-20 19:28 | disposition home or self-care (01) ==
PROVIDERS: Emergency Provider Emergency Medicine
DX: S60.211A Contusion of right wrist, initial encounter (principal); W23.0XXA Caught, crushed, jammed, or pinched between moving objects, initial encounter; I10 Essential (primary) hypertension; F11.20 Opioid dependence, uncomplicated; F12.90 Cannabis use, unspecified, uncomplicated; F17.210 Nicotine dependence, cigarettes, uncomplicated; Z79.899 Other long term (current) drug therapy; Y93.89 Activity, other specified; Y92.039 Unspecified place in apartment as the place of occurrence of the external cause; Y99.9 Unspecified external cause status
CPT/HCPCS: 29125; 73110; 99283; 99284

== ENCOUNTER 2023-04-24 13:01 | Outpatient (REF) | payer OTHER, SELFPAY ==
--- NOTE | ~2023-04-24 | XR_ITS ---
EXAMINATION: XR HAND, RIGHT CLINICAL INFORMATION: Contusion COMPARISON: None available. TECHNIQUE: PA, lateral, and oblique views of the right hand. FINDINGS: No visible discrete acute fracture or dislocation. Fingers are slightly flexed in positioning. No significant degenerative changes. No erosions. No abnormal soft tissue calcification. XR/XR hand RT 2V IMPRESSION: No radiographically evident discrete acute fracture or malalignment. If there is persistent clinical concern for symptoms, recommend evaluation with CT or MRI for radiographically occult osseous/ligamentous injury.
== END 2023-04-24 13:02 | disposition home or self-care (01) ==
LOC: HO.HMGCX 13:01
PROVIDERS: PCP Internal Medicine; Visit Provider Internal Medicine
DX: S60.221A Contusion of right hand, initial encounter (principal); X58.XXXA Exposure to other specified factors, initial encounter; Y93.9 Activity, unspecified; Y92.9 Unspecified place or not applicable; Y99.9 Unspecified external cause status
CPT/HCPCS: 73120

== ENCOUNTER 2024-02-27 08:28 | Outpatient (AMB) | payer OTHER, SELFPAY ==
--- NOTE | 2024-02-27 08:35 | MHC.PC.OV ---
Vital Signs 02/27/24 08:37 Height 5 ft 4 in Weight 154 lb 8 oz BMI 26.5 BP 100/72 Blood Pressure Location Lt brachial Position Sitting Pulse 89 Pulse Source Pulse Oximeter Pulse Oximetry (%) 99 Oxygen Delivery Method Room Air Intake Visit Reasons: Hypertension Intake Note: Patient is here to follow up on HTN and med review. Events Associate Required: No Machine Long Goods Helper: Not Required per policy Accompanied by: Self / Same As Patient Allergies No Known Allergies Allergy (Verified 02/27/24 09:20) Medication List - Last Reconciled 02/27/24 by Stanton Roberts MD albuterol sulfate 90 mcg/actuation 2 puffs inhalation QID PRN 30 days metoprolol tartrate 100 mg PO BID pantoprazole 20 mg PO DAILY Tobacco use date assessed: 02/27/24 Dental Screening Dental Screen Date: 02/27/24 Did you have a dental visit in the last 12 months?: Yes Did you have a dental problem in the last 6 months where you did not have access to dental care?: No Was dental information given to patient?: Patient has dentist HPI Hypertension HPI Details 43-year-old female presents to the office to discuss her chronic medical conditions. Patient is at baseline state of health. She is compliant with medications and taking the metoprolol twice a day. She has requesting a refill on all her medications. Has not had any blood work done recently. Patient also needs a screening mammogram. She is able to function and do all activities of daily living. Patient has been not using any illegal substances since 2018. Sleep patterns are normal. [facility] Medical History (Updated 02/27/24 @ 09:23 by Stanton Roberts MD) Tobacco use disorder H/O supraventricular tachycardia Numbness and tingling of both upper extremities Methadone use Chronic neck pain Depression On beta eri at home Chronic appendicitis Left breast lump Screening for breast cancer Alcohol abuse Acute deep vein thrombosis (DVT) of right lower extremity Asthma GERD (gastroesophageal reflux disease) SVT (supraventricular tachycardia) Hypertension Surgical History S/P lumpectomy, left breast History of excision of pilonidal cyst Family History Mother Substance abuse Father No problems noted. Maternal Aunt Cancer of unknown origin Social History Household Members: Spouse and Children Housing: House Are you a primary critical care physician to a significant other at home: Yes (3 year old) Do you presently have visiting nurse or other home services: No Alcohol intake: current Alcohol intake frequency: a few times a week Comment: refuses bed alarm Patient Tobacco Use Status: Current everyday Tobacco user Tobacco use type: Cigarette Cigarette Packs Per Day: 0.5 Cigarettes Per Day: 10 e-Cigarette/Vaping Use: Never Used Second Hand Smoke Exposure: Yes Substance Use Type: Marijuana Advance Directives Date on File: 08/30/21 service: No Current occupational status: unemployed Current occupational exposures/hazards: No Cognitive needs: No Hearing needs: No Vision needs: Yes (glasses) Female Reproductive History Menstrual Age of Menarche: 12 Questionnaire PHQ-9 Over the last 2 weeks, how often have you been bothered by any of the following problems? 1. Little interest or pleasure in doing things: not at all 2. Feeling down, depressed, or hopeless: not at all 3. Trouble falling or staying asleep, or sleeping too much: not at all 4. Feeling tired or having little energy: not at all 5. Poor appetite or overeating: not at all 6. Feeling bad about yourself - or that you are a failure or have let yourself or your family down: not at all 7. Trouble concentrating on things, such as reading the newspaper or watching television: not at all 8. Moving or speaking so slowly that other people could have noticed. Or the opposite - being so fidgety or restless that you have been moving around a lot more than usual: not at all 9. Thoughts that you would be better off or of hurting yourself in some way: not at all Total score: 0 Depression Screening Interpretation: Negative Depression Screening Done: Yes Source: Developed by Drs. Eloy Sheffield, Lexi Merlos, Gregorio Garcia and colleagues, with an educational juan jose from [employer]. Thrive Questionnaire Date Thrive assessed: 02/27/24 I am a: Patient What is your living situation today?: I have a steady place to live Within the past 12 months, did the food you bought not last and you didn't have the money to get more?: Never true Within the past 12 months, did you worry whether your food would run out before you got money to buy more?: Never true Do you have trouble paying for medicines?: No Do you have trouble getting transportation to medical appointments?: No Do you have trouble paying your heating and electricity bill?: No Do you have trouble taking care of your child, family member or friend?: No Do you have trouble with day-to-day activities such as bathing, preparing meals, shopping, managing finances, etc.?: No Are you currently unemployed and looking for a job?: No Are you interested in more education?: No Currently or been in a relationship where the following occur: no concerns reported THRIVE Score: 0 AUDIT C Alcohol Use Questionnaire (AUDIT-C) 1. How often do you have a drink containing alcohol?: 2-3 times a week 2. How many drinks containing alcohol do you have on a typical day when you are drinking?: 1 or 2 Total Score: 3 VISHAL-7 AMB Questionnaire VISHAL-7 Date VISHAL - 7 assessed: 02/27/24 Feeling nervous, anxious, or on edge: 0 = Not at all Not being able to stop or control worryin = Not at all Worrying too much about different things: 0 = Not at all Trouble relaxin = Not at all Being so restless that it is hard to sit still: 0 = Not at all Becoming easily annoyed or irritable: 0 = Not at all Feeling afraid as if something awful might happen: 0 = Not at all Total VISHAL-7 score (0-4 normal; 5-9 mild; 10-14 moderate; 15-21 severe): 0 Source: Developed by Drs. Eloy Sheffield, Lexi Merlos, Gregorio Garcia and colleagues, with an educational juan jose from [employer]. Physical exam (Primary Care) Vital Signs: Last Vital Signs Pulse 89 02/27/24 08:37 BP 100/72 02/27/24 08:37 Pulse Ox 99 02/27/24 08:37 Oxygen Delivery Method Room Air 02/27/24 08:37 Care Plan Goal for BP management: Blood pressure is in range. Continue current medications. BMI result Body Mass Index 26.5 Tobacco/Smoking Status: Tobacco use Status Tobacco use date assessed 02/27/24 02/27/24 08:43 Patient Tobacco Use Status Current everyday Tobacco 02/27/24 08:43 Tobacco use type Cigarette 02/27/24 08:43 e-Cigarette/Vaping Use Never Used 02/27/24 08:43 Are you ready to quit: No Tobacco cessation counseling provided: No PHQ-9: PHQ-9 Score PHQ-9: Total score 0 02/27/24 08:43 Depression Screening Interpretation: Negative Thrive Assessment: Date of Thrive Assessment Date Thrive assessed 02/27/24 02/27/24 08:43 Currently or been in a relationship where the following occur: no concerns reported Const General: cooperative and healthy appearing Nutritional Appearance: well nourished Orientation/consciousness: patient oriented x3 Limitations: no limitations HENMT Head: Yes normal to inspection Eyes General: appearance normal, both eyes and all related structures Neck Neck: Yes normal visual inspection Chest Chest palpation & inspection: normal palpation of entire chest wall Resp Effort & Inspection: normal respiratory effort Neuro General: patient oriented x3 Assessment and Plan Assessment & Plan (1) Hypertension: Code(s): I10 - Essential (primary) hypertension Plan: Medications have been refilled. Blood work has been ordered. Importance of diet and exercise emphasized. 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 Currently on no medications. (3) Alcohol withdrawal: Code(s): F10.239 - Alcohol dependence with withdrawal, unspecified Qualifiers: Complication of substance-induced condition: uncomplicated Qualified Code(s): F10.230 - Alcohol dependence with withdrawal, uncomplicated Plan: This condition is stable. (4) Substance abuse: Code(s): F19.10 - Other psychoactive substance abuse, uncomplicated Plan: Patient was congratulated as she has been not using substances since 2018. (5) Tobacco use disorder: Code(s): F17.200 - Nicotine dependence, unspecified, uncomplicated Plan: Counseling done to quit smoking. Orders: Orders Basic Metabolic Panel Today I10 - Essential (primary) hypertension Lipid Panel Today I10 - Essential (primary) hypertension Liver Panel Today I10 - Essential (primary) hypertension Thyroid Stimulating Hormone Today I10 - Essential (primary) hypertension UA and rflx microscopic Today I10 - Essential (primary) hypertension MM screening mammo BI Today Z12.31 - Encounter for screening mammogram for malignant neoplasm of breast Medications: Refilled pantoprazole 20 mg PO DAILY 90 tabs 1RF albuterol sulfate 90 mcg/actuation 2 puffs inhalation QID 30 days PRN 6.7 grams 3RF shortness of breath or wheezing metoprolol tartrate 100 mg PO BID 180 tabs 1RF Coding Level of Care Code Est Pt Level 4 (86610) Diagnoses Hypertension I10 Endogenous depression F33.2 Alcohol withdrawal F10.230 Complication of substance-induced condition: uncomplicated Substance abuse F19.10 Tobacco use disorder F17.200
[2024-02-27 08:37] VITALS: BP 100/72; PULSE 89; O2SAT 99; BMI 26.5
== END 2024-02-27 10:13 | disposition home or self-care (01) ==
PROVIDERS: PCP Internal Medicine; Visit Provider Internal Medicine
DX: I10 Essential (primary) hypertension (principal); F33.2 Major depressive disorder, recurrent severe without psychotic features; F10.230 Alcohol dependence with withdrawal, uncomplicated; F19.10 Other psychoactive substance abuse, uncomplicated; F17.200 Nicotine dependence, unspecified, uncomplicated
CPT/HCPCS: 99214

== ENCOUNTER → 2024-03-11 08:45 | Outpatient (BNV) | payer OTHER, SELFPAY | PROVIDERS: PCP Internal Medicine; Visit Provider Radiology Diagnostic Radiology | DX: Z12.31 Encounter for screening mammogram for malignant neoplasm of breast (principal) | CPT/HCPCS: 77063; 77067 ==

== ENCOUNTER 2024-03-11 08:52 | Outpatient (REF) | payer OTHER, SELFPAY ==
--- NOTE | ~2024-03-11 | MM_ITS ---
EXAMINATION: MM SCREENING DIGITAL BREAST TOMOSYNTHESIS, BILATERAL CLINICAL INFORMATION: Screening. Asymptomatic. This patient reports excision of benign tissue in the left breast in 2021. COMPARISON: Mammography: This study is compared with prior exams dating back to 2020. TECHNIQUE: Digital breast tomosynthesis is performed in both the craniocaudal and mediolateral oblique views along with computer-aided detection (CAD). Synthesized 2D images are generated from the tomosynthesis. FINDINGS: There are scattered areas of fibroglandular density (ACR BI-RADS breast composition Category b). There are no significant masses, abnormal calcifications, or other abnormalities. MM/MM tomosynthesis screening BI IMPRESSION: No mammographic evidence of malignancy. ASSESSMENT: BI-RADS BI-RADS 1 - Negative RECOMMENDATION: Routine annual mammography screening. 1 year F/U This examination should not preclude the clinical evaluation of a suspicious palpable abnormality. This patient's information was entered into a reminder system with a target due date for their next mammogram.
== END 2024-03-11 08:53 | disposition home or self-care (01) ==
LOC: HO.MAMMO 08:52
PROVIDERS: PCP Internal Medicine; Visit Provider Internal Medicine
DX: Z12.31 Encounter for screening mammogram for malignant neoplasm of breast (principal)
CPT/HCPCS: 77063; 77067

== ENCOUNTER 2024-10-07 09:07 | Outpatient (AMB) | payer OTHER, SELFPAY ==
--- NOTE | 2024-10-07 09:09 | MHC.PC.OV ---
Vital Signs 10/07/24 09:10 Height 5 ft 4 in Weight 142 lb 6 oz BMI 24.4 BP 120/76 Blood Pressure Location Lt brachial Position Sitting Pulse 86 Pulse Source Pulse Oximeter Pulse Oximetry (%) 99 Oxygen Delivery Method Room Air Intake Visit Reasons: PE Intake Note: Patient is here today for a physical. Pt decline flu shot today. Finished Goods Stock Clerk Required: No Tele Marketing Executive: Not Required per policy Accompanied by: Self / Same As Patient Allergies No Known Allergies Allergy (Verified 10/07/24 09:45) Medication List - Last Reconciled 10/07/24 by Marita You PA-C albuterol sulfate 90 mcg/actuation 2 puffs inhalation QID PRN 30 days metoprolol tartrate 100 mg PO BID pantoprazole 20 mg PO DAILY Tobacco use date assessed: 10/07/24 Dental Screening Dental Screen Date: 02/27/24 [facility] Medical History (Updated 10/07/24 @ 09:45 by Marita You PA-C) Marijuana smoker Carpal tunnel syndrome Annual physical exam Tobacco use disorder H/O supraventricular tachycardia Numbness and tingling of both upper extremities Methadone use Chronic neck pain Depression On beta eri at home Chronic appendicitis Left breast lump Screening for breast cancer (~02/2024) Alcohol abuse Acute deep vein thrombosis (DVT) of right lower extremity Asthma GERD (gastroesophageal reflux disease) SVT (supraventricular tachycardia) Hypertension Surgical History S/P lumpectomy, left breast History of excision of pilonidal cyst Family History Mother Substance abuse Father No problems noted. Maternal Aunt Cancer of unknown origin Social History Household Members: Spouse and Children Housing: House Are you a primary intensive care nurse to a significant other at home: Yes (3 year old) Do you presently have visiting nurse or other home services: No Alcohol intake: current Alcohol intake frequency: a few times a week Comment: refuses bed alarm Patient Tobacco Use Status: Current everyday Tobacco user Tobacco use type: Cigarette Cigarette Packs Per Day: 0.5 Cigarettes Per Day: 10 e-Cigarette/Vaping Use: Never Used Second Hand Smoke Exposure: Yes Substance Use Type: Marijuana Advance Directives Date on File: 08/30/21 service: No Current occupational status: unemployed Current occupational exposures/hazards: No Cognitive needs: No Hearing needs: No Vision needs: Yes (glasses) Female Reproductive History Menstrual Age of Menarche: 12 Questionnaire PHQ-9 Over the last 2 weeks, how often have you been bothered by any of the following problems? 1. Little interest or pleasure in doing things: not at all 2. Feeling down, depressed, or hopeless: not at all 3. Trouble falling or staying asleep, or sleeping too much: not at all 4. Feeling tired or having little energy: several days 5. Poor appetite or overeating: not at all 6. Feeling bad about yourself - or that you are a failure or have let yourself or your family down: not at all 7. Trouble concentrating on things, such as reading the newspaper or watching television: not at all 8. Moving or speaking so slowly that other people could have noticed. Or the opposite - being so fidgety or restless that you have been moving around a lot more than usual: not at all 9. Thoughts that you would be better off or of hurting yourself in some way: not at all Total score: 1 Depression Screening Interpretation: Positive Depression Screening Done: Yes Source: Developed by Drs. Eloy Sheffield, Lexi Merlos, Gregorio Garcia and colleagues, with an educational juan jose from [employer]. Thrive Questionnaire Date Thrive assessed: 10/07/24 I am a: Patient What is your living situation today?: I have a steady place to live Within the past 12 months, did the food you bought not last and you didn't have the money to get more?: Often true Within the past 12 months, did you worry whether your food would run out before you got money to buy more?: Sometimes True Do you have trouble paying for medicines?: No Do you have trouble getting transportation to medical appointments?: No Do you have trouble paying your heating and electricity bill?: No Do you have trouble taking care of your child, family member or friend?: No Do you have trouble with day-to-day activities such as bathing, preparing meals, shopping, managing finances, etc.?: No Are you currently unemployed and looking for a job?: No Are you interested in more education?: No Please select the resources that you would like help with: None Currently or been in a relationship where the following occur: No concerns reported THRIVE Score: 2 AUDIT C Alcohol Use Questionnaire (AUDIT-C) 1. How often do you have a drink containing alcohol?: 2-3 times a week 2. How many drinks containing alcohol do you have on a typical day when you are drinking?: 1 or 2 3. How often do you have six or more drinks on one occasion?: Never Total Score: 3 VISHAL-7 AMB Questionnaire VISHAL-7 Date VISHAL - 7 assessed: 10/07/24 Feeling nervous, anxious, or on edge: 1 = Several days Not being able to stop or control worryin = Not at all Worrying too much about different things: 0 = Not at all Trouble relaxin = Not at all Being so restless that it is hard to sit still: 0 = Not at all Becoming easily annoyed or irritable: 1 = Several days Feeling afraid as if something awful might happen: 0 = Not at all Total VISHAL-7 score (0-4 normal; 5-9 mild; 10-14 moderate; 15-21 severe): 2 Source: Developed by Drs. Eloy Sheffield, Lexi Merlos, Gregorio Garcia and colleagues, with an educational juan jose from [employer]. Physical exam (Primary Care) Vital Signs: Last Vital Signs Pulse 86 10/07/24 09:10 BP 120/76 10/07/24 09:10 Pulse Ox 99 10/07/24 09:10 Oxygen Delivery Method Room Air 10/07/24 09:10 BMI result Body Mass Index 24.4 Tobacco/Smoking Status: Tobacco use Status Tobacco use date assessed 10/07/24 10/07/24 09:14 Patient Tobacco Use Status Current everyday Tobacco 10/07/24 09:14 Tobacco use type Cigarette 10/07/24 09:14 e-Cigarette/Vaping Use Never Used 10/07/24 09:14 PHQ-9: PHQ-9 Score PHQ-9: Total score 1 10/07/24 09:14 Depression Screening Interpretation: Positive Thrive Assessment: Date of Thrive Assessment Date Thrive assessed 10/07/24 10/07/24 09:14 Currently or been in a relationship where the following occur: No concerns reported Coding Level of Care Code Est Pt Prev Care 40-64y(71068) Diagnoses Annual physical exam Z00.00 Carpal tunnel syndrome G56.00 Marijuana smoker F12.90 Assessment & Plan Assessment & Plan (1) Annual physical exam: Code(s): Z00.00 - Encounter for general adult medical examination without abnormal findings Category: Medical Plan: see below (2) Carpal tunnel syndrome: Code(s): G56.00 - Carpal tunnel syndrome, unspecified upper limb Category: Medical Plan: see below (3) Marijuana smoker: Code(s): F12.90 - Cannabis use, unspecified, uncomplicated Category: Medical Plan: see below Plan Plan - For Annual Physical Exam: Patient will have fasting labs ordered at this time. - For Carpal Tunnel Syndrome: Discussed the potential for a prescription for medicinal marijuana in edible form, exploring the legal and practical aspects with Dr. Ambrose. Given the patient's preference for non-smoking forms, this will be pursued further. Patient will have to go to a marijuana clinic for prescription for medical marijuana as we do not prescribe medical marijuana at this clinic at this time. - For Nicotine Dependence: The option to pursue cessation was noted as a future consideration once the patient indicates readiness. - Health Maintenance: Advised continued monitoring and management of existing health conditions with annual reviews, including updates on vaccination status as needed. Orders: Orders Complete Blood Count Auto Diff Today Z00.00 - Encounter for general adult medical examination without abnormal findings Comprehensive [place]. Panel Fast Today Z00.00 - Encounter for general adult medical examination without abnormal findings Erythrocyte Sedimentation Rate Today Z00.00 - Encounter for general adult medical examination without abnormal findings C Reactive Protein Today Z00.00 - Encounter for general adult medical examination without abnormal findings Lipid Panel Today Z00.00 - Encounter for general adult medical examination without abnormal findings Hemoglobin A1c Today Z00.00 - Encounter for general adult medical examination without abnormal findings TSH reflex Free T4 Today Z00.00 - Encounter for general adult medical examination without abnormal findings Vitamin D 25-OH Total Today Z00.00 - Encounter for general adult medical examination without abnormal findings Vitamin B12 and Folate Today Z00.00 - Encounter for general adult medical examination without abnormal findings Medications: Refilled albuterol sulfate 90 mcg/actuation 2 puffs inhalation QID 30 days PRN 6.7 grams 3RF shortness of breath or wheezing Scribe Plan - Not visible on output: History of Present Illness The patient is a 43-year-old female presenting with concerns about Carpal Tunnel Syndrome. She reports that the condition has worsened to the point of requiring surgical intervention, but she is hesitant to proceed due to the debilitative nature of the recovery. The patient has been managing symptoms through the smoking of marijuana, which she finds more effective than other treatments tried thus far. She expresses an interest in medicinal marijuana, particularly in the form of edibles or gummies, as she dislikes smoking and finds dosing inconsistent. Her Carpal Tunnel Syndrome has been causing constant discomfort and has significantly impaired her daily activities, including driving and household tasks. Associated symptoms include decreased strength in the right wrist. Social History - The patient is not currently employed. - She is a mother of three children, ages 20, 13, and 6, with one child still residing at home. - She smokes approximately 10 cigarettes per day and has been smoking since age 14. - She expresses an interest in quitting smoking eventually. Review of Systems - Musculoskeletal: Reports decreased strength in the right wrist. - Respiratory: Denies regular need for albuterol except as necessary. - General: Reports recent upper respiratory infection with cold and fever symptoms. Physical Exam Appearance: Alert. Oriented X3. No acute distress. Head: Normal external exam. Normocephalic. Atraumatic. No Cantor signs noted. No raccoon eyes noted. Eyes: Pupils are equal, round, and reactive to light. Extraocular movements intact. Conjunctiva and sclera normal. Eyelids normal. Ears: External auditory canal normal. Tympanic membranes normal. Throat: Pharynx normal. Uvula midline. Moist mucous membranes. No trismus noted. No drooling noted. No muffled voice noted. Neck: Normal inspection. Neck supple. Full range of motion. No adenopathy. Thyroid Normal. No meningeal signs. No neck mass noted. Cardiovascular: Normal heart rate and rhythm. Heart sound normal. No murmurs noted. Pulses normal throughout. Respiratory: No respiratory distress. Painless inspiration. Breath sounds normal. No wheezes/rales/rhonchi noted. Chest nontender. No accessory muscle usage noted or decreased air movement noted. Abdomen: Soft and nontender. Bowel sounds normal in all 4 quadrants. No distention noted. No organomegaly noted. No visible injury noted. Back: No costovertebral angle tenderness. Full range of motion noted. Skin: Skin warm and dry. Normal skin color. Normal skin turgor. No rashes/lesions/lacerations noted. Extremities: No lower extremity edema. Extremities exhibit normal range of motion. Extremities nontender. Decreased strength on the right wrist. Neuro: Oriented X 3. No motor deficit. No sensory deficit. Reflexes normal. Plan - For Annual Physical Exam: Patient will have fasting labs ordered at this time. - For Carpal Tunnel Syndrome: Discussed the potential for a prescription for medicinal marijuana in edible form, exploring the legal and practical aspects with Dr. Ambrose. Given the patient's preference for non-smoking forms, this will be pursued further. Patient will have to go to a marijuana clinic for prescription for medical marijuana as we do not prescribe medical marijuana at this clinic at this time. - For Nicotine Dependence: The option to pursue cessation was noted as a future consideration once the patient indicates readiness. - Health Maintenance: Advised continued monitoring and management of existing health conditions with annual reviews, including updates on vaccination status as needed. Patient was informed and verbally consented to the use of an ambient scribe for clinic note documentation during this visit. Discussion Notes During our visit, we discussed her normal annual physical exam findings, the management of Carpal Tunnel Syndrome, including the possibility of medicinal marijuana as a non-surgical treatment modality. The patient prefers edibles due to the inconsistent dosage and distaste for smoking marijuana. I will explore this option further with Dr. Ambrose. We also reviewed her smoking habits, with a note to consider cessation support if she wishes to quit in the future. Patient will need to go to marijuana clinic for prescription for medical marijuana as we do not prescribe medical marijuana at this clinic at this time. We discussed the provision of flu vaccines available at different locations and her recent mammogram results, which were normal. The importance of regular healthcare maintenance and follow-up was emphasized. Patient Instructions - Consider obtaining combined vaccinations, including COVID-19, if desired. - Monitor symptoms of Carpal Tunnel Syndrome and consider further orthopedic evaluation if needed. - Explore smoking cessation options when ready to quit. - Maintain regular health check-ups and notify the clinic of any new or worsening symptoms.
[2024-10-07 09:10] VITALS: BP 120/76; PULSE 86; O2SAT 99; BMI 24.4
== END 2024-10-07 10:37 | disposition home or self-care (01) ==
PROVIDERS: PCP Internal Medicine; Visit Provider Physician Assistant Medical
DX: Z00.00 Encounter for general adult medical examination without abnormal findings (principal); G56.00 Carpal tunnel syndrome, unspecified upper limb; F12.90 Cannabis use, unspecified, uncomplicated

== ENCOUNTER → 2024-10-07 09:07 | Outpatient (BNVA) | payer OTHER, SELFPAY | PROVIDERS: PCP Internal Medicine; Visit Provider Physician Assistant Medical | DX: Z00.00 Encounter for general adult medical examination without abnormal findings (principal); G60.0 Hereditary motor and sensory neuropathy; F12.90 Cannabis use, unspecified, uncomplicated | CPT/HCPCS: 96127; 99396 ==